=== PATIENT | male | born 1955 | race Caucasian/White ===

== ENCOUNTER → 2023-07-09 19:28 | Outpatient (REF) | payer MEDICARE, OTHER, SELFPAY ==
[2023-07-09 19:46] LABS: Urine Albumin 1+ (Neg - Trace); Urine Bilirubin Negative (Negative); Urine Character Slightly Cloudy (Clear); Urine Color Yellow; Urine Glucose Negative (Negative); Urine Ketone Negative (Negative); Urine Leukocyte 2+ (Negative); Urine Nitrite Positive (Negative); Urine Occult Blood 1+ (Negative); Urine Urobilinogen Negative (Neg - 1+)
[2023-07-09 19:47] LABS: % Basophils 0.3 % (0-2); % Immature Granulocytes 1.9 % (0-0.5); % Lymphocytes 1.5 % (20.5-51.1); % Monocytes 1.9 % (1.7-9.3); % Neutrophils 94.4 % (42.2-75.2); Absolute Basophils 0.1 10^3/uL (0-0.2); Absolute Immature Granulocytes 0.7 10^3/uL (0-0.05); Absolute Lymphocytes 0.6 10^3/uL (1.2-3.4); Absolute Monocytes 0.7 10^3/uL (0.1-0.6); Absolute Neutrophils 33.7 10^3/uL (1.4-6.5); Hematocrit 33.6 % (39.0-52.0); Hemoglobin 11.2 g/dL (13.0-18.0); Mean Corp Hgb Conc. 33.3 g/dL (33.0-37.0); Mean Corpuscular Hgb 25.6 pg (27.0-31.0); Mean Corpuscular Volume 76.7 fL (80.0-94.0); Mean Platelet Volume 9.1 fL (7.4-10.4); Nucleated Red Blood Cells % 0 % (-); Platelet Count 423 10^3/uL (130-400); Red Blood Cell Count 4.38 10^6/uL (4.70-6.10); Red Cell Dist. Width 15.9 % (11.5-14.5); White Blood Cell Count 35.7 10^3/uL (4.8-10.8)
[2023-07-09 19:50] LABS: Urine Bacteria Moderate (Negative); Urine Squamous Cell 0-2 /LPF (Few); Urine White Cell 60-70 /HPF (0-5)
[2023-07-09 19:51] LABS: Urine Red Blood Cell 0-2 /HPF (0-2)
[2023-07-09 20:06] LABS: Blood Urea Nitrogen 24 mg/dl (9-20); Calcium 8.8 mg/dl (8.4-10.2); Carbon Dioxide 27 mmol/L (22-30); Chloride 99 mmol/L (98-107); Glucose 125 mg/dl (70-99); Potassium 4.3 mmol/L (3.5-5.1); Sodium 133 mmol/L (135-145); eGFR > 60.00
== END ==
LOC: OLAB 19:28
PROVIDERS: ATTENDING PHYSICIAN Student in an Organized Health Care Education/Training Program
DX: R50.9 Fever, unspecified (principal)
CPT/HCPCS: 80048; 81003; 81015; 85025; 87086

== ENCOUNTER 2023-07-10 01:03 | Inpatient (IN) | payer MEDICARE, SELFPAY ==
[2023-07-09 22:02] VITALS: BP 120/53
[2023-07-09 22:04] VITALS: BP 148/137
[2023-07-09 22:08] VITALS: BMI 37.3
[2023-07-09 22:11] VITALS: BP 123/53
--- NOTE | 2023-07-09 22:45 | ED.GENMED ---
History of Present Illness
General
Chief Complaint: Abnormal Lab Value
Source: patient and other (Nursing staff)
Exam Limitations: none
Time Seen by Provider: 07/09/23 22:10
Travel History
Have you had any contact with someone who has COVID-19?: No
Do you have any symptoms of coronavirus? Fever > 100 degrees, chills, cough, shortness of breath, sore throat, loss of taste or smell, muscle aches, or headache?: No
History of Present Illness
History of Present Illness:
This is a 68 year old male that comes in with c/o elevated WBC and low grade fever. Unsure when this started. Patient denies any fever, chills, chest pain, SOB, abd pain, nausea, vomiting, diarrhea, headache, dizziness.
Past History
Past History
ED Past Medical History: CAD, Cancer (Skin CA), HTN, Hypercholesterolemia, NIDDM, Hypothyroidism, Other (Multiple sclerosis, PE, PVD, Pressure ulcers, DVT, Sleep apnea, Anemia, ) and Other (prior vasovagal episodes related to constipation issues,
chronic constipation)
ED Past Surgical History: Appendectomy, Orthopedic (Right femur), Tonsilectomy (Adenoids), Urological (Suprapubic catheter) and Other (Baclofen pump insertion. IVC filter)
Social History
Tobacco: Non-smoker
Alcohol: None
Drug: None
Personal:
Living: alf
Employment: Not employed
Family History
Family History: Other (Reviewed and noncontributory)
Review of Systems
Review of Systems
All Other Systems: ROS reviewed and negative except as documented in HPI and ROS
Constitutional: Reports no symptoms; Denies fever or chills
EENT: Reports no symptoms
Respiratory: Reports no symptoms; Denies cough or trouble breathing
Cardiac: Reports no symptoms; Denies chest pain
ABD/GI: Reports no symptoms; Denies abdominal pain, nausea, vomiting or diarrhea
: Reports no symptoms
Musculoskeletal: Reports no symptoms
Skin: Reports no symptoms
Neurological: Reports no symptoms; Denies dizzy or headache
Psychiatric: Reports no symptoms
Phy Exam
General Physical Exam
General Presentation: no apparent distress
General age: appears stated age
General Skin: warm and dry
General Habitus: debilitated
General Mental: other (Lethargic but able to answer questions)
General Hydration: dry mucous membranes
ENT Exam
ENT Exam: TM's normal, pharynx normal and neck supple
Eye Exam
Eye Exam: EOMI
Cardiovascular Exam
Cardiovascular Exam: normal peripheral pulses and tachycardia
Pulmonary Exam
Pulmonary Exam: lungs clear, no respiratory distress, no rales, chest non tender, no crackles, no rhonchi, no wheezing and no cough
Gastrointestinal Exam
Gastrointestinal Exam: normal bowel sounds, non tender, soft, no organomegaly, no pulsatile mass and non distended
External Findings: other (Suprapubic catheter)
Musculoskeletal Exam
Musculoskeletal Exam: edema (Feet and lower legs nonpitting. Patient is unable to move the lower extremities. )
Skin Exam
Skin Exam: normal color, warm/dry, no petechia and redness (Bilateral hips and thighs down to knee's , Warm to touch two Sacral decubs, negative for drainage or redness. )
Psychiatric Exam
Psychiatric Exam: other (Lethargic)
Course
Orders/Labs/Results
Orders:
Orders
07/09/23 22:14
Electrocardiogram (*1) Urgent
Reason for Study: Other
Other Reason for Exam: Possible Sepsis
07/09/23 22:15
EKG- Treatment ONCE
07/09/23 22:44
Basic Metabolic Panel Urgent
Blood Culture Q30M
MARA Source: Blood/Venous
Specimen Description:
Comment: FROM 2 SEPARATE SITES
07/09/23 22:45
Complete Blood Count/With Diff Urgent
Lactic Acid Q4H
Comment: ON ICE, CANCEL 2ND ORDER IF FIRST LACTIC ACID LEVEL <2
Urinalysis Reflex To Culture Urgent
Date Specimen was Collected: 07/09/23
Time Specimen was Collected: 22:15
Urine Microscopic Reflex Cult Urgent
Blood Culture Q30M
MARA Source: Blood/Venous
Specimen Description:
Comment: FROM 2 SEPARATE SITES
Urine Culture Urgent
MARA Source: U
Specimen Description:
Date Specimen was Collected: 07/09/23
Time Specimen was Collected: 22:15
07/09/23 22:46
Rectal Temp- Treatment ONCE
07/09/23 23:42
Piperacillin/Tazo 3.375 Gram [Zosyn] 3.375 gram in 50 ml IV NOW
Vancomycin 1 Gram/200 ml [Vancocin] 1 gram in 200 ml IV NOW
07/09/23 23:45
0.9% Sodium Chloride 1000 ml [Nss] 1,000 ml IV 2,000 mls/hr
07/09/23 23:51
COVID-19 Antigen Urgent
Source: Nasal Swab
Influenza A+B Rapid Molecular Urgent
MARA Source: Nasal Swab
Specimen Description:
07/10/23 00:06
CR Chest - 2 Views Urgent
Reason For Exam: Fever
07/10/23 02:15
Lactic Acid Q4H
Comment: ON ICE, CANCEL 2ND ORDER IF FIRST LACTIC ACID LEVEL <2
Abnormal Lab Results
07/09/23 07/09/23
22:44 22:45
WBC 42.7 H* 10^3/uL
(4.8-10.8)
RBC 4.57 L 10^6/uL
(4.70-6.10)
Hgb 11.6 L g/dL
(13.0-18.0)
Hct 34.3 L %
(39.0-52.0)
MCV 75.1 L fL
(80.0-94.0)
MCH 25.4 L pg
(27.0-31.0)
RDW 16.3 H %
(11.5-14.5)
Abs Immat Gran (auto) 0.7 H 10^3/uL
(0-0.05)
Absolute Neuts (auto) 41.1 H 10^3/uL
(1.4-6.5)
Absolute Lymphs (auto) 0.5 L 10^3/uL
(1.2-3.4)
Immature Gran % 1.5 H %
(0-0.5)
Neutrophils % 96.2 H %
(42.2-75.2)
Lymphocytes % 1.1 L %
(20.5-51.1)
Monocytes % 0.9 L %
(1.7-9.3)
Sodium 133 L mmol/L
(135-145)
Carbon Dioxide 20 L mmol/L
(22-30)
BUN 24 H mg/dl
(9-20)
Glucose 123 H mg/dl
(70-99)
Lactic Acid 3.6 H mmol/L
(0.7-2.0)
Urine Nitrite (Reflex) Positive A
(Negative)
Leukocyte Esterase Rfl 2+ A
(Negative)
Urine RBC 7-10 A /HPF
(0-2)
Urine WBC (Reflex) 21-25 A /HPF
(0-5)
Urine Bacteria (Reflex) Many A
(Negative)
07/09/23 22:45
07/09/23 22:44
Leukocytosis, H/H slighty low. Sodium slightly low. Carbon dioxide low. Dehydration. Glucose nonfasting. Lactic acid elevated to 3.6, Urine questionable for infection. COVID negative, Influenza negative.
Vital Signs
Initial and Last Documented VS:
Initial Vital Signs
Temp Pulse Resp BP Pulse Ox
98.4 F 100 28 120/53 96
07/09/23 22:02 07/09/23 22:02 07/09/23 22:02 07/09/23 22:02 07/09/23 22:02
Last Documented Vital Signs
Temp Pulse Resp BP Pulse Ox
101.5 F H 101 26 121/68 96
07/09/23 22:46 07/09/23 23:30 07/09/23 22:11 07/09/23 23:10 07/09/23 23:30
MDM/Problems Addressed
Differential Diagnosis Includes:
UTI, COVID, Influenza. Cellulitis.
MDM/Problems Addressed:
This is a 68 year old male that comes in with c/o elevated WBC and weakness. Patient states that he also has a low grade fever.
Will get labs, Urine, Chest, Test for COVID and Influenza.
Chronic conditions affecting care: DM and Other (Suprapubic catheter,, Sacral decub)
Acute Exacerbation and/or Progression of Chronic Illness: DM and Other (Suprapubic catheter. Sacral decub)
*Pulse Oximetry
Patient hypoxic: no
*Automatic Coin Machine Mechanic Interpretation
Rate: tachycardiac
Heart Rate: 100
Rhythm: sinus tachycardia
*Critical Care Note
Total Time (30-74mins, 75-104mins- exclusive of procedures): Not Applicable
ED Attending Note
-
Portions of this chart may have been created with voice recognition software.� Occasional wrong word or��sound alike� substitutions may have occurred due to the inherent limitations of voice recognition software.
Discharge Plan
Departure
Patient Disposition: Admit
Date of Disposition: 07/09/23
Time of Disposition: 23:51
Presentation/result/management discussed w/ accepting MD/DO: Hospitalist
Patient with high blood pressure during this ER visit?: No
Condition: Good
Discharge Problem:
Cellulitis bilateral hips and thighs, Possible UTI
Prescriptions:
No Action
metformin 500 mg Tablet
500 mg PO BID@0830,1830
atorvastatin 20 mg Tablet
20 mg PO HS
sennosides-docusate sodium [Senokot-S] 8.6-50 mg Tablet
2 tab-cap PO BID
magnesium hydroxide [Milk of Magnesia] 400 mg/5 mL Suspension
30 ml PO HS PRN (Reason: constipation)
ferrous sulfate 325 mg (65 mg iron) Tablet
325 mg PO MOWEFR
levothyroxine 150 mcg Tablet
150 mcg PO DAILY@0630
omeprazole 20 mg Capsule,Delayed Release(Dr/Ec)
20 mg PO HS
Xarelto 20 mg Tablet
20 mg PO QPM
magnesium oxide 400 mg magnesium Tablet
400 mg PO BID
acetaminophen 325 MG tablet
650 mg PO Q4HPRN PRN (Reason: fever>100.4, mild pain)
bisacodyl 10 MG suppository
10 mg ND [id number] PRN (Reason: if no bm on 3rd day)
ezetimibe 10 MG tablet
10 mg PO DAILY
Visbiome 112.5 billion cell Capsule
1 cap PO BID
calcium carbonate [Calcium 600] 600 mg calcium (1,500 mg) Tablet
600 mg PO BID
ergocalciferol (vitamin D2) 1,250 mcg (50,000 unit) Capsule
1,250 mcg PO WE
polyethylene glycol 3350 [HealthyLax] 17 gram Powder In Packet
17 g PO BID Qty: 0 0RF
pantoprazole 40 mg Tablet,Delayed Release (Dr/Ec)
40 mg PO DAILY Qty: 0 0RF
metoprolol succinate [Toprol XL] 50 mg tablet extended release 24 hr
50 mg PO DAILY Qty: 30 0RF
simethicone 80 mg Tablet,Chewable
80 mg PO AC
melatonin 5 mg Tablet
5 mg PO HS
Movantik 25 mg tablet
12.5 mg PO DAILY
Patient Own Medication Pump
intrathecal .CONTINUOUS
Rx Instructions:
baclofen and morphine
potassium chloride [Klor-Con M20] 20 mEq tablet,ER particles/crystals
20 meq PO BID
sulfamethoxazole-trimethoprim 800-160 mg Tablet
1 tab PO BID Qty: 1 0RF
Rx Instructions:
One dose today evening and stop.
cephalexin 500 mg Capsule
500 mg PO QID Qty: 7 0RF
Rx Instructions:
Last dose 11/17 Evening
Referrals:
UNKNOWN - PT NOT,INTERVIEWE [Family Provider] -
Interventions
Interventions:
*Risk Screen - Suicide Last Done: 07/10/23 00:04
*General Assessment Last Done: 07/10/23 00:04
*Neglect/Abuse Screening Last Done: 07/10/23 00:04
ED- Fall Risk Assessment Last Done: 07/09/23 22:49
*ED COVID-19 Vaccine History Last Done: 07/10/23 00:04
[2023-07-09 22:59] LABS: % Basophils 0.3 % (0-2); % Immature Granulocytes 1.5 % (0-0.5); % Lymphocytes 1.1 % (20.5-51.1); % Monocytes 0.9 % (1.7-9.3); % Neutrophils 96.2 % (42.2-75.2); Absolute Basophils 0.1 10^3/uL (0-0.2); Absolute Immature Granulocytes 0.7 10^3/uL (0-0.05); Absolute Lymphocytes 0.5 10^3/uL (1.2-3.4); Absolute Monocytes 0.4 10^3/uL (0.1-0.6); Absolute Neutrophils 41.1 10^3/uL (1.4-6.5); Hematocrit 34.3 % (39.0-52.0); Hemoglobin 11.6 g/dL (13.0-18.0); Mean Corp Hgb Conc. 33.8 g/dL (33.0-37.0); Mean Corpuscular Hgb 25.4 pg (27.0-31.0); Mean Corpuscular Volume 75.1 fL (80.0-94.0); Mean Platelet Volume 9.3 fL (7.4-10.4); Nucleated Red Blood Cells % 0 % (-); Platelet Count 318 10^3/uL (130-400); Red Blood Cell Count 4.57 10^6/uL (4.70-6.10); Red Cell Dist. Width 16.3 % (11.5-14.5)
[2023-07-09 23:05] LABS: White Blood Cell Count 42.7 10^3/uL (4.8-10.8)
[2023-07-09 23:10] VITALS: BP 121/68
[2023-07-09 23:19] LABS: Blood Urea Nitrogen 24 mg/dl (9-20); Calcium 8.8 mg/dl (8.4-10.2); Carbon Dioxide 20 mmol/L (22-30); Chloride 101 mmol/L (98-107); Estimated Creatinine Clearance > 125 ml/min; Glucose 123 mg/dl (70-99); Sodium 133 mmol/L (135-145); eGFR > 60.00
[2023-07-09 23:23] LABS: Lactic Acid 3.6 mmol/L (0.7-2.0)
[2023-07-09 23:26] LABS: Urine Albumin Trace (Neg - Trace); Urine Bilirubin Negative (Negative); Urine Character Clear (Clear); Urine Color Yellow; Urine Glucose Negative (Negative); Urine Ketone Negative (Negative); Urine Leukocyte 2+ (Negative); Urine Nitrite Positive (Negative); Urine Occult Blood Negative (Negative); Urine Urobilinogen Negative (Neg - 1+)
[2023-07-09] MEDS: ZOSYN 50 IV (23:53)
[2023-07-09] MEDS: NSS 1000 IV (23:54)
[2023-07-10] VITALS (70 sets, daily range): BP systolic 73–157; BP diastolic 43–82; BMI 40.3; BMI 40.0
[2023-07-10 00:15] LABS: COVID-19 Antigen Negative (Negative)
[2023-07-10 00:18] LABS: Urine Amorphous Seen; Urine Bacteria Many (Negative); Urine White Cell 21-25 /HPF (0-5)
[2023-07-10] MEDS: VANCOCIN 200 IV ×2 (00:23→02:54)
--- NOTE | 2023-07-10 00:33 | HPS.HSE ---
Addendum entered and electronically signed by Thomas Lafleur MD 07/10/23 01:53:
SPC cath fell out - Urology consulted by ICU REFRACTORY SPECIALIST
Original Note:
Family Physician
-
Family Physician: INTERVIEWE UNKNOWN - PT NOT
Chief Complaint
-
leucocytosis and low grade fever.
History of Present Illness
68 paraplegic M NH Res, HX MS, Morbidly obese, multiple comorbiddies seen at ER for evalaution of severe progressive leucocytosis and low grade fever. Unsure when this started.
Noted T 101.5 at ER, ST and stable BP at ER
Medical History
Past Medical History
Past Medical History: Reports Other
Additional Past Medical History:
Supraventricular tachycardia.
Abdominal pain and constipation induced by narcotics.
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
Multiple sclerosis.
Paraplegia.
Anemia.
Chronic pain syndrome.
Neurogenic bladder.
Diabetes.
Obesity.
Hyperlipidemia.
History of deep venous thrombosis.
Hypothyroidism.
Functional paraplegia
History of pulmonary embolism
Katiuska's Syndrome
Past Surgical History: Reports Other
Additional Past Surgical History:
IVC Filter
Baclofen/Morphine Pump
Appendectomy
Suprapubic Catheter
Social History
Tobacco: Non-smoker
Alcohol: None
Living: [facility]
Family History
Family History: Not pertinent
Allergies / Home Medications
Allergies reflects when Allergies were last updated in [employer].
Home Medications with original date entered in [employer]
Allergy/Medication List:
Allergies
Allergy/AdvReac Type Severity Reaction Status Date / Time
albumin human [From Avonex] Allergy FLU-LIKE Verified 11/09/22 13:28
S/S
interferon beta-1a Allergy FLU-LIKE Verified 11/09/22 13:28
[From Avonex] S/S
shellfish derived Allergy Unknown Verified 11/09/22 13:28
Home Medications
acetaminophen 325 mg tablet 650 mg PO Q4HPRN PRN fever>100.4, mild pain 07/13/22
atorvastatin 20 mg tablet 20 mg PO HS High cholesterol 07/13/22
bisacodyl 10 mg rectal suppository 10 mg GA [id number] PRN if no bm on 3rd day 07/13/22
ezetimibe 10 mg tablet 10 mg PO DAILY High cholesterol 07/13/22
ferrous sulfate 325 mg (65 mg iron) tablet 325 mg PO MOWEFR Supplement 07/13/22
levothyroxine 150 mcg tablet 150 mcg PO DAILY@0630 Thyroid 07/13/22
magnesium hydroxide 400 mg/5 mL oral suspension (Milk of Magnesia) 30 ml PO HS PRN constipation 07/13/22
magnesium oxide 400 mg PO BID Electrolyte Repletion 07/13/22
metformin 500 mg tablet 500 mg PO BID@0830,1830 Diabetes 07/13/22
omeprazole 20 mg capsule,delayed release 20 mg PO HS Gastrointestinal issue 07/13/22
rivaroxaban 20 mg tablet (Xarelto) 20 mg PO QPM Blood clot prevention/tx 07/13/22
sennosides 8.6 mg-docusate sodium 50 mg tablet (Senokot-S) 2 tab-cap PO BID Constipation 07/13/22
Lactobac no.2-Bifidobac no.1-S. thermo 112.5 billion cell capsule (Visbiome) 1 cap PO BID Supplement 07/20/22
calcium carbonate 600 mg calcium (1,500 mg) tablet (Calcium) 600 mg PO BID Supplement 09/11/22
ergocalciferol (vitamin D2) 1,250 mcg (50,000 unit) capsule 1,250 mcg PO WE Supplement 09/11/22
metoprolol succinate 50 mg tablet,extended release 24 hr (Toprol XL) 50 mg PO DAILY #30 tabs 09/16/22
pantoprazole 40 mg tablet,delayed release 40 mg PO DAILY #0 tabs 09/16/22
polyethylene glycol 3350 17 gram oral powder packet (HealthyLax) 17 g PO BID #0 ea 09/16/22
Patient Own Medication Pump intrathecal .CONTINUOUS Pain 11/09/22
melatonin 5 mg tablet 5 mg PO HS Sleep 11/09/22
naloxegol 25 mg tablet (Movantik) 12.5 mg PO DAILY Gastrointestinal Issue 11/09/22
simethicone 80 mg chewable tablet 80 mg PO AC Gastrointestinal Issue 11/09/22
potassium chloride 20 mEq tablet,extended release(part/cryst) (Klor-Con M) 20 meq PO BID Electrolyte Repletion 11/10/22
<del>cephalexin</del> <del>500</del> <del>mg</del> <del>capsule</del> <del>500</del> <del>mg</del> <del>PO</del> <del>QID</del> <del>Cellulitis</del> <del>#7</del> <del>caps</del> <del>11/14/22</del>
<del>sulfamethoxazole</del> <del>800</del> <del>mg-trimethoprim</del> <del>160</del> <del>mg</del> <del>tablet</del> <del>1</del> <del>tab</del> <del>PO</del> <del>BID</del> <del>E</del> <del>coli</del> <del>UTI</del> <del>#1</del> <del>tab</del>
<del>11/14/22</del>
Review of Systems
-
EENT: Reports No Symptoms
Respiratory: Reports No Symptoms
Cardiac: Reports No Symptoms
Abdomen/GI: Reports No Symptoms
: Reports No Symptoms
Musculoskeletal: Reports No Symptoms
Skin: Reports See HPI
Neurological: Reports No Symptoms
Endocrine: Reports No Symptoms
Hematologic/Lymphatic: Reports No Symptoms
Psych: Reports No Symptoms
Physical Exam
Vital Signs
Vital Signs
Temp Pulse Resp BP Pulse Ox
101.5 F H 108 26 136/80 97
07/09/23 22:46 07/10/23 00:00 07/09/23 22:11 07/10/23 00:00 07/10/23 00:00
Physical Exam
HEENT: Other (see below )
Laboratory Results
-
07/09/23 22:45
07/09/23 22:44
Laboratory Results
Lactic Acid 3.6 mmol/L (0.7-2.0) H 07/09/23 22:45
Total Bilirubin Cancelled 07/09/23 22:44
AST Cancelled 07/09/23 22:44
ALT Cancelled 07/09/23 22:44
Alkaline Phosphatase Cancelled 07/09/23 22:44
Data Reviewed
-
Lab Data: Labs Reviewed by me
Old Records: Reviewed
Impression/Plan
-
Reviewed VS: T 101.5 ST 100 BP 120/70 RR 26
PE: Morbidly Obese
Gen: Lethargic but able to answer questions
HEENT: dry OM
Neck: supple
Lungs: clear, no respiratory distress, no rales,
Cor: RRR S1 S2
Abdomen: soft NT NG
: Suprapubic catheter
SUPPRESSION CREW LEADER:
MS: Erythema noted. No crepitus or hemorrhagic bullae.
Skin: Warm to touch bilateral hips and thighs down to knee's
two Sacral decub, no drainage or redness.
Psych: Lethargic
Data
WCC 35--> 42
Hgb 11.6
Na 133
CO2 20
BUN 24
nl Cr
BG 123
Pending LA
Abnormal UA suspect for UTI
UCx sent
BCx sent
Pending Covid
EKG
SINUS TACHYCARDIA
NONSPECIFIC ST AND T WAVE ABNORMALITY
ABNORMAL ECG
WHEN COMPARED WITH ECG OF 09-NOV-2022 17:52,
NO SIGNIFICANT CHANGE WAS FOUND
Last hospitalist admission 11/09/22- 11/04/22
Principal DC DXs :
Severe sepsis secondary to right leg cellulitis
Urinary tract infection
Nausea and vomiting
Chronic Discharge diagnosis :
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
Multiple sclerosis and paraplegia
Neurogenic bladder with chronic suprapubic catheter
Chronic pain and narcotic dependence
Morphine and baclofen pain pump in place
Iron deficiency anemia
Zqq-[id number]-vthcemxoj diabetes mellitus
Obesity due to excessive calorie intake
Hyperlipidemia
History of deep venous thrombosis and inferior vena cava filter placement
Hypothyroidism
ASSESSMENT & PLAN
Severe sepsis likely due right thigh cellulitis vs CAUTI vs sacral wound
POS Severe leukocytosis
Pending LA
HX Neurogenic bladder wear chronic SPC
- Septic bolus IV NS
- Empiric IV vanco and Zosyn
- f/u UA, UCx, BCx
- Supportive care
- ID consult
HX SVT�AVNRT
- cont HEAD OF [employer]NER DEVELOPMENT Cardizem
Sacral decube and left ischium unstageable pressure injury
- wound care consult
HX Multiple sclerosis/paraplegia
- supportive care
Chronic pain syndrome/chronic opiate dependence
- on morphine and baclofen pain pump.
DMT2
-hold metformin,
- add Low SSI
Class II Obesity due to excess calories
Hyperlipidemia
- cont. Statin, Zetia
HX DVT/IVC filter
-on [employer]OP[employer] Xarelto.
Hypothyroidism
- cont. [employer]ELOP[employer] Synthroid.
DVT Px: on chr Xarelto
Code: Full
IMU
[2023-07-10] MEDS: NSS 1000 IV ×4 (02:41→16:04)
[2023-07-10] MEDS: TYLENOL/FEVERALL 1000 MG RECTAL (02:49)
--- NOTE | 2023-07-10 04:14 | PTCARENOTE ---
Addendum entered by Patricia Boykin RN 07/10/23 04:23:
O2 sat 95% room air.Close observation ongoing throughout the night.
Original Note:
Received pt from ER,lethargic answering yes or no,flat affect,tolerated transfer well.Pts physical assessment preformed,buttocks red and presents with 2 drsgs,(see wound assessment in work list),VS recorded ST conveyor monitor,rectal temp
102.7,rectal tylenol given after assessment,with turning and assessment suprapubic catheter slid out,balloon was NOT inflated on cath tip.Urology called (Ramon) by our DECAL MAKER,he stated to reinsert,Marianne RN inserted #22 thomas catheter with
ease,immediate yellow urine return,no trauma at meatal site.IVF NSS infusing,bp stable,no resp issues,O2 sat9
[2023-07-10 04:17] LABS: Hematocrit 37.2 % (39.0-52.0); Hemoglobin 12.2 g/dL (13.0-18.0); Mean Corp Hgb Conc. 32.8 g/dL (33.0-37.0); Mean Corpuscular Hgb 25.5 pg (27.0-31.0); Mean Corpuscular Volume 77.7 fL (80.0-94.0); Mean Platelet Volume 8.6 fL (7.4-10.4); Platelet Count 372 10^3/uL (130-400); Red Blood Cell Count 4.79 10^6/uL (4.70-6.10); Red Cell Dist. Width 16.3 % (11.5-14.5); White Blood Cell Count 38.5 10^3/uL (4.8-10.8)
[2023-07-10 04:33] LABS: Lactic Acid 4.8 mmol/L (0.7-2.0)
[2023-07-10 04:40] LABS: ALT (SGPT) 18 U/L (0-50); AST (SGOT) 26 U/L (17-59); Albumin 3.4 g/dl (3.5-5.0); Alkaline Phosphatase 133 U/L (38-126); Blood Urea Nitrogen 20 mg/dl (9-20); Calcium 8.7 mg/dl (8.4-10.2); Carbon Dioxide 22 mmol/L (22-30); Chloride 101 mmol/L (98-107); Estimated Creatinine Clearance > 125 ml/min; Glucose 153 mg/dl (70-99); Potassium 4.5 mmol/L (3.5-5.1); Sodium 134 mmol/L (135-145); Total Bilirubin 0.8 mg/dl (0.2-1.3); Total Protein 7.2 g/dl (6.3-8.2); eGFR > 60.00
[2023-07-10] MEDS: ZOSYN 50 IV ×2 (06:11→11:51)
[2023-07-10] MEDS: NSS 250 IV (06:14)
--- NOTE | 2023-07-10 06:21 | CONS.URO ---
Consultation
-
Date/Time Consultation Performed: 07/10/23 06
Performing Provider: Ramon
Reason for Consultation: SPT
Medical History
History of Present Illness
68 paraplegic M NH Res, HX MS, Morbidly obese, multiple comorbiddies seen at ER for evalaution of severe progressive leucocytosis� and low grade fever.
existing SPT 'fell out' -- fortunately RN was able to replace w/o issue
Past Medical History
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
Chronic pain and narcotic dependence Morphine and baclofen pain pump in place Ir)
Allergies/Home Medications
Allergies
Allergy/AdvReac Type Severity Reaction Status Date / Time
albumin human [From Avonex] Allergy FLU-LIKE Verified 11/09/22 13:28
S/S
interferon beta-1a Allergy FLU-LIKE Verified 11/09/22 13:28
[From Avonex] S/S
shellfish derived Allergy Unknown Verified 11/09/22 13:28
Home Medications
Medication Instructions Recorded Confirmed Type
acetaminophen 325 mg tablet 650 mg PO Q4HPRN PRN fever>100.4, 07/13/22 11/09/22 History
mild pain
atorvastatin 20 mg tablet 20 mg PO HS High cholesterol 07/13/22 11/09/22 History
bisacodyl 10 mg rectal suppository 10 mg NC [id number] PRN if no bm on 07/13/22 11/09/22 History
3rd day
ezetimibe 10 mg tablet 10 mg PO DAILY High cholesterol 07/13/22 11/09/22 History
ferrous sulfate 325 mg (65 mg 325 mg PO MOWEFR Supplement 07/13/22 11/09/22 History
iron) tablet
levothyroxine 150 mcg tablet 150 mcg PO DAILY@0630 Thyroid 07/13/22 11/09/22 History
magnesium hydroxide 400 mg/5 mL 30 ml PO HS PRN constipation 07/13/22 11/09/22 History
oral suspension (Milk of Magnesia)
magnesium oxide 400 mg PO BID Electrolyte Repletion 07/13/22 11/09/22 History
metformin 500 mg tablet 500 mg PO BID@0830,1830 Diabetes 07/13/22 11/09/22 History
omeprazole 20 mg capsule,delayed 20 mg PO HS Gastrointestinal issue 07/13/22 11/09/22 History
release
rivaroxaban 20 mg tablet (Xarelto) 20 mg PO QPM Blood clot 07/13/22 11/09/22 History
prevention/tx
sennosides 8.6 mg-docusate sodium 2 tab-cap PO BID Constipation 07/13/22 11/09/22 History
50 mg tablet (Senokot-S)
Lactobac no.2-Bifidobac no.1-S. 1 cap PO BID Supplement 07/20/22 11/09/22 History
thermo 112.5 billion cell capsule
(Visbiome)
calcium carbonate 600 mg calcium 600 mg PO BID Supplement 09/11/22 11/09/22 History
(1,500 mg) tablet (Calcium)
ergocalciferol (vitamin D2) 1,250 1,250 mcg PO WE Supplement 09/11/22 11/09/22 History
mcg (50,000 unit) capsule
metoprolol succinate 50 mg 50 mg PO DAILY #30 tabs 09/16/22 11/09/22 Rx
tablet,extended release 24 hr
(Toprol XL)
pantoprazole 40 mg tablet,delayed 40 mg PO DAILY #0 tabs 09/16/22 11/09/22 Rx
release
polyethylene glycol 3350 17 gram 17 g PO BID #0 ea 09/16/22 11/09/22 Rx
oral powder packet (HealthyLax)
Patient Own Medication Pump intrathecal .CONTINUOUS Pain 11/09/22 History
melatonin 5 mg tablet 5 mg PO HS Sleep 11/09/22 11/09/22 History
naloxegol 25 mg tablet (Movantik) 12.5 mg PO DAILY Gastrointestinal 11/09/22 11/09/22 History
Issue
simethicone 80 mg chewable tablet 80 mg PO AC Gastrointestinal Issue 11/09/22 11/09/22 History
potassium chloride 20 mEq 20 meq PO BID Electrolyte Repletion 11/10/22 11/09/22 History
tablet,extended
release(part/cryst) (Klor-Con M)
cephalexin 500 mg capsule 500 mg PO QID Cellulitis #7 caps 11/14/22 Rx
sulfamethoxazole 800 1 tab PO BID E coli UTI #1 tab 11/14/22 Rx
mg-trimethoprim 160 mg tablet
Physical Exam
Vital Signs
Vital Signs
Temp Pulse Resp BP Pulse Ox
100.2 F 107 19 141/82 94
07/10/23 06:20 07/10/23 02:45 07/10/23 02:45 07/10/23 02:12 07/10/23 03:47
Lab / Testing Results
Laboratory Results
07/10/23 04:09
07/10/23 04:09
Physical Exam
adult, obese male supine in ICU bed
Genito-urinary: Suprapubic Tube (via mature aperture draining zeinab urine)
Assessment / Plan
-
transient, inadvertent SPT dislodgement --> successfully replace and functioning normally
Data Reviewed
-
Old Records: Reviewed
--- NOTE | 2023-07-10 07:54 | PHA.VAN.IN ---
Assessment
- Assessment
Renal Function: Appears similar to baseline
Renal Function may be Overestimated due to: Obesity. BMI = 40
Maximum Temperature: 102.7
Minimum Temperature: 98.4
Concomitant Antimicrobials: Piperacillin-tazobactam
Historical Micro: History of MRSA infection
- Previous Dosing Experience
Previous Regimen: Vanc 1250mg IV q12H
Date of Regimen: 07/2022
Provided Trough of: 15.4
Provided AUC of: 487
Patient's SCR is: Similar to previous dosing experience (Previous calculated T1/2 from 07/2022 was 14hrs. q12h dosing switched to PRN by level.)
Patient's weight is: Similar to previous dosing experience
AUC Dosing Plan
- Dosing Variables
Dosing Weight (kg): 109
Dosing CrCl (ml/min): 125
Vd coefficient (L/kg): 0.5
- Empiric Dosing
Initial / Loading Dose: Vanc 2000mg (split load 1000mg 07/10 at 0023, 1000mg at 0254)
Maintenance Regimen: Vanc 1250mg IV q12H. Begin 1800 07/10
Estimated AUC (mcg*h/mL): 459
Estimated Peak (mcg*h/mL): 31.6
Estimated Trough (mcg/ml): 10.1
Estimated Half Life (H): 6.4
- Monitoring
Peak level is ordered to be drawn (date/time): 07/11 at 2100
Trough level is ordered to be drawn (date/time): 07/12 at 0530
Levels to be Drawn after Dose #: 3
Pharmacokinetics Vancomycin I
- -
Patient Age: 68
Patient Sex: Male
Vancomycin Day #: 1
Indication: Skin And Soft Tissue
Requesting Provider: Ciarra
Height / Weight:
Height 5 ft 5 in
Actual Weight 109 kg
IBW in k.5
Adjusted BW in k.5
Pertinent Past Medical History: Paraplegic; Obese; Does not follow population PK
- Vital Signs / Lab Results
Temp Pulse Resp BP Pulse Ox
101 F H 106 25 138/75 95
07/10/23 07:43 07/10/23 06:15 07/10/23 06:15 07/10/23 06:00 07/10/23 06:15
Lab Results - Hematology
07/09/23 07/10/23
22:45 04:09
WBC 42.7 H* 38.5 H
Lab Results - Chemistry
07/09/23 07/10/23
22:44 04:09
BUN 24 H 20
Creatinine 0.7 0.6 L
Estimated Creat Clear > 125 > 125
Albumin Cancelled 3.4 L
07/09/23 07/10/23 07/10/23
22:45 04:09 04:10
Lactic Acid 3.6 H 4.8 H* Cancelled
Lab Results - Urine
07/09/23
22:45
Urine Nitrite (Reflex) Positive A
Leukocyte Esterase Rfl 2+ A
Urine WBC (Reflex) 21-25 A
Ur Squamous Epith Cells 11-15
Urine Bacteria (Reflex) Many A
Microbiology Results
07/09/23 23:51 Influenza Types A & B (NICKY) - Final
Nasal Swab Negative for Influenza A & B, NAAT
Negative results must be combined with clinical observations
and patient history.
Nucleic Acid Amplification test (NAAT)performed on the
[employer] NOW platform.
[2023-07-10] MEDS: NOVOLOG FLEXPEN-LOW RESISTANCE SC ×2 (07:57→11:39)
--- NOTE | 2023-07-10 08:00 | PTCARENOTE ---
Received pt from previous shift. Assessment performed, see flowsheets. Pt asleep in bed. Able to state name but not where we are. Opens eyes briefly to voice but then closes them and goes to sleep right away. Follows some commands. ST on heart
monitor, 94-96% on RA. +3 generalized anasarca. Thighs are red and warm. L calf is pink, and both calves are cool to touch. Rectal temp 102.7; tylenol suppository given. Q4h lactic drawn at 08:00. R thumb #[address] LAC #20 with NS at
80mL/hr. Pt had a bowel movement, perineal care performed. Will continue to monitor.
[2023-07-10 08:04] LABS: Glucose - Point of Care 130 mg/dl (70-99)
[2023-07-10] MEDS: TYLENOL/FEVERALL 650 MG RECTAL ×2 (08:18→16:26)
[2023-07-10 08:33] LABS: Glycohemoglobin (HgbA1c) 6.7 % (4.0-5.6)
[2023-07-10 08:34] LABS: Lactic Acid 3.4 mmol/L (0.7-2.0)
--- NOTE | 2023-07-10 09:15 | PTCARENOTE ---
Pt went into SVT, HR in the 180s. Became hypotensive, 79/43. Hospitalist and Suit Attendant notified. Pt converted back to ST at 09:13, BP now 108/60. Pt had felt SOB while in SVT, but feels better now. 2L NC had been applied right before pt went into
SVT. SaO2 96%. Will continue to monitor. Orders in for fluid bolus and cardiology consult.
--- NOTE | 2023-07-10 09:21 | W.PN.HOSP.TC ---
Today's Communication/Plan
-
Septic Shock
Continue Vancomycin and meropenem, as well as Clindamycin
Continue levophed, wean as tolerated
Adenosine for SVT assuming BP stable
Cardiology consulted
Assessment / Plan
Assessment / Plan
Physical Exam
General: Sleeping, arousable
HEENT: Normocephalic
Lungs: CTAB anteriorly
Cor: RRR S1 S2
Abdomen: soft NT NG
: Suprapubic catheter
Neuro: Sleeping, arousable
Assessment/Plan
Severe sepsis likely�due�right thigh cellulitis - spreading erythema
Septic Shock
Recent severe sepsis secondary to right leg cellulitis
History of of ESBL-E. coli in urine and MRSA colonization
Recent Urinary Tract Infection
Leukocytosis
- Septic bolus IV NS
- Continued Levophed
- Status post IV vanco and Zosyn
- Continue Vancomycin and Meropenem
- IV Clindamycin as per ID in case toxins involved in infection
- Follow-up cultures
- Supportive care
- ID consulted, recommendations appreciated
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
SVT into the 180s with hypotension (SBP in the 70s) - very short-lived on July 10, 2023 AM
-July 10, 2023 episode of hypotension and SVT resolved spontaneously, additonal fluid bolus ordered
-Hold home Toprol due to hypotension
-If recurs, can use Adenosine protocol
-Consulted Cardiology, recommendations appreciated
Iron deficiency anemia
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
-� wound care consult
Multiple sclerosis and paraplegia
Neurogenic bladder with chronic suprapubic catheter
Chronic pain syndrome/chronic opiate dependence
- on morphine and baclofen pain pump.
DMT2
�-hold metformin
- add Low SSI
Class II Obesity due to excess calories
Hyperlipidemia
- cont.� Statin, Zetia
HX DVT/IVC filter
-on APPLICATIONS PROCESSOR Xarelto.
Hypothyroidism
- cont. APPLICATIONS PROCESSOR Synthroid.
DVT Px: on chronic Xarelto
Code: Full
Septic shock and SVT needing monitor in the ICU is a high-risk encounter.
Anticipated Discharge: > 48 hours
Subjective/Interval History
-
Date of Service: July 10, 2023
Patient was seen and examined. Patient had a short burst of SVT this morning into the 180s associated with hypotension with SBP in the 70s, but this spontaneously resolved. Patient was sleeping comfortably when he was seen.
Objective Data
-
Labs:
Laboratory Results
07/09/23 07/09/23 07/10/23
22:44 22:45 04:09
WBC 42.7 H* 38.5 H
Hgb 11.6 L 12.2 L
Hct 34.3 L 37.2 L
Plt Count 318 D 372
Sodium 133 L 134 L
Potassium 4.5
Chloride 101 101
Carbon Dioxide 20 L 22
BUN 24 H 20
Creatinine 0.7 0.6 L
Glucose 123 H 153 H
Calcium 8.8 8.7
Total Bilirubin Cancelled 0.8
AST Cancelled 26
ALT Cancelled 18
Alkaline Phosphatase Cancelled 133 H
Vital Signs:
Vital Signs
Temp Pulse Resp BP Pulse Ox
102.7 F H 103 26 118/58 92
07/10/23 08:36 07/10/23 09:00 07/10/23 09:00 07/10/23 08:00 07/10/23 09:00
I&O
07/09/23 07/10/23 07/11/23
06:59 06:59 06:59
Intake Total 2690 / 2690
Output Total 500 / 500 100 / 100
Balance 2190 / 2190 -100 / -100
[2023-07-10 11:41] LABS: Glucose - Point of Care 106 mg/dl (70-99)
[2023-07-10] MEDS: LEVOPHED 250 IV (11:51)
--- NOTE | 2023-07-10 12:00 | PTCARENOTE ---
Tigertexted Clarisse at 11:00 about pt's low blood pressure of 75/48 despite the 1L NS bolus. Levophed orders received at around noon. Pharmacy Clinical Coordinator consulted and pt upgraded to ICU level of care. Pt now on 2L NC. HR remains stable. B/l lower
extremity edema now a +3 to +4. Redness and wamrth on thighs spreading to abdomen and back. The remainder of his assessment remains the same. Will continue to monitor.
--- NOTE | 2023-07-10 12:03 | CON.CAR ---
Consultation
Consultation Request
Date/Time Consultation Requested: 07/10/2023
Date/Time Consultation Performed: 07/10/2023
Requesting Provider: Dr. Robb
Performing Provider: Dr. Crandall
Reason for Consultation: SVT
Medical History
-
Chief Complaint: Fever
History of Present Illness:
68-year-old male with PSVT/AVNRT, coronary artery disease (specifics unknown), hypertension, hyperlipidemia, anemia, hypothyroidism, multiple sclerosis (immobile/bedbound), ambulatory dysfunction, chronic back pain with baclofen/morphine pump,
opioid-induced constipation, neurogenic bladder status post suprapubic catheter, and obesity presents from [facility] with fever and elevated white count--likely sepsis.� Patient is also noted to be on Xarelto, uncertain if this is due to
previous DVT/PE as there is no documentation of A-fib history. Cardiology was consulted as he went into SVT which appeared to be AVNRT. The patient is currently somnolent and unable to answer any questions.
Past Medical History
Past Medical History: Arrhythmias (PSVT/AVNRT), HTN and Hypercholesterolemia
Past Surgical History: Urological (Suprapubic catheter)
Social History
Tobacco: Non-Smoker
Alcohol: None
Living: Assisted
Family History
Family History: Unable to Obtain (Somnolent)
Allergies / Home Medications
Allergy/AdvReac Type Severity Reaction Status Date / Time
albumin human [From Avonex] Allergy FLU-LIKE Verified 11/09/22 13:28
S/S
interferon beta-1a Allergy FLU-LIKE Verified 11/09/22 13:28
[From Avonex] S/S
shellfish derived Allergy Unknown Verified 11/09/22 13:28
Medication Instructions Recorded Confirmed Type
acetaminophen 325 mg tablet 650 mg PO Q4HPRN PRN fever>100.4, 07/13/22 07/10/23 History
mild pain
atorvastatin 20 mg tablet 20 mg PO HS High cholesterol 07/13/22 07/10/23 History
bisacodyl 10 mg rectal suppository 10 mg MO [id number] PRN if no bm on 07/13/22 07/10/23 History
3rd day
ezetimibe 10 mg tablet 10 mg PO DAILY High cholesterol 07/13/22 07/10/23 History
ferrous sulfate 325 mg (65 mg 325 mg PO MOWEFR Supplement 07/13/22 07/10/23 History
iron) tablet
levothyroxine 150 mcg tablet 150 mcg PO DAILY@0630 Thyroid 07/13/22 07/10/23 History
magnesium hydroxide 400 mg/5 mL 30 ml PO HS PRN constipation 07/13/22 07/10/23 History
oral suspension (Milk of Magnesia)
magnesium oxide 400 mg PO BID Electrolyte Repletion 07/13/22 07/10/23 History
metformin 500 mg tablet 500 mg PO BID@0830,1830 Diabetes 07/13/22 07/10/23 History
omeprazole 20 mg capsule,delayed 20 mg PO HS Gastrointestinal issue 07/13/22 11/09/22 History
release
rivaroxaban 20 mg tablet (Xarelto) 20 mg PO QPM Blood clot 07/13/22 07/10/23 History
prevention/tx
sennosides 8.6 mg-docusate sodium 2 tab-cap PO BID Constipation 07/13/22 07/10/23 History
50 mg tablet (Senokot-S)
Lactobac no.2-Bifidobac no.1-S. 1 cap PO BID Supplement 07/20/22 11/09/22 History
thermo 112.5 billion cell capsule
(Visbiome)
calcium carbonate 600 mg calcium 600 mg PO BID Supplement 09/11/22 07/10/23 History
(1,500 mg) tablet (Calcium)
ergocalciferol (vitamin D2) 1,250 1,250 mcg PO WE Supplement 09/11/22 07/10/23 History
mcg (50,000 unit) capsule
pantoprazole 40 mg tablet,delayed 40 mg PO DAILY #0 tabs 09/16/22 11/09/22 Rx
release
Patient Own Medication Pump intrathecal .CONTINUOUS Pain 11/09/22 History
melatonin 5 mg tablet 6 mg PO HS Sleep 11/09/22 07/10/23 History
naloxegol 25 mg tablet (Movantik) 12.5 mg PO DAILY opoid induced 11/09/22 07/10/23 History
constipatio
simethicone 80 mg chewable tablet 80 mg PO AC Gastrointestinal Issue 11/09/22 07/10/23 History
potassium chloride 20 mEq 20 meq PO BID Electrolyte Repletion 11/10/22 07/10/23 History
tablet,extended
release(part/cryst) (Klor-Con M)
cephalexin 500 mg capsule 500 mg PO QID Cellulitis #7 caps 11/14/22 Rx
sulfamethoxazole 800 1 tab PO BID E coli UTI #1 tab 11/14/22 Rx
mg-trimethoprim 160 mg tablet
metoprolol succinate 50 mg 50 mg PO DAILY hypertension 07/10/23 07/10/23 History
tablet,extended release 24 hr
(Toprol XL)
polyethylene glycol 3350 17 gram 17 g PO BID AT 0800,1600 07/10/23 07/10/23 History
oral powder packet (HealthyLax) Gastrointestinal Issue
Review of Systems
-
Unable to obtain full review of systems at this time due to: Other (Somnolent)
History Source: Other (Medical record)
Physical Exam
Vital Signs
Temp Pulse Resp BP Pulse Ox
101.1 F H 101 16 83/50 96
07/10/23 11:15 07/10/23 11:15 07/10/23 11:15 07/10/23 11:15 07/10/23 11:15
Lab Results
07/10/23 04:09
07/10/23 04:09
Physical Exam
General: Comfortable and Other (Somnolent)
HEENT: Normocephalic
Respiratory: Clear (Anteriorly)
Cardiac: S1/S2 and Regular Rhythm
Breast: N/A
GI: Soft
Rectal: Deferred by Provider
Musculoskeletal: No Clubbing, No Cyanosis and Edema (Trace)
Skin: Warm and Dry
Neuro: Other ( somnolent)
Psych: Other (Somnolent)
Impression / Plan
-
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
bladder status post suprapubic catheter, and obesity presents from [facility] with fever and elevated white count--likely sepsis.�Cardiology was consulted as he went into SVT which appeared to be AVNRT.
PSVT/AVNRT:
-Patient's standing home dose of Toprol-XL 50 mg daily is being held due to sepsis/hypotension.
-Can use adenosine 6 mg, then 12 mg, then 12 mg if needed for recurrence.
Sepsis:
-Patient has a chronic sacral wound as well as a suprapubic catheter; Urology consulted.
-Patient is now being started on Levophed.
-Continue antibiotics and supportive care; management as per primary team/medication reconciliation technician.
Data Reviewed
-
EKG: Tracing Personally Visualized and interpreted (Telemetry: Sinus rhythm/sinus tachycardia, transient AVNRT.)
Medical Tests (Nuc Med, Echo etc): Discussed with Physician (Primary Hospitalist, Digital Forensic Analyst) and Discussed with Nurse
Labs: Labs Reviewed by me, Discussed with Physician (Primary Hospitalist, Digital Forensic Analyst) and Discussed with Nurse
Critical Care Time (in minutes): 45
--- NOTE | 2023-07-10 12:06 | CON.ID ---
Consultation
-
Date/Time Consultation Requested: July 10, 2023 0211
Date/Time Consultation Performed: July 10, 2023 1200
Requesting Provider: Dr. Thomas Lafleur
Performing Provider: Dr. Sue Johnson
Reason for Consultation: Severe sepsis due to thigh cellulitis versus CAUTI versus sacral wound
Chief Complaint / Past History
Chief Complaint
Weakness
History of Present Illness
68-year-old male with diabetes mellitus, paraplegia, bedbound, chronic stage IV sacral decubitus, neurogenic bladder with chronic suprapubic catheter, noted to have rising white count and low-grade fever at senior living. He was therefore sent to
the ER last night. Febrile 101/5. White count was 42.7. Lactic acid 3.6. Patient noted to have redness bilateral thighs. He was placed on vancomycin and Zosyn. The suprapubic catheter was dislodged and replaced. Patient is a poor historian.
He denies fevers or chills. He reported he had abdominal pain. No nausea vomiting. No diarrhea. He is chronically constipated. He noted the rash on his thighs yesterday. Rash mildly itchy. In the ED the sacral decubiti do not look infected.
Past History
Additional Past Medical History:
Diabetes mellitus type 2
Hypothyroidism
Multiple sclerosis
Paraplegia
Chronic stage IV sacral decubitus
Supraventricular tachycardia
Chronic pain syndrome, narcotic dependent, has intrathecal baclofen pump
Neurogenic bladder with chronic suprapubic catheter
History of PE/DVT
Peripheral vascular disease
Chronic constipation
Right femur ORIF
SNF resident
Allergy History:
albumin human [From Avonex] Allergy (Verified 11/09/22 13:28)
FLU-LIKE S/S
interferon beta-1a [From Avonex] Allergy (Verified 11/09/22 13:28)
FLU-LIKE S/S
shellfish derived Allergy (Verified 11/09/22 13:28)
Unknown
Medications Reviewed: Yes
Current Antibiotics:
Vancomycin
Zosyn
Social History
Tobacco: Non-Smoker
Alcohol: None
Drug: None
[facility]
Family History
Family History: Not Pertinent
Review of Systems
Review of Systems
General: Change in Appetite
HEENT: Negative Stiff Neck, Sinus Problems, Headache or Pharyngitis
Cardiovascular: Negative Chest Pain
Respiratory: Negative Dyspnea or Cough
Gasteroenterology: Negative Nausea or Vomiting
Genital / Urological: Negative Flank Pain
Endocrine: Weakness
Neurological: Negative Headache or Dizziness
All systems: All other systems were reviewed and were negative
Vital Signs
Temp Pulse Resp BP Pulse Ox
101.1 F H 101 16 83/50 96
07/10/23 11:15 07/10/23 11:15 07/10/23 11:15 07/10/23 11:15 07/10/23 11:15
Selected Entries
07/10/23
08:36
Temp 102.7 F H
Physical Exam
Physical Exam
Constitutional: Acutely Ill
Eyes: No Conjunctival Hemorrhage and Sclera Anicteric
Cardiovascular: Regular Rate and S1/S2
Pulmonary: Clear
Gastrointestinal: Soft, Non Tender, Non Distended and Normal Bowel Sounds
Genito-Urinary: Other (SPC intact); Negative CVA Tenderness or Clear Urine
Extremities: Edema
Skin: Other (blanchable erythema from bilateral groin thighs extending down to knees and up the flank)
Neurological: Other (Drowsy)
Lab / Diagnostic Study Results
07/10/23 04:09
07/10/23 04:09
Abs Immat Gran (auto) 0.7 10^3/uL (0-0.05) H 07/09/23 22:45
Absolute Neuts (auto) 41.1 10^3/uL (1.4-6.5) H 07/09/23 22:45
Absolute Lymphs (auto) 0.5 10^3/uL (1.2-3.4) L 07/09/23 22:45
Absolute Monos (auto) 0.4 10^3/uL (0.1-0.6) 07/09/23 22:45
Absolute Basos (auto) 0.1 10^3/uL (0-0.2) 07/09/23 22:45
Immature Gran % 1.5 % (0-0.5) H 07/09/23 22:45
Neutrophils % 96.2 % (42.2-75.2) H 07/09/23 22:45
Lymphocytes % 1.1 % (20.5-51.1) L 07/09/23 22:45
Monocytes % 0.9 % (1.7-9.3) L 07/09/23 22:45
Eosinophils % 0.0 % (0-6) 07/09/23 22:45
Basophils % 0.3 % (0-2) 07/09/23 22:45
PT Cancelled 07/10/23 10:47
INR Cancelled 07/10/23 10:47
Lactic Acid 3.4 mmol/L (0.7-2.0) H 07/10/23 08:06
Ur Squamous Epith Cells 11-15 /LPF (Few) 07/09/23 22:45
Microbiology Results
Micro:
07/09/23 22:44 Blood Culture - Pending
Blood/Venous
07/09/23 22:44 Blood Culture - Pending
Blood/Venous
07/10/23 03:08 MRSA Screen - Pending
Nose
07/09/23 23:51 Influenza Types A & B (NICKY) - Final
Nasal Swab Negative for Influenza A & B, NAAT
Negative results must be combined with clinical observations
and patient history.
Nucleic Acid Amplification test (NAAT)performed on the
[employer] platform.
07/09/23 22:45 Urine Culture - Pending
Urine
CXR: Extremely low lung volumes. No findings to suggest pneumonia.
Assessment / Plan
#Severe sepsis/shock, hypotensive, febrile, WBC >38
# Spreading erythema
- ? toxic shock/? strep pyogenes
-blood cx's/Ucx pending
-CXR negtive
- hx of ESBL-E. coli in urine. MRSA colonization.
-Replace Zosyn with meropenem.
-Continue Vancomycin for now.
- Add IV clindamycin as toxin inhibitor.
-Follow closely.
#Diabetes mellitus type 2
Hypothyroidism
Multiple sclerosis
Paraplegia
Chronic stage IV sacral decubitus
Supraventricular tachycardia
Chronic pain syndrome, narcotic dependent, has intrathecal baclofen pump
Neurogenic bladder with chronic suprapubic catheter
History of PE/DVT
Peripheral vascular disease
Chronic constipation
Right femur ORIF
SNF resident
--- NOTE | 2023-07-10 12:20 | CON.INTV ---
Consultation
Consultation Request
Date/Time Consultation Requested: 07-10-23
Date/Time Consultation Performed: 07-10-23
Requesting Provider: Hospitalist
Performing Provider: Dr Ríos
Reason for Consultation: hypotension
Medical History
-
Chief Complaint: hypotension
History of Present Illness:
Mr Ebenezer Adams is a 68/M adm 07-09 from [place] with lower grade temp and leukocytosis.
PMH: bedbound, paraplegia due to MS, sacral decubitus ulcers, hypothyroidism, PE/DVT among other conditions.
At ER, temp 101.5F, tachycardia but normal BP. Suspected R thigh cellulitis, CAUTI (SPC), sacral wound infection, started on vanco/zosyn.
Developed hypotension unresponsive to fluid challenge, started NE 07-10 at low dose
Seen at ICU, in NAD but appears chronically ill. On IVFs and NE, BP slowly improving. Sleepy, arousable, denies dyspnea or cough
Past Medical History
Past Medical History: Other (see A&P for PMH/PSH)
Social History
Tobacco: Non-smoker
Alcohol: None
Living: Care Home
Employment: Disabled
Family History
Family History: Reviewed & Not Pertinent
Allergies / Home Medications
Allergies
Allergy/AdvReac Type Severity Reaction Status Date / Time
albumin human [From Avonex] Allergy FLU-LIKE Verified 11/09/22 13:28
S/S
interferon beta-1a Allergy FLU-LIKE Verified 11/09/22 13:28
[From Avonex] S/S
shellfish derived Allergy Unknown Verified 11/09/22 13:28
Home Medications
Medication Instructions Recorded Confirmed Last Taken Type
acetaminophen 325 mg tablet 650 mg PO Q4HPRN PRN fever>100.4, 07/13/22 07/10/23 07/09/23 20:01 History
mild pain
atorvastatin 20 mg tablet 20 mg PO HS High cholesterol 07/13/22 07/10/23 07/09/23 18:30 History
bisacodyl 10 mg rectal suppository 10 mg UT [id number] PRN if no bm on 07/13/22 07/10/23 Unknown History
3rd day
ezetimibe 10 mg tablet 10 mg PO DAILY High cholesterol 07/13/22 07/10/23 07/09/23 08:30 History
ferrous sulfate 325 mg (65 mg 325 mg PO MOWEFR Supplement 07/13/22 07/10/23 07/08/23 08:30 History
iron) tablet
levothyroxine 150 mcg tablet 150 mcg PO DAILY@0630 Thyroid 07/13/22 07/10/23 07/09/23 06:30 History
magnesium hydroxide 400 mg/5 mL 30 ml PO HS PRN constipation 07/13/22 07/10/23 Unknown History
oral suspension (Milk of Magnesia)
magnesium oxide 400 mg PO BID Electrolyte Repletion 07/13/22 07/10/23 07/09/23 18:30 History
metformin 500 mg tablet 500 mg PO BID@0830,1830 Diabetes 07/13/22 07/10/23 07/09/23 18:30 History
omeprazole 20 mg capsule,delayed 20 mg PO HS Gastrointestinal issue 07/13/22 11/09/22 07/19/22 History
release
rivaroxaban 20 mg tablet (Xarelto) 20 mg PO QPM Blood clot 07/13/22 07/10/23 07/09/23 18:30 History
prevention/tx
sennosides 8.6 mg-docusate sodium 2 tab-cap PO BID Constipation 07/13/22 07/10/23 07/09/23 18:30 History
50 mg tablet (Senokot-S)
Lactobac no.2-Bifidobac no.1-S. 1 cap PO BID Supplement 07/20/22 11/09/22 07/19/22 History
thermo 112.5 billion cell capsule
(Visbiome)
calcium carbonate 600 mg calcium 600 mg PO BID Supplement 09/11/22 07/10/23 07/09/23 18:30 History
(1,500 mg) tablet (Calcium)
ergocalciferol (vitamin D2) 1,250 1,250 mcg PO WE Supplement 09/11/22 07/10/23 Unknown History
mcg (50,000 unit) capsule
pantoprazole 40 mg tablet,delayed 40 mg PO DAILY #0 tabs 09/16/22 11/09/22 Unknown Rx
release
Patient Own Medication Pump intrathecal .CONTINUOUS Pain 11/09/22 Unknown History
melatonin 5 mg tablet 6 mg PO HS Sleep 11/09/22 07/10/23 07/09/23 20:30 History
naloxegol 25 mg tablet (Movantik) 12.5 mg PO DAILY opoid induced 11/09/22 07/10/23 07/09/23 08:30 History
constipatio
simethicone 80 mg chewable tablet 80 mg PO AC Gastrointestinal Issue 11/09/22 07/10/23 07/09/23 16:00 History
potassium chloride 20 mEq 20 meq PO BID Electrolyte Repletion 11/10/22 07/10/23 07/09/23 20:30 History
tablet,extended
release(part/cryst) (Klor-Con M)
cephalexin 500 mg capsule 500 mg PO QID Cellulitis #7 caps 11/14/22 Unknown Rx
sulfamethoxazole 800 1 tab PO BID E coli UTI #1 tab 11/14/22 Unknown Rx
mg-trimethoprim 160 mg tablet
metoprolol succinate 50 mg 50 mg PO DAILY hypertension 07/10/23 07/10/23 07/09/23 08:30 History
tablet,extended release 24 hr
(Toprol XL)
polyethylene glycol 3350 17 gram 17 g PO BID AT 0800,1600 07/10/23 07/10/23 07/09/23 18:30 History
oral powder packet (HealthyLax) Gastrointestinal Issue
Review of Systems
-
Unable to Obtain full review of systems at this time due to: Acuity
Vitals / Labs / Diagnostic Testing
Vital Signs
Temp Pulse Resp BP Pulse Ox
101.1 F H 97 16 90/47 99
07/10/23 11:15 07/10/23 12:00 07/10/23 12:00 07/10/23 12:00 07/10/23 12:00
Lab Data
07/10/23 04:09
07/10/23 04:09
Laboratory Results
07/10/23
10:47
PT Cancelled
INR Cancelled
APTT Cancelled
Microbiology
07/09/23 23:51 Nasal Swab Influenza Types A & B (NICKY) - Final
Negative for Influenza A & B, NAAT
Negative results must be combined with clinical observations
and patient history.
Nucleic Acid Amplification test (NAAT)performed on the
[employer] platform.
Diagnostic Testing:
Physical Exam
-
HEENT: Normocephalic and Moist Mucous Membranes
Cardiovascular: Regular Rhythm, Murmur (n) and Peripheral Edema (JAVED)
Respiratory: Clear and Non-Labored Respirations
GI: Non Distended and Non Tender
Neurology: Other (sleepy, arousable, paraplegia)
Skin: Other (JAVED thigh cellulitis, spreading to R back)
General: Respiratory Distress (n)
Assessment
-
Assessment
Mr Ebenezer Adams is a 68/M adm 07-09 from [place] with lower grade temp and leukocytosis. PMH: bedbound, paraplegia due to MS, sacral decubitus ulcers, hypothyroidism, PE/DVT among other conditions. At ER, temp 101.5F, tachycardia but normal BP.
Suspected R thigh cellulitis, CAUTI (SPC), sacral wound infection, started on vanco/zosyn. Developed hypotension unresponsive to fluid challenge, started NE 07-10
Impression:
Refractory hypotension
Sepsis
Bilateral JAVED/back cellulitis (apparently spreading as ER report indicated R thigh cellulitis only)
Severe leukocytosis
Mild hyponatremia
Lactic acidosis
COVID/flu negative
SVT event 07-10, self resolved
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
JAVED cellulitis/sepsis, adm DH November 2022
MS
Chronic anemia
Chronic back pain with intrathecal baclofen (skeletal muscle relaxant) pump
Neurogenic bladder with SPC
Recent adm for suspected urosepsis: 07-13 to , reported chronic constipation but recent abd distension and loose stools for 3 d prior to that adm, d/c on oral ciprofloxacin
HLD
T2DM
Hypothyroidism
PE/DVT, on rivaroxaban, has IVCF in place
PVD
Chronic sacral decubitus, stage IV
Chronic constipation
SVT
Appendectomy
Non-Smoker
Obesity
NHR
Plan
Refractory hypotension to fluid challenge
Sepsis secondary to bilateral JAVED and spreading cellulitis
Continue IVFs
Hold diuretic trial for now
Continue NE, currently at 4 mcg/min, BP 96/51 (64), titrate to keep MAP>=65
Follow LA
Empiric atbs adjusted to vancomycin/meropenem
Follow blood and Ucx, pending
MRSA screening pending
Resp oconnor comfortable on O2 2L, POx 97%
Asp precs
Chronic anemia, hemoglobin is stable, no evidence for bleeding
Continue chronic AC, rivaroxaban (h/o PE/DVT)
H/o SVT/AVRNT
SVT event earlier this morning, transient, self limited
Holding BB
If recurs will use adenosine protocol
Full code
Critical care time: 35 min
Diagnostic tests:
CXR 07-10-23 c/w November 2022, no pulm infiltrates
[2023-07-10 13:26] LABS: Lactic Acid 2.2 mmol/L (0.7-2.0)
[2023-07-10 13:27] LABS: INR 2.45; PT 26.5 Sec (11.4-14.6)
[2023-07-10 13:28] LABS: APTT 49.9 Sec (23.4-35.0)
[2023-07-10] MEDS: MERREM 500 MG IV ×2 (14:12→19:31)
[2023-07-10] MEDS: CLEOCIN 50 IV ×2 (14:12→21:14)
[2023-07-10] MEDS: STERILE WATER FOR INJECTION 10 ML IV ×2 (14:12→19:31)
--- NOTE | 2023-07-10 16:00 | PTCARENOTE ---
No changes in pt assessment at this time. Pt's and daughter updated at bedside. Will continue to monitor.
[2023-07-10] MEDS: XARELTO PO (17:04)
[2023-07-10 17:15] LABS: Lactic Acid 2.4 mmol/L (0.7-2.0)
[2023-07-10] MEDS: VANCOCIN 275 MG IV (17:36)
[2023-07-10 17:39] LABS: Glucose - Point of Care 170 mg/dl (70-99)
[2023-07-10] MEDS: NOVOLOG FLEXPEN-LOW RESISTANCE 1 UNITS SC (18:02)
[2023-07-10] MEDS: MAGNESIUM OXIDE PO (19:30)
[2023-07-10] MEDS: OSCAL CAL 500 PO (19:31)
[2023-07-10] MEDS: OSCAL CAL 500 500 MG PO (19:50)
[2023-07-10] MEDS: MAGNESIUM OXIDE 500 MG PO (19:50)
[2023-07-10] MEDS: TYLENOL ORAL SOLUTION 650 MG PO (19:53)
--- NOTE | 2023-07-10 20:00 | PTCARENOTE ---
Rec'd pt sleeping, easily arousable, answers questions appropriately, able to move arms to command, LE paralyzed, tmp 100.8, tyrlenol 650mg po given, To keep MAP > 65 w/ levophed- presently at 6 casi- see flow sheet for titrations, weak distal
pulses, + LE edema, bilat thighs red, O2 2 liters nc, lungs decr, sat 98, hypo bowel sounds, no bm, abd obese, soft, nontender, no n/v, shavon fluids, supra pubic tube to str drainage draining yellow urine
[2023-07-10] MEDS: LIPITOR 20 MG PO (21:12)
[2023-07-10] MEDS: MELATONIN PO (21:24)
[2023-07-10 21:31] LABS: Glucose - Point of Care 156 mg/dl (70-99)
[2023-07-10 21:37] LABS: Lactic Acid 1.6 mmol/L (0.7-2.0)
[2023-07-11] VITALS (67 sets, daily range): BP systolic 86–163; BP diastolic 52–98; BMI 41.5
--- NOTE | 2023-07-11 | PTCARENOTE ---
sys reviewed, SPT leaking around site, drain sponges applied, CHG bath done, linens changed
[2023-07-11] MEDS: STERILE WATER FOR INJECTION 10 ML IV ×4 (01:53→20:09)
[2023-07-11] MEDS: MERREM 500 MG IV ×4 (01:53→20:09)
--- NOTE | 2023-07-11 04:00 | PTCARENOTE ---
sys reviewed, tlenol 650mg po given for temp, weaning levo as shavon
[2023-07-11] MEDS: TYLENOL ORAL SOLUTION 650 MG PO (04:09)
[2023-07-11 04:49] LABS: Hematocrit 29.4 % (39.0-52.0); Hemoglobin 9.8 g/dL (13.0-18.0); Mean Corp Hgb Conc. 33.3 g/dL (33.0-37.0); Mean Corpuscular Hgb 25.4 pg (27.0-31.0); Mean Corpuscular Volume 76.2 fL (80.0-94.0); Mean Platelet Volume 8.8 fL (7.4-10.4); Platelet Count 340 10^3/uL (130-400); Red Blood Cell Count 3.86 10^6/uL (4.70-6.10); Red Cell Dist. Width 16.5 % (11.5-14.5); White Blood Cell Count 32.3 10^3/uL (4.8-10.8)
[2023-07-11 04:59] LABS: Blood Urea Nitrogen 14 mg/dl (9-20); Calcium 6.8 mg/dl (8.4-10.2); Carbon Dioxide 19 mmol/L (22-30); Chloride 109 mmol/L (98-107); Estimated Creatinine Clearance > 125 ml/min; Glucose 119 mg/dl (70-99); Potassium 3.4 mmol/L (3.5-5.1); Sodium 135 mmol/L (135-145); eGFR > 60.00
[2023-07-11] MEDS: CLEOCIN 50 IV ×3 (05:13→21:43)
[2023-07-11] MEDS: NSS 1000 IV (05:22)
[2023-07-11] MEDS: KCL ELIXIR 40 MEQ PO (05:23)
--- NOTE | 2023-07-11 05:23 | PTCARENOTE ---
40 kcl po given for K-3.4
[2023-07-11] MEDS: CALCIUM GLUCONATE 290 MG IV (05:27)
--- NOTE | 2023-07-11 05:30 | PTCARENOTE ---
4 gm feli gluc hung over 1 hr per order for ca-6.8
[2023-07-11] MEDS: VANCOCIN 275 MG IV ×2 (05:49→17:52)
[2023-07-11] MEDS: SYNTHROID 150 MCG PO (06:05)
[2023-07-11] MEDS: NOVOLOG FLEXPEN-LOW RESISTANCE SC ×3 (07:29→18:08)
[2023-07-11 07:44] LABS: Glucose - Point of Care 129 mg/dl (70-99)
--- NOTE | 2023-07-11 07:47 | W.PN.INTV ---
Today's Communication / Plan
Recommendations
Cultures reviewed
Empiric antibiotics
Infectious disease following
Wean pressors-if able to be weaned off pressors then transfer out of ICU-call pulmonary if respiratory issues arise
Assessment
-
Mr Ebenezer Adams is a 68/M adm 07-09 from [place] with lower grade temp and leukocytosis. PMH: bedbound, paraplegia due to MS, sacral decubitus ulcers, hypothyroidism, PE/DVT among other conditions. At ER, temp 101.5F, tachycardia but normal BP.
Suspected R thigh cellulitis, CAUTI (SPC), sacral wound infection, started on vanco/zosyn. Developed hypotension unresponsive to fluid challenge, started NE 07-10
Refractory hypotension
Sepsis
Bilateral JAVED/back cellulitis (apparently spreading as ER report indicated R thigh cellulitis only)
Severe leukocytosis
Mild hyponatremia
Anemia
Hyperglycemia
Hypokalemia
Hypocalcemia
Lactic acidosis
COVID/flu negative
SVT event 07-10, self resolved
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
JAVED cellulitis/sepsis, adm DH November 2022
MS
Chronic anemia
Chronic back pain with intrathecal baclofen (skeletal muscle relaxant) pump
Neurogenic bladder with SPC
Recent adm for suspected urosepsis: 07-13 to , reported chronic constipation but recent abd distension and loose stools for 3 d prior to that adm, d/c on oral ciprofloxacin
HLD
T2DM
Hypothyroidism
PE/DVT, on rivaroxaban, has IVCF in place
PVD
Chronic sacral decubitus, stage IV
Chronic constipation
SVT
Appendectomy
Non-Smoker
Obesity
NHR
Plan
Critically ill on pressors
Supplemental oxygen as needed
BiPAP if needed
Intubated mechanically ventilated if needed
Aspiration precautions
Nebulizers if needed-currently not bronchospastic
Chest x-ray 07/11/2023-distal tip of right PICC enters proximal left brachiocephalic vein and should be repositioned-reviewed with nursing-they will contact IV team, no convincing focal infiltrate
Obstructive sleep apnea suspected
Intravenous fluids
Follow lactate
Norepinephrine as needed-attempt to wean off
Cultures reviewed
MRSA screen positive
Blood cultures no growth
Urine culture pending
Bilateral lower extremity cellulitis
Empiric antibiotics-clindamycin/vancomycin/meropenem
Infectious disease consultation noted-correspondence reviewed
Follow hemoglobin
Transfuse as needed
Continue chronic anticoagulation for history of DVT/PE
Monitor for recurrent SVT
Adenosine as needed
DVT prophylaxis-on Xarelto
GI prophylaxis-on pantoprazole
Early nutrition
Early mobilization
If able to be weaned off pressors then transfer out of ICU-call pulmonary if respiratory issues arise
Outpatient pulmonary/sleep disorders workup-strongly suspect obstructive sleep apnea
Critical care statement: A total of 40 minutes of critical care time was provided for this patient today. This includes management of unstable vital signs, evaluation of the patient at bedside, reviewing the patient's pertinent medical records
including, radiographs, microbiology, laboratory evaluations, pressor management, and discussion with primary team, consultants, pharmacy, nutrition, physical therapy, case management, charge nurse, critical care nursing, and respiratory therapy.
Diagnostic tests:
CXR 07-10-23 c/w November 2022, no pulm infiltrates
Subjective Dataa
Subjective Data
Date of Service:
Date of Service: July 11, 2023
Chief Complaint: Maxillofacial Pathology Follow Up and Pulmonary Follow Up
Subjective:
Feels better, no complaints of shortness of breath, chest pain, abdominal pain
Review of Systems
General: Other ( Per HPI)
Objective Data
Data Reviewed
Vital Signs / I&O / Oxygen:
Vital Signs
Temp Pulse Resp BP Pulse Ox
100.4 F H 91 14 86/55 95
07/11/23 04:00 07/11/23 06:30 07/11/23 06:30 07/11/23 06:15 07/11/23 06:30
Intake and Output
07/10/23 07/11/23 07/12/23
06:59 06:59 06:59
Intake Total 2690 / 2690 4296.6 / 4296.6
Output Total 500 / 500 1040 / 1040
Balance 2190 / 2190 3256.6 / 3256.6
SaO2 95
Nasal Cannula flow liters per 2
minute
Physical Exam
General: Respiratory Distress (n) and Comfortable
HEENT: Normocephalic, Anicteric, Moist Mucous Membranes and Other (Thick neck)
Cardiovascular: Regular Rhythm
Respiratory: Wheeze (n), Crackles (n), Rhonchi (n), Non-Labored Respirations, Accessory Resp Muscle Use (n) and Stridor (n)
GI: Soft, Non Distended and Non Tender
Neurology: Awake and Alert
Skin: Good Color, Cyanosis (n), Jaundice (n) and Rash (n)
Labs/Micro/Reports
Lab Data
07/11/23 04:19
07/11/23 04:19
Laboratory Results
07/10/23 07/10/23
10:47 13:02
PT Cancelled 26.5 H
INR Cancelled 2.45
APTT Cancelled 49.9 H
Microbiology
07/09/23 22:44 Blood/Venous Blood Culture - Preliminary
No Growth in 24 hours- Final report to follow
07/09/23 22:44 Blood/Venous Blood Culture - Preliminary
No Growth in 24 hours- Final report to follow
07/09/23 23:51 Nasal Swab Influenza Types A & B (NICKY) - Final
Negative for Influenza A & B, NAAT
Negative results must be combined with clinical observations
and patient history.
Nucleic Acid Amplification test (NAAT)performed on the
[employer] platform.
--- NOTE | 2023-07-11 08:30 | PTCARENOTE ---
Received pt @ change of shift. Drowsy, oriented x3, forgetful @ x's. Hx paraplegia; LE paralysis, able to move UE; weakness in UE/hand grasp. SR-ST on monitor w HR in 90-100's. +3 LE edema. Skin warm/red on b/l thighs R>L. SpO2 98% on 2LNC.
Auscultated dim breath sounds posteriorly. Hypoactive BS, abd soft/round/obese. Poor appetite. SPC in place w clear/yellow urine; some leakage around catheter. #20 JENSEN w IVF and levo gtt infusing to keep MAP>65- see flow sheet. Pt. repositioned and
instructed on how to report care concerns. Call niharika w in reach.
[2023-07-11] MEDS: MAGNESIUM OXIDE 500 MG PO ×2 (09:10→20:08)
[2023-07-11] MEDS: ZETIA 10 MG PO (09:11)
[2023-07-11] MEDS: OSCAL CAL 500 500 MG PO ×2 (09:11→20:08)
[2023-07-11] MEDS: FEOSOL 325 MG PO (09:15)
--- NOTE | 2023-07-11 09:31 | W.PN.CD ---
Today's Communication / Plan
-
monitor tele
recommend resumption of bb as bp and recovery allows
I will sign off and will return at your request
Impression / Plan
-
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
bladder status post suprapubic catheter, and obesity presents from [facility] with fever and elevated white count--likely sepsis.�Cardiology was consulted as he went into SVT which appeared to be AVNRT.
PSVT/AVNRT:
-Patient's standing home dose of Toprol-XL 50 mg daily is being held due to sepsis/hypotension.
-remains on levophed for bp support
-Currently in Sinus tachycardia
-Can use adenosine 6 mg, then 12 mg, then 12 mg if needed for recurrence.
Sepsis:
-Patient has a chronic sacral wound as well as a suprapubic catheter; Urology consulted.
-remains on Levophed.
-Continue antibiotics and supportive care; management as per primary team/ticket broker.
Physical Exam
Vital Signs/Labs
Vital Signs
Temp Pulse Resp BP Pulse Ox
100.1 F 91 14 86/55 95
07/11/23 07:20 07/11/23 06:30 07/11/23 06:30 07/11/23 06:15 07/11/23 06:30
07/10/23 07/11/23 07/12/23
06:59 06:59 06:59
Actual Weight 109 kg 113.1 kg
07/11/23 04:19
07/11/23 04:19
PT 26.5 Sec (11.4-14.6) H 07/10/23 13:02
INR 2.45 07/10/23 13:02
APTT 49.9 Sec (23.4-35.0) H 07/10/23 13:02
Physical Exam
Constitutional: No acute distress and Comfortable
Cardiovascular: Rhythm & rate is regular, Systolic murmur absent, Diastolic murmur absent and Pedal edema present (1+ pitting edema)
Respiratory: Respiratory effort normal, Lungs clear to auscul., Wheeze Absent, Crackles Absent, Rhonchi Absent, Labored respirations and Wheeze Present
Neuro/Psych: AO x 3
Data Reviewed
-
Date of Service: July 11, 2023
EKG: Other (tele sinus tachycardia)
--- NOTE | 2023-07-11 11:07 | W.PN.HOSP.TC ---
Today's Communication/Plan
-
continue current abx
transfer OOICU
resume Toprol XL (as per cardio, in pt with PSVT), but start with decreased dose
Assessment / Plan
Assessment / Plan
Assessment/Plan
Severe sepsis likely�due�right thigh cellulitis vs CAUTI - (spreading erythema in bilateral upper thighs, UA consistent with UTI in pt with chronic suprapubic catheter)
Septic Shock
resolved, off pressors
BP currently 147/75
Recent severe sepsis secondary to right leg cellulitis
History of of ESBL-E. coli in urine and MRSA colonization
Recent Urinary Tract Infection
Leukocytosis
- Septic bolus IV NS
- Levophed has been stopped
- Continue Vancomycin and Meropenem
- IV Clindamycin as per ID in case toxins involved in infection
- Follow-up cultures
- Supportive care
- ID consulted, recommendations appreciated
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
SVT into the 180s with hypotension (SBP in the 70s) - very short-lived on July 10, 2023 AM
resolved, no further episodes, cardio recommends resumption of beta tianna as pressure allows
-July 10, 2023 episode of hypotension and SVT resolved spontaneously, additonal fluid bolus ordered
-Hold home Toprol due to hypotension
-If recurs, can use Adenosine protocol
-Consulted Cardiology, recommendations appreciated
Iron deficiency anemia
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
-� wound care consult
Multiple sclerosis and paraplegia
Neurogenic bladder with chronic suprapubic catheter
Chronic pain syndrome/chronic opiate dependence
- on morphine and baclofen pain pump.
DMT2
�-hold metformin
- add Low SSI
Class II Obesity due to excess calories
Hyperlipidemia
- cont.� Statin, Zetia
HX DVT/IVC filter
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
Hypothyroidism
- cont. CRIME PREVENTION POLICE OFFICER Synthroid.
DVT Px: on chronic Xarelto
Code: Full
Will transfer to tele
Anticipated Discharge: > 48 hours
Subjective/Interval History
-
Date of Service: July 11, 2023
Sitting in chair, states stomach is upset
Objective Data
-
Labs:
Laboratory Results
07/11/23
04:19
WBC 32.3 H
Hgb 9.8 L
Hct 29.4 L
Plt Count 340
Sodium 135
Potassium 3.4 L
Chloride 109 H
Carbon Dioxide 19 L
BUN 14
Creatinine 0.4 L
Glucose 119 H
Calcium 6.8 L* D
Vital Signs:
Vital Signs
Temp Pulse Resp BP Pulse Ox
100.1 F 118 21 147/75 96
07/11/23 07:20 07/11/23 10:03 07/11/23 10:03 07/11/23 10:03 07/11/23 10:08
I&O
07/10/23 07/11/23 07/12/23
06:59 06:59 06:59
Intake Total 2690 / 2690 4296.6 / 4384.1 342.5 / 342.5
Output Total 500 / 500 1040 / 1040 60 / 60
Balance 2190 / 2190 3256.6 / 3344.1 282.5 / 282.5
Review of Systems
-
History Source: Patient and Coordinated Provider
Constitutional: Reports Fever (peak past 24 hrs 101.8)
Respiratory: Reports No Symptoms; Denies Cough
Cardiac: Reports No Symptoms; Denies Chest Pain
Abdomen/GI: Reports Nausea ('upset'); Denies Vomiting or Diarrhea
Physical Exam
-
General: No Apparent Distress
HEENT: Oxygen
Respiratory: Clear to Auscultation
Cardiac: Regular Rhythm and S1/S2
GI: Soft, Nontender, Nondistended and Other (Pain pump in the abdominal wall palpable)
Genito-urinary: Supra Pubic Tube (No erythema or drainage around the suprapubic catheter stoma site)
Musculoskeletal: Edema, Right Lower Extrem (2+edema) and Edema, Left Lower Extrem (2+edema)
Skin: Rash (Right thigh and R leg erythema improved, Rt>Lt)
Neuro: AO x 3
Psych: Calm
--- NOTE | 2023-07-11 11:21 | PHA.VAN.FU ---
Vancomycin Assessment / Plan
- Assessment
Renal Function: Stable (at baseline)
WBC's are: Trending Down
In the past 24 hrs, patient has been: Febrile (102.7)
Concomitant Antimicrobials: meropenem
- Dosing Plan
Continue: vanc 1250mg q12h
Based on regimen in Jul 2022; vanc 1250 mg q12 provided half life 14 h; levels ordered for tonight and tomorrow morning. Will expect dosing may change based on levels
- Monitoring Plan
Peak Level: 07/11 2099
Trough Level: 07/12 529
- Follow Up
Pharmacy will continue to follow.
Vancomycin Follow UP
- -
Patient Age: 68
Patient Sex: Male
Vancomycin Day #: 2
Indication: Skin And Soft Tissue
Requesting Provider: Dr Lafleur/ Dr Johnson
Height / Weight:
Height 5 ft 5 in
Actual Weight 113.1 kg
IBW in k.5
Adjusted BW in k.5
Pertinent Past Medical History: Paraplegic; Obese; Does not follow population PK
- Vital Signs / Lab Results
Temp Pulse Resp BP Pulse Ox
100.1 F 118 21 147/75 96
07/11/23 07:20 07/11/23 10:03 07/11/23 10:03 07/11/23 10:03 07/11/23 10:08
Lab Results - Hematology
07/09/23 07/10/23 07/11/23
22:45 04:09 04:19
WBC 42.7 H* 38.5 H 32.3 H
Lab Results - Chemistry
07/09/23 07/10/23 07/11/23
22:44 04:09 04:19
BUN 24 H 20 14
Creatinine 0.7 0.6 L 0.4 L
Estimated Creat Clear > 125 > 125 > 125
Albumin Cancelled 3.4 L
07/09/23 07/10/23 07/10/23
22:45 04:09 04:10
Lactic Acid 3.6 H 4.8 H* Cancelled
07/10/23 07/10/23 07/10/23
08:06 13:02 16:49
Lactic Acid 3.4 H 2.2 H 2.4 H
07/10/23
21:10
Lactic Acid 1.6
Microbiology Results
07/10/23 03:08 MRSA Screen - Final
Nose Staph aureus MRSA
07/09/23 22:44 Blood Culture - Preliminary
Blood/Venous No Growth in 24 hours- Final report to follow
07/09/23 22:44 Blood Culture - Preliminary
Blood/Venous No Growth in 24 hours- Final report to follow
07/09/23 23:51 Influenza Types A & B (NICKY) - Final
Nasal Swab Negative for Influenza A & B, NAAT
Negative results must be combined with clinical observations
and patient history.
Nucleic Acid Amplification test (NAAT)performed on the
[employer] platform.
--- NOTE | 2023-07-11 11:44 | W.PN.ID1 ---
Date of Service
Date of Service: July 11, 2023
Today's Communication
Ordered AXR
Assessment / Plan
#Severe sepsis, febrile, off pressor
# Cellulitis - spreading erythema bilateral thighs
# chronic suprapubic catheter
-blood cx's negative to date
-CXR negtive
- hx of ESBL-E. coli in urine. MRSA colonization.
-Continue Vancomycin, meropenem, short course clindamycin for now.
-Ordered AXR for abdominal pain. ?constipation
-Follow closely.
# SVT
#Additional Medical History
Diabetes mellitus type 2
Hypothyroidism
Multiple sclerosis
Paraplegia
Chronic stage IV sacral decubitus
Supraventricular tachycardia
Chronic pain syndrome, narcotic dependent, has intrathecal baclofen pump
Neurogenic bladder with chronic suprapubic catheter
History of PE/DVT
Peripheral vascular disease
Chronic constipation
Right femur ORIF
SNF resident
Chief Complaint
-: Fever, Clinical Sepsis and Cellulitis
Subjective / Review of Systems
Still doesn't feel well. c/o mid abd pain. Rash persists.
Vital Signs / Physical Exam
Vital Signs
Vital Signs
Temp Pulse Resp BP Pulse Ox
100.1 F 118 21 147/75 96
07/11/23 07:20 07/11/23 10:03 07/11/23 10:03 07/11/23 10:03 07/11/23 10:08
Selected Entries
07/10/23
15:05
Temp 101.8 F H
Physical Exam
Constitutional: No Acute Distress
Cardiovascular: Other (tachycardic)
Pulmonary: Clear
Gastrointestinal: Soft, Non Tender, Non Distended and Normal Bowel Sounds
Genito-Urinary: Negative CVA Tenderness
Extremities: Edema
Skin: Other (Blanchable red erythema right flank groin/thigh; pink erythema left groin extending to below knee)
Neurological: Awake and Alert
Lines: PICC
Objective Data
Lab Data
Lab Results
07/11/23 04:19
07/11/23 04:19
PT 26.5 Sec (11.4-14.6) H 07/10/23 13:02
INR 2.45 07/10/23 13:02
APTT 49.9 Sec (23.4-35.0) H 07/10/23 13:02
Estimated Creat Clear > 125 ml/min 07/11/23 04:19
Lactic Acid 1.6 mmol/L (0.7-2.0) 07/10/23 21:10
Total Bilirubin 0.8 mg/dl (0.2-1.3) 07/10/23 04:09
AST 26 U/L (17-59) 07/10/23 04:09
ALT 18 U/L (0-50) 07/10/23 04:09
Alkaline Phosphatase 133 U/L (38-126) H 07/10/23 04:09
Most recent labs reviewed.
Micro Results:
07/10/23 03:08 MRSA Screen - Final
Nose Staph aureus MRSA
07/09/23 22:44 Blood Culture - Preliminary
Blood/Venous No Growth in 24 hours- Final report to follow
07/09/23 22:44 Blood Culture - Preliminary
Blood/Venous No Growth in 24 hours- Final report to follow
07/09/23 23:51 Influenza Types A & B (NICKY) - Final
Nasal Swab Negative for Influenza A & B, NAAT
Negative results must be combined with clinical observations
and patient history.
Nucleic Acid Amplification test (NAAT)performed on the
[email or web address] platform.
07/09/23 22:45 Urine Culture - Pending
Urine
CXR: Extremely low lung volumes. No findings to suggest pneumonia.
Care Review
Plan reviewed with: Nurse (ICU nurse)
--- NOTE | 2023-07-11 11:53 | PTCARENOTE ---
Pt. wheelchair bound/lift @ baseline. Lifted from bed to chair for breakfast. Tolerating chair position. Minimal intake for breakfast. Weaned to RA, SpO3 96% no s/s of resp distress. Levo gtt weaned to off-see flow sheet, current BP 146/96 (MAP
110.) R DL PICC placed by VAT, repositioned, CXR taken, awaiting results for use of line. Urology, Dr. Campos, aware of leaking SPC. ID, Dr. Johnson, aware of LE (thigh) redness. Dr Shepherd to bedside, updated on pt.'s current status. Call bundy
remains w in reach.
[2023-07-11] MEDS: TOPROL XL 25 MG PO (13:56)
[2023-07-11] MEDS: 0.45% NACL with KCL 20 MEQ 1000 IV (13:56)
[2023-07-11] MEDS: MYLICON 80 MG PO ×2 (13:57→16:37)
--- NOTE | 2023-07-11 13:57 | CM ---
CM following with discharge planning.
Discussed in Rounds, reviewed pt's chart, met with pt.
Pt is a 68 year old male, admitted with primary dx of Severe sepsis likely�due�right thigh cellulitis vs CAUTI
Pt reports he has been a assisted care resident at [facility] since 2020, uses a power w/c to get around, requires total care and transported to a w/c by [employer]. Pt stated he has supportive and 2 children and they visit him and [facility] often. pt has
Medicaid 15 days bed hold status.
PCP: Aron Palacios
Pharmacy: [facility].
D/C plan: return back to [facility] for a termination clerk care.
CM will follow with discharge plan updates as hospitalization progresses
[2023-07-11 14:01] LABS: Glucose - Point of Care 105 mg/dl (70-99)
[2023-07-11] MEDS: MIRALAX 17 GRAMS PO (16:37)
--- NOTE | 2023-07-11 16:41 | WOUNDNOTE ---
BACKSIDE, TURNED TO L SIDE
--- NOTE | 2023-07-11 16:42 | WOUNDNOTE ---
R HIP AND THIGH
--- NOTE | 2023-07-11 16:43 | WOUNDNOTE ---
R FLANK AND LOWER BACK
--- NOTE | 2023-07-11 16:46 | WOUNDNOTE ---
WON RN note: Patient admitted with Cellulitis of hips and thighs, septic shock.
See H&P for complete history, lives at [facility].
PMH: MS with baclofen pump, diabetes, h/o pulmonary embolism and on Xarelto, HTN, hyperlipidemia, CAD, constipation, hypothyroidism, suprapubic catheter, urosepsis and chronic sacral and L ischium PI stage 4.
Wound Location and type/assessment: Patient known to service, compared to last seen on 11/10/22, PI wound on Sacrum smaller, unable to see base. L ischium PI has become larger. R ischium and heels are intact. Calazime in use to periwound. With
assistance from RN's Norma and Jazzy turned patient onto sides. Patient for transfer to [place] [id number], placed patient on [facility] air bed for transfer. Patient sat in recliner chair with air cushion for Lunch today via [employer] lift.
Appetite: Fair.
Pressure redistribution devices in place: Air bed 2 assist with turning, wedge in use. Pillow under calves. Air cushion.
Plan: All dressings changed, packed with gauze strips, 2x2 gauze then silicone foam. Adhesive foams to heels to protect. Called [facility] to send Iodoform packing strips to to use for next dressing change tomorrow.Will update nurse Jenniffer on [address]
West. Will confirm orders with Dr. Shepherd. Will update care plan and follow as needed.
--- NOTE | 2023-07-11 17:20 | PTCARENOTE ---
Report given to 4W RN and pt transported on clinical research monitor in bed to rm [id number], bed 01. @ bedside updated on pt. transfer. No further needs from this RN.
[2023-07-11] MEDS: XARELTO 20 MG PO (17:52)
[2023-07-11 17:58] LABS: Glucose - Point of Care 103 mg/dl (70-99)
--- NOTE | 2023-07-11 18:18 | PTCARENOTE ---
Received patient from ICU at 1700 , accompanied by . Awake alert oriented. On air bed. R Picc line dressing clean dry intact. Oriented to room and surroundings. Call bundy in reach.
[2023-07-11] MEDS: LIPITOR 20 MG PO (20:08)
[2023-07-11] MEDS: SENOKOT-S 2 TABLET PO (20:08)
[2023-07-11] MEDS: KCL 20 MEQ PO (20:08)
[2023-07-11] MEDS: VISBIOME 1 CAP PO (20:08)
[2023-07-11] MEDS: MELATONIN 6 MG PO (20:09)
[2023-07-11 21:39] LABS: Glucose - Point of Care 139 mg/dl (70-99)
[2023-07-11 21:51] LABS: Vancomycin Peak 28.1 ug/ml (18-26)
[2023-07-12] MEDS: MERREM 500 MG IV ×4 (02:22→20:57)
[2023-07-12] MEDS: STERILE WATER FOR INJECTION 10 ML IV ×4 (02:22→20:57)
[2023-07-12] MEDS: 0.45% NACL with KCL 20 MEQ 1000 IV ×2 (03:09→16:02)
[2023-07-12 03:15] VITALS: BP 125/58
--- NOTE | 2023-07-12 04:16 | PTCARENOTE ---
Patient stated that his suprapubic cath size was 'usually a 30 but what he has in now is a 10.'.....Upon reviewing pt. chart from dax wong, last documentation regarding suprapubic size was recorded on 03/30/23 and stated that the catheter
size was a #22/10cc. Nursing research kennel supervisor notified and urology cart placed at pt. bedside for AM cath exchange. VSS at this time, will continue to monitor
[2023-07-12] MEDS: CLEOCIN 50 IV ×2 (05:07→13:52)
[2023-07-12 06:00] VITALS: BMI 42.2
[2023-07-12] MEDS: SYNTHROID 150 MCG PO (06:00)
[2023-07-12] MEDS: VANCOCIN 275 MG IV (06:00)
[2023-07-12 06:25] LABS: Vancomycin Trough 18.2 ug/ml (5-20)
[2023-07-12 06:27] LABS: Hematocrit 28.6 % (39.0-52.0); Hemoglobin 9.3 g/dL (13.0-18.0); Mean Corp Hgb Conc. 32.5 g/dL (33.0-37.0); Mean Corpuscular Hgb 25.6 pg (27.0-31.0); Mean Corpuscular Volume 78.8 fL (80.0-94.0); Platelet Count 304 10^3/uL (130-400); Red Blood Cell Count 3.63 10^6/uL (4.70-6.10); Red Cell Dist. Width 16.5 % (11.5-14.5); White Blood Cell Count 21.7 10^3/uL (4.8-10.8)
[2023-07-12 06:35] LABS: Blood Urea Nitrogen 12 mg/dl (9-20); Calcium 7.7 mg/dl (8.4-10.2); Carbon Dioxide 26 mmol/L (22-30); Chloride 104 mmol/L (98-107); Estimated Creatinine Clearance > 125 ml/min; Glucose 116 mg/dl (70-99); Potassium 3.8 mmol/L (3.5-5.1); Sodium 132 mmol/L (135-145); eGFR > 60.00
[2023-07-12 07:00] VITALS: BP 112/65
[2023-07-12 07:35] LABS: Glucose - Point of Care 127 mg/dl (70-99)
[2023-07-12] MEDS: SENOKOT-S 2 TABLET PO ×2 (07:35→20:57)
[2023-07-12] MEDS: PROTONIX 40 MG PO (07:35)
[2023-07-12] MEDS: TOPROL XL 25 MG PO (07:36)
[2023-07-12] MEDS: VISBIOME 1 CAP PO ×2 (07:36→20:58)
[2023-07-12] MEDS: OSCAL CAL 500 500 MG PO ×2 (07:36→20:58)
[2023-07-12] MEDS: KCL 20 MEQ PO ×2 (07:36→20:58)
[2023-07-12] MEDS: MIRALAX 17 GRAMS PO (07:37)
[2023-07-12] MEDS: MAGNESIUM OXIDE 500 MG PO ×2 (07:37→20:58)
[2023-07-12] MEDS: ZETIA 10 MG PO (07:37)
[2023-07-12] MEDS: NOVOLOG FLEXPEN-LOW RESISTANCE SC ×3 (07:38→17:09)
[2023-07-12] MEDS: MYLICON 80 MG PO ×3 (07:40→16:31)
[2023-07-12 07:48] LABS: Nucleated Red Blood Cells % 0 % (-)
[2023-07-12 07:49] LABS: Absolute Neutrophils -Man Diff 21.2 10^3/uL (1.4-6.5); Band Neutrophils 17 % (0-3); Lymphocytes 1 % (20-51); Monocytes 1 % (2-9); Platelets Checked Yes; Segmented Neutrophils 81 % (42-75)
[2023-07-12 07:50] LABS: Anisocytosis 1+; Normal RBC Morphology No; Ovalocytes 1+; Total Cells Counted 100
[2023-07-12 07:52] LABS: Hypochromasia 1+
--- NOTE | 2023-07-12 08:11 | PHA.VAN.FU ---
Vancomycin Assessment / Plan
- Assessment
Renal Function: Stable
WBC's are: Trending Down
Concomitant Antimicrobials: meropenem, clindamycin
- Assessment - Therapeutic Drug Monitoring
Extrapolated Cmax (mcg/mL): 31.1
Peak level was drawn: Appropriately (drawn ~1.95H after end of previous infusion)
Extrapolated Cmin (mcg/mL): 18
Trough Drawn: Appropriately
Levels were drawn: At steady state (levels drawn after 3rd maintenance dose but may be continuing to accumulate)
Calculated AUC (mcg*h/mL): 577
Calculated ke: 0.0519
Calculated half life (H): 13.3
Calculated Vd (L): 83
Calculated Vanc CL (ml/min): 72
Patient does not follow population PK
Has history of prolonged half-life (calculated as 14H 07/28/22) and is similar today
Anticipate patient may be slower to accumulate and levels will further increase
Previously maintained stable random levels of ~12H with 1500mg once daily dosing
- Dosing Plan
Adjust Regimen to: Vanc 1500mg Q24H starting 07/13
- Monitoring Plan
No level(s) ordered at this time: consider levels in next few days
- Follow Up
Pharmacy will continue to follow.
Vancomycin Follow UP
- -
Patient Age: 68
Patient Sex: Male
Vancomycin Day #: 3
Indication: Skin And Soft Tissue
Requesting Provider: Dr Lafleur/ Dr Johnson
Pertinent Antimicrobial Allergies:
no pertinent antibiotic allergies
Height / Weight:
Height 5 ft 5 in
Actual Weight 115.122 kg
IBW in k.5
Adjusted BW in k.5
Pertinent Past Medical History: Paraplegic; Obese; Does not follow population PK
- Vital Signs / Lab Results
Temp Pulse Resp BP Pulse Ox
98.6 F 105 20 125/58 96
07/12/23 03:15 07/12/23 03:15 07/12/23 03:15 07/12/23 03:15 07/12/23 03:15
Lab Results - Hematology
07/09/23 07/10/23 07/11/23
22:45 04:09 04:19
WBC 42.7 H* 38.5 H 32.3 H
Band Neutrophils
07/12/23
05:41
WBC 21.7 H
Band Neutrophils 17 H
Lab Results - Chemistry
07/09/23 07/10/23 07/11/23
22:44 04:09 04:19
BUN 24 H 20 14
Creatinine 0.7 0.6 L 0.4 L
Estimated Creat Clear > 125 > 125 > 125
Albumin Cancelled 3.4 L
07/12/23
05:41
BUN 12
Creatinine 0.6 L
Estimated Creat Clear > 125
Albumin
07/09/23 07/10/23 07/10/23
22:45 04:09 04:10
Lactic Acid 3.6 H 4.8 H* Cancelled
07/10/23 07/10/23 07/10/23
08:06 13:02 16:49
Lactic Acid 3.4 H 2.2 H 2.4 H
07/10/23
21:10
Lactic Acid 1.6
Microbiology Results
07/09/23 22:44 Blood Culture - Preliminary
Blood/Venous No Growth in 48 hours- Final report to follow
07/09/23 22:44 Blood Culture - Preliminary
Blood/Venous No Growth in 48 hours- Final report to follow
07/09/23 22:45 Urine Culture - Preliminary
Urine
07/10/23 03:08 MRSA Screen - Final
Nose Staph aureus MRSA
Therapeutic Drug Monitoring
Vancomycin Peak 28.1 ug/ml (18-26) H 07/11/23 21:19
Vancomycin Trough 18.2 ug/ml (5-20) 07/12/23 05:41
[2023-07-12 11:10] VITALS: BP 135/74
[2023-07-12 12:14] LABS: Glucose - Point of Care 140 mg/dl (70-99)
--- NOTE | 2023-07-12 14:46 | W.PN.ID1 ---
Date of Service
Date of Service: July 12, 2023
Today's Communication
DC clinda.
Continue Vanco/meropenem.
Assessment / Plan
# Severe sepsis improving.
# ?Cellulitis - erythema bilateral thighs
# ? CAUTI, chronic suprapubic catheter changed 07/10.
-Fever resolved.
-Leukocytosis trending down
-blood cx's negative to date
-CXR negative
-Ucx pending
-AXR: moderate stool in colon
- hx of ESBL-E. coli in urine. MRSA colonization.
-Continue Vancomycin, meropenem, s/p clindamycin
# SVT
#Additional Medical History
Diabetes mellitus type 2
Hypothyroidism
Multiple sclerosis
Paraplegia
Chronic stage IV sacral decubitus
Supraventricular tachycardia
Chronic pain syndrome, narcotic dependent, has intrathecal baclofen pump
Neurogenic bladder with chronic suprapubic catheter
History of PE/DVT
Peripheral vascular disease
Chronic constipation
Right femur ORIF
SNF resident
Chief Complaint
-: Fever, Clinical Sepsis and Cellulitis
Subjective / Review of Systems
He reports rash is better.
Vital Signs / Physical Exam
Vital Signs
Vital Signs
Temp Pulse Resp BP Pulse Ox
98.0 F 108 18 135/74 98
07/12/23 11:10 07/12/23 11:10 07/12/23 11:10 07/12/23 11:10 07/12/23 11:10
Physical Exam
Constitutional: No Acute Distress and Comfortable
Cardiovascular: Regular Rate
Pulmonary: Clear
Skin: Other (Erythema on right groin/thigh/flank improving. Left thigh blanchable erythema increased, knee to lower leg mild erythema stable. )
Wound: Other (sacral wounds no surrounding erythema, no drainage.)
Neurological: AO x 3
Objective Data
Lab Data
Lab Results
07/12/23 05:41
07/12/23 05:41
PT 26.5 Sec (11.4-14.6) H 07/10/23 13:02
INR 2.45 07/10/23 13:02
APTT 49.9 Sec (23.4-35.0) H 07/10/23 13:02
Estimated Creat Clear > 125 ml/min 07/12/23 05:41
Lactic Acid 1.6 mmol/L (0.7-2.0) 07/10/23 21:10
Total Bilirubin 0.8 mg/dl (0.2-1.3) 07/10/23 04:09
AST 26 U/L (17-59) 07/10/23 04:09
ALT 18 U/L (0-50) 07/10/23 04:09
Alkaline Phosphatase 133 U/L (38-126) H 07/10/23 04:09
Most recent labs reviewed.
Micro Results:
07/09/23 22:45 Urine Culture - Preliminary
Urine
07/09/23 22:44 Blood Culture - Preliminary
Blood/Venous No Growth in 48 hours- Final report to follow
07/09/23 22:44 Blood Culture - Preliminary
Blood/Venous No Growth in 48 hours- Final report to follow
07/10/23 03:08 MRSA Screen - Final
Nose Staph aureus MRSA
07/09/23 23:51 Influenza Types A & B (NICKY) - Final
Nasal Swab Negative for Influenza A & B, NAAT
Negative results must be combined with clinical observations
and patient history.
Nucleic Acid Amplification test (NAAT)performed on the
[employer] platform.
CXR: Extremely low lung volumes. No findings to suggest pneumonia.
[2023-07-12 15:24] VITALS: BP 143/80
--- NOTE | 2023-07-12 15:48 | W.PN.URO.CBU ---
Today's Communication / Plan
-
obsrve for wetness around sp tube if wt sent d urine for culture and tiger text me one way or another
Assessment / Plan
-
i cnhanged pe request to 30cc balloon s tube will onbserve tfor wetmnes if stil wet will obtain ur cx and treat for spasms
Diagnosis
-
Date of Service: July 12, 2023
-
Patient Diagnosis:
Post Op Day:
Patient Diagnosis:neurogenic bladder retentionleaking arouns =d sp site
Post Op Day:
Subjective
-
still leaking
Objective
-
Vital Signs
Temp Pulse Resp BP Pulse Ox
99.8 F 102 18 143/80 97
07/12/23 15:24 07/12/23 15:24 07/12/23 15:24 07/12/23 15:24 07/12/23 15:24
Intake and Output
07/11/23 07/12/23 07/13/23
06:59 06:59 06:59
Intake Total 4296.6 / 4384.1 1222.5 / 1222.5
Output Total 1040 / 1040 1050 / 1050
Balance 3256.6 / 3344.1 172.5 / 172.5
Intake:
Oral fluids 200 / 200 480 / 480
IV fluids (Total) 2421.6 / 2509.1 742.5 / 742.5
Levo 371.6 / 379.1 22.5 / 22.5
Nss 1,000 ml @ 80 mls/hr IV . 1760 / 1840 720 / 720
[id number] VONDA Rx#:[id number]
calcium gluc 290 / 290
IV piggybacks 1675 / 1675
Output:
Suprapubic output 1040 / 1040 1050 / 1050
Laboratory Results
07/12/23 05:41
07/12/23 05:41
Review of Systems
-
: Difficulty Voiding
Physical Exam
-
General - well developed, well nourished, no acute distress
Chest - clear bilaterally
Abdomen - soft, non-tender, positive bowel sounds, no CVAT, no incisional pain or distention
Genitalia - normal
Rectal - normal
Skin - warm & dry with no rash
Neuro - AOx3, no motor deficits
Extremities - no clubbing, no cyanosis, no edema
Incision - clean, dry
Dressing - clean, dry, intact
Care Review
Data Reviewed
Discussed with: Hospitalist and Nursing
[2023-07-12] MEDS: MIRALAX PO (16:04)
--- NOTE | 2023-07-12 16:50 | W.PN.HOSP.TC ---
Today's Communication/Plan
-
follow WBC, continue IV abx, hopefully transition to oral in 1-2 days
Assessment / Plan
Assessment / Plan
Assessment/Plan
Severe sepsis likely�due�right thigh cellulitis vs CAUTI - (spreading erythema in bilateral upper thighs, UA consistent with UTI in pt with chronic suprapubic catheter)
Septic Shock
resolved, now off pressors
BP currently 147/75
Recent severe sepsis secondary to right leg cellulitis
History of of ESBL-E. coli in urine and MRSA colonization
Recent Urinary Tract Infection
Leukocytosis
Toxic Metabolic Encephalopathy markedly improved
WBC improving 42.7-->38.5-->32.3-->21.7
- Septic bolus IV NS
- Levophed has been stopped
- Continue Vancomycin and Meropenem
- IV Clindamycin stopped as per ID
- ID consulted, recommendations appreciated
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
SVT into the 180s with hypotension (SBP in the 70s) - very short-lived on July 10, 2023 AM
resolved, no further episodes, cardio recommends resumption of beta tianna as pressure allows
BP has been excellent most recently 143/80
-July 10, 2023 episode of hypotension and SVT resolved spontaneously, additional fluid bolus ordered
Iron deficiency anemia
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
-� wound care consult
Multiple sclerosis and paraplegia
Neurogenic bladder with chronic suprapubic catheter
Chronic pain syndrome/chronic opiate dependence
- on morphine and baclofen pain pump.
DMT2
�-hold metformin
- add Low SSI
Class II Obesity due to excess calories
Hyperlipidemia
- cont.� Statin, Zetia
HX DVT/IVC filter
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
Hypothyroidism
- cont. METER INSTALLER AND REMOVER Synthroid.
DVT Px: on chronic Xarelto
Code: Full
Anticipated Discharge: 24 - 48 hours
Subjective/Interval History
-
Date of Service: July 12, 2023
Much more alert and conversant
Objective Data
-
Labs:
Laboratory Results
07/12/23
05:41
WBC 21.7 H
Hgb 9.3 L
Hct 28.6 L
Plt Count 304
Sodium 132 L
Potassium 3.8
Chloride 104
Carbon Dioxide 26
BUN 12
Creatinine 0.6 L
Glucose 116 H
Calcium 7.7 L
Vital Signs:
Vital Signs
Temp Pulse Resp BP Pulse Ox
99.8 F 102 18 143/80 97
07/12/23 15:24 07/12/23 15:24 07/12/23 15:24 07/12/23 15:24 07/12/23 15:24
I&O
07/11/23 07/12/23 07/13/23
06:59 06:59 06:59
Intake Total 4296.6 / 4384.1 1222.5 / 1222.5
Output Total 1040 / 1040 1050 / 1050
Balance 3256.6 / 3344.1 172.5 / 172.5
Review of Systems
-
History Source: Patient and Coordinated Provider
Constitutional: Reports Fever (last nted fever 2/5 at 04:00)
Respiratory: Reports No Symptoms; Denies Cough
Cardiac: Reports No Symptoms; Denies Chest Pain
Abdomen/GI: Reports Nausea ('upset'); Denies Vomiting or Diarrhea
Physical Exam
-
General: No Apparent Distress
HEENT: Oxygen
Respiratory: Clear to Auscultation
Cardiac: Regular Rhythm and S1/S2
GI: Soft, Nontender, Nondistended and Other (Pain pump in the abdominal wall palpable)
Genito-urinary: Supra Pubic Tube (No erythema or drainage around the suprapubic catheter stoma site)
Musculoskeletal: Edema, Right Lower Extrem (2+edema) and Edema, Left Lower Extrem (2+edema)
Skin: Rash (Right thigh and R leg erythema improved, Rt>Lt)
Neuro: AO x 3
Psych: Calm
[2023-07-12 17:06] LABS: Glucose - Point of Care 121 mg/dl (70-99)
[2023-07-12] MEDS: XARELTO 20 MG PO (17:10)
[2023-07-12 19:15] VITALS: BP 135/74
[2023-07-12] MEDS: LIPITOR 20 MG PO (21:10)
[2023-07-12] MEDS: MELATONIN 6 MG PO (21:10)
[2023-07-12 22:14] LABS: Glucose - Point of Care 187 mg/dl (70-99)
[2023-07-12 23:10] VITALS: BP 127/75
[2023-07-13] MEDS: STERILE WATER FOR INJECTION 10 ML IV ×3 (02:51→13:41)
[2023-07-13] MEDS: MERREM 500 MG IV ×3 (02:51→13:40)
[2023-07-13 03:20] VITALS: BP 136/82
[2023-07-13 04:26] LABS: % Basophils 0.3 % (0-2); % Eosinophils 0.5 % (0-6); % Immature Granulocytes 1.5 % (0-0.5); % Monocytes 4.9 % (1.7-9.3); % Neutrophils 85.8 % (42.2-75.2); Absolute Basophils 0.1 10^3/uL (0-0.2); Absolute Eosinophils 0.1 10^3/uL (0-0.7); Absolute Immature Granulocytes 0.3 10^3/uL (0-0.05); Absolute Lymphocytes 1.4 10^3/uL (1.2-3.4); Absolute Neutrophils 17.2 10^3/uL (1.4-6.5); Hematocrit 27.9 % (39.0-52.0); Hemoglobin 9.3 g/dL (13.0-18.0); Mean Corp Hgb Conc. 33.3 g/dL (33.0-37.0); Mean Corpuscular Hgb 25.5 pg (27.0-31.0); Mean Corpuscular Volume 76.4 fL (80.0-94.0); Mean Platelet Volume 8.7 fL (7.4-10.4); Nucleated Red Blood Cells % 0 % (-); Platelet Count 266 10^3/uL (130-400); Red Blood Cell Count 3.65 10^6/uL (4.70-6.10); Red Cell Dist. Width 16.7 % (11.5-14.5)
[2023-07-13 04:55] LABS: Blood Urea Nitrogen 11 mg/dl (9-20); Calcium 7.6 mg/dl (8.4-10.2); Carbon Dioxide 23 mmol/L (22-30); Chloride 104 mmol/L (98-107); Estimated Creatinine Clearance > 125 ml/min; Glucose 128 mg/dl (70-99); Sodium 133 mmol/L (135-145); eGFR > 60.00
[2023-07-13] MEDS: VANCOCIN 300 MG IV (05:36)
[2023-07-13] MEDS: VANCOCIN 300 ML IV (05:36)
[2023-07-13] MEDS: SYNTHROID 150 MCG PO (05:37)
[2023-07-13 06:00] VITALS: BMI 43.4
[2023-07-13 07:46] LABS: Glucose - Point of Care 130 mg/dl (70-99)
[2023-07-13 08:03] VITALS: BP 120/66
[2023-07-13] MEDS: MIRALAX 17 GRAMS PO (08:13)
[2023-07-13] MEDS: NOVOLOG FLEXPEN-LOW RESISTANCE SC ×2 (08:26→17:43)
[2023-07-13] MEDS: MYLICON 80 MG PO ×3 (08:28→17:42)
[2023-07-13] MEDS: KCL 20 MEQ PO ×2 (08:37→20:16)
[2023-07-13] MEDS: MAGNESIUM OXIDE 500 MG PO ×2 (08:38→20:16)
--- NOTE | 2023-07-13 08:43 | PHA.VAN.FU ---
Vancomycin Assessment / Plan
- Assessment
Renal Function: Stable
WBC's are: Trending Down
In the past 24 hrs, patient has been: Afebrile
Concomitant Antimicrobials: meropenem
- Dosing Plan
Continue: Vanc 1500mg Q24H
- Monitoring Plan
No level(s) ordered at this time: consider levels in next few days
- Follow Up
Pharmacy will continue to follow.
Vancomycin Follow UP
- -
Patient Age: 68
Patient Sex: Male
Vancomycin Day #: 4
Indication: Skin And Soft Tissue
Requesting Provider: Dr Lafleur/ Dr Johnson
Pertinent Antimicrobial Allergies:
no pertinent antibiotic allergies
Height / Weight:
Height 5 ft 5 in
Actual Weight 118.388 kg
IBW in k.5
Adjusted BW in k.5
Pertinent Past Medical History: BMI ~43, MS (paraplegia)
- Vital Signs / Lab Results
Temp Pulse Resp BP Pulse Ox
98.7 F 104 17 120/66 94
07/13/23 08:03 07/13/23 08:03 07/13/23 08:03 07/13/23 08:03 07/13/23 08:03
Lab Results - Hematology
07/11/23 07/12/23 07/13/23
04:19 05:41 04:10
WBC 32.3 H 21.7 H 20.0 H
Band Neutrophils 17 H
Lab Results - Chemistry
07/11/23 07/12/23 07/13/23
04:19 05:41 04:10
BUN 14 12 11
Creatinine 0.4 L 0.6 L 0.5 L
Estimated Creat Clear > 125 > 125 > 125
07/10/23 07/10/23 07/10/23
13:02 16:49 21:10
Lactic Acid 2.2 H 2.4 H 1.6
Microbiology Results
07/09/23 22:44 Blood Culture - Preliminary
Blood/Venous No Growth in 72 hours- Final report to follow
07/09/23 22:44 Blood Culture - Preliminary
Blood/Venous No Growth in 72 hours- Final report to follow
07/09/23 22:45 Urine Culture - Preliminary
Urine
07/10/23 03:08 MRSA Screen - Final
Nose Staph aureus MRSA
Therapeutic Drug Monitoring
Vancomycin Peak 28.1 ug/ml (18-26) H 07/11/23 21:19
Vancomycin Trough 18.2 ug/ml (5-20) 07/12/23 05:41
[2023-07-13] MEDS: OSCAL CAL 500 500 MG PO ×2 (08:49→20:16)
[2023-07-13] MEDS: PROTONIX 40 MG PO (08:51)
[2023-07-13] MEDS: TOPROL XL 25 MG PO (08:53)
[2023-07-13] MEDS: SENOKOT-S 2 TABLET PO ×2 (08:53→20:16)
[2023-07-13] MEDS: ZETIA 10 MG PO (08:55)
[2023-07-13] MEDS: VISBIOME 1 CAP PO ×2 (08:55→20:16)
[2023-07-13] MEDS: FEOSOL 325 MG PO (08:59)
[2023-07-13] MEDS: DRISDOL (VITAMIN D2) 50000 UNITS PO (09:56)
--- NOTE | 2023-07-13 10:58 | CM ---
Per MD, possible transfer back to [facility] tomorrow.
IMM reviewed and signed.
[facility]
Report # [id number]
[2023-07-13 11:38] VITALS: BP 136/78
[2023-07-13 11:59] LABS: Glucose - Point of Care 175 mg/dl (70-99)
[2023-07-13] MEDS: NOVOLOG FLEXPEN-LOW RESISTANCE 1 UNITS SC (12:12)
--- NOTE | 2023-07-13 14:43 | W.PN.ID1 ---
Date of Service
Date of Service: July 13, 2023
Today's Communication
See below.
Assessment / Plan
# Severe sepsis - improving.
# Cellulitis - erythema bilateral thighs. LLE cellulitis with progression/worse
# ? CAUTI, chronic suprapubic catheter changed 07/10.
# hx of ESBL-E. coli in urine. MRSA colonization.
-Fever resolved.
-Leukocytosis trending down
-blood cx's negative to date
-CXR negative
-Ucx pending
-AXR: moderate stool in colon
-LLE cellulitis is worse. ? Strep pyogenes.
Add Linezolid 600mg po bid as toxin inhibitor.
Replace meropenem(d4) with Ertapenem for now.
DC IV Vancomycin.
BAUDILIO-Wrap LLE.
Weight is up. May benefit diuresis.
#Additional Medical History
Diabetes mellitus type 2
Hypothyroidism
Multiple sclerosis
Paraplegia
Chronic stage IV sacral decubitus
Supraventricular tachycardia
Chronic pain syndrome, narcotic dependent, has intrathecal baclofen pump
Neurogenic bladder with chronic suprapubic catheter
History of PE/DVT
Peripheral vascular disease
Chronic constipation
Right femur ORIF
SNF resident
Chief Complaint
-: Clinical Sepsis and Cellulitis
Subjective / Review of Systems
Feels OK.
Vital Signs / Physical Exam
Vital Signs
Vital Signs
Temp Pulse Resp BP Pulse Ox
98.3 F 102 18 136/78 95
07/13/23 11:38 07/13/23 11:38 07/13/23 11:38 07/13/23 11:38 07/13/23 11:38
Physical Exam
Constitutional: Comfortable
Cardiovascular: Regular Rate and S3/S4
Pulmonary: Clear
Gastrointestinal: Soft, Distended and Non Distended
Genito-Urinary: Turbid Urine (SPC)
Extremities: Edema (LLE increased edema 3 to 4+) and Erythema (Increased erythema Knee to ankle, + warmth, Left thigh patchy pink erythema stable. Right thigh erythema improving.)
Neurological: AO x 3
Objective Data
Lab Data
Lab Results
07/13/23 04:10
07/13/23 04:10
PT 26.5 Sec (11.4-14.6) H 07/10/23 13:02
INR 2.45 07/10/23 13:02
APTT 49.9 Sec (23.4-35.0) H 07/10/23 13:02
Estimated Creat Clear > 125 ml/min 07/13/23 04:10
Lactic Acid 1.6 mmol/L (0.7-2.0) 07/10/23 21:10
Total Bilirubin 0.8 mg/dl (0.2-1.3) 07/10/23 04:09
AST 26 U/L (17-59) 07/10/23 04:09
ALT 18 U/L (0-50) 07/10/23 04:09
Alkaline Phosphatase 133 U/L (38-126) H 07/10/23 04:09
Most recent labs reviewed.
Micro Results:
07/09/23 22:45 Urine Culture - Final
Urine Gram negative bacilli
Enterococcus species
07/09/23 22:44 Blood Culture - Preliminary
Blood/Venous No Growth in 72 hours- Final report to follow
07/09/23 22:44 Blood Culture - Preliminary
Blood/Venous No Growth in 72 hours- Final report to follow
07/10/23 03:08 MRSA Screen - Final
Nose Staph aureus MRSA
07/09/23 23:51 Influenza Types A & B (NICKY) - Final
Nasal Swab Negative for Influenza A & B, NAAT
Negative results must be combined with clinical observations
and patient history.
Nucleic Acid Amplification test (NAAT)performed on the
[employer] platform.
CXR: Extremely low lung volumes. No findings to suggest pneumonia.
Care Review
Plan reviewed with: Physician (Dr. Shepherd)
[2023-07-13] MEDS: MIRALAX PO (15:51)
[2023-07-13 15:54] VITALS: BP 125/60
--- NOTE | 2023-07-13 15:57 | W.PN.HOSP.TC ---
Today's Communication/Plan
-
venous doppler
start Lasix 40 mg daily
Assessment / Plan
Assessment / Plan
Assessment/Plan
Severe sepsis likely�due�right thigh cellulitis vs CAUTI - (spreading erythema in bilateral upper thighs, UA consistent with UTI in pt with chronic suprapubic catheter)
Septic Shock
resolved, now off pressors
BP currently 147/75
Recent severe sepsis secondary to bilateral leg cellulitis vs CAUTI
History of of ESBL-E. coli in urine and MRSA colonization
Recent Urinary Tract Infection
Leukocytosis
Toxic Metabolic Encephalopathy markedly improved
WBC improving 42.7-->38.5-->32.3-->21.7-->20k
- Septic bolus IV NS completed
- Levophed has been stopped
- Continue Zyvox and Ertapenem
- IV Clindamycin stopped as per ID
- ID consulted, recommendations appreciated
Left Leg edema has worsened in comparison to Rt.
Will order venous doppler to r/o DVT. If neg, then etiology would be fluid overload and will begin diuresis (pending results, will begin oral Lasix)
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
SVT into the 180s with hypotension (SBP in the 70s) - very short-lived on July 10, 2023 AM
resolved, no further episodes, cardio recommends resumption of beta tianna as pressure allows
BP has been excellent most recently 143/80
-July 10, 2023 episode of hypotension and SVT resolved spontaneously, additional fluid bolus ordered
Iron deficiency anemia
Hypokalemia better
3.4-->3.8-->4.0
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
-� wound care consult
Multiple sclerosis and paraplegia
Neurogenic bladder with chronic suprapubic catheter
Chronic pain syndrome/chronic opiate dependence
- on morphine and baclofen pain pump.
DMT2
�-hold metformin
- add Low SSI
Class II Obesity due to excess calories
Hyperlipidemia
- cont.� Statin, Zetia
HX DVT/IVC filter
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
Hypothyroidism
- cont. SOLE LEVELER MACHINE Synthroid.
DVT Px: on chronic Xarelto
Code: Full
Anticipated Discharge: 24 - 48 hours
Subjective/Interval History
-
Date of Service: July 13, 2023
Awake, alert, conversant
Objective Data
-
Labs:
Laboratory Results
07/13/23
04:10
WBC 20.0 H
Hgb 9.3 L
Hct 27.9 L
Plt Count 266
Sodium 133 L
Potassium 4.0
Chloride 104
Carbon Dioxide 23
BUN 11
Creatinine 0.5 L
Glucose 128 H
Calcium 7.6 L
Vital Signs:
Vital Signs
Temp Pulse Resp BP Pulse Ox
98.6 F 100 20 125/60 96
07/13/23 15:54 07/13/23 15:54 07/13/23 15:54 07/13/23 15:54 07/13/23 15:54
I&O
07/12/23 07/13/23 07/14/23
06:59 06:59 06:59
Intake Total 1222.5 / 1222.5 2160 / 2160
Output Total 1050 / 1050 1950 / 1950
Balance 172.5 / 172.5 210 / 210
Review of Systems
-
History Source: Patient and Coordinated Provider
Constitutional: Denies Fever (afebrile >48 hrs)
Respiratory: Reports No Symptoms; Denies Cough
Cardiac: Reports No Symptoms; Denies Chest Pain
Abdomen/GI: Reports Nausea ('upset'); Denies Vomiting or Diarrhea
Physical Exam
-
General: No Apparent Distress
HEENT: Oxygen
Respiratory: Clear to Auscultation
Cardiac: Regular Rhythm and S1/S2
GI: Soft, Nontender, Nondistended and Other (Pain pump in the abdominal wall palpable)
Genito-urinary: Supra Pubic Tube (No erythema or drainage around the suprapubic catheter stoma site)
Musculoskeletal: Edema, Right Lower Extrem (1+edema) and Edema, Left Lower Extrem (3+edema)
Skin: Rash (Right thigh and R leg erythema improved, Rt>Lt)
Neuro: AO x 3
Psych: Calm
[2023-07-13 17:34] LABS: Glucose - Point of Care 123 mg/dl (70-99)
[2023-07-13] MEDS: LASIX 40 MG PO (17:42)
[2023-07-13] MEDS: XARELTO 20 MG PO (17:42)
[2023-07-13] MEDS: INVANZ 60 MG IV (17:42)
[2023-07-13] MEDS: ZYVOX 600 MG PO ×2 (17:42→23:47)
[2023-07-13 20:19] VITALS: BP 121/73
[2023-07-13 21:26] LABS: Glucose - Point of Care 165 mg/dl (70-99)
[2023-07-13] MEDS: MELATONIN 6 MG PO (21:50)
[2023-07-13] MEDS: LIPITOR 20 MG PO (21:50)
[2023-07-13 23:05] VITALS: BP 99/59
[2023-07-14 03:25] VITALS: BP 114/65
[2023-07-14 05:01] LABS: % Basophils 0.4 % (0-2); % Eosinophils 1.3 % (0-6); % Immature Granulocytes 3.2 % (0-0.5); % Lymphocytes 9.4 % (20.5-51.1); % Monocytes 6.3 % (1.7-9.3); % Neutrophils 79.4 % (42.2-75.2); Absolute Basophils 0.1 10^3/uL (0-0.2); Absolute Eosinophils 0.3 10^3/uL (0-0.7); Absolute Immature Granulocytes 0.7 10^3/uL (0-0.05); Absolute Lymphocytes 1.9 10^3/uL (1.2-3.4); Absolute Monocytes 1.3 10^3/uL (0.1-0.6); Absolute Neutrophils 16.3 10^3/uL (1.4-6.5); Hematocrit 26.2 % (39.0-52.0); Hemoglobin 8.9 g/dL (13.0-18.0); Mean Corpuscular Hgb 25.4 pg (27.0-31.0); Mean Corpuscular Volume 74.6 fL (80.0-94.0); Mean Platelet Volume 8.7 fL (7.4-10.4); Nucleated Red Blood Cells % 0 % (-); Platelet Count 237 10^3/uL (130-400); Red Blood Cell Count 3.51 10^6/uL (4.70-6.10); White Blood Cell Count 20.5 10^3/uL (4.8-10.8)
[2023-07-14 05:28] LABS: Blood Urea Nitrogen 14 mg/dl (9-20); Calcium 7.8 mg/dl (8.4-10.2); Carbon Dioxide 29 mmol/L (22-30); Chloride 98 mmol/L (98-107); Estimated Creatinine Clearance > 125 ml/min; Glucose 140 mg/dl (70-99); Potassium 3.4 mmol/L (3.5-5.1); Sodium 135 mmol/L (135-145); eGFR > 60.00
[2023-07-14 06:00] VITALS: BMI 42.4
[2023-07-14] MEDS: SYNTHROID 150 MCG PO (06:12)
[2023-07-14 07:57] VITALS: BP 114/63
[2023-07-14 08:38] LABS: Glucose - Point of Care 140 mg/dl (70-99)
[2023-07-14] MEDS: NOVOLOG FLEXPEN-LOW RESISTANCE SC ×3 (08:47→16:54)
[2023-07-14] MEDS: MYLICON 80 MG PO ×3 (08:49→16:54)
[2023-07-14] MEDS: MIRALAX PO ×2 (08:49→16:54)
[2023-07-14] MEDS: VISBIOME 1 CAP PO ×2 (08:50→21:34)
[2023-07-14] MEDS: OSCAL CAL 500 500 MG PO ×2 (08:50→21:34)
[2023-07-14] MEDS: ZETIA 10 MG PO (08:50)
[2023-07-14] MEDS: LASIX 40 MG PO (08:50)
[2023-07-14] MEDS: MAGNESIUM OXIDE 500 MG PO ×2 (08:50→21:34)
[2023-07-14] MEDS: TOPROL XL 25 MG PO (08:50)
[2023-07-14] MEDS: PROTONIX 40 MG PO (08:50)
[2023-07-14] MEDS: KCL 20 MEQ PO ×2 (08:50→21:34)
[2023-07-14] MEDS: SENOKOT-S 2 TABLET PO ×2 (08:50→21:34)
[2023-07-14] MEDS: ZYVOX 600 MG PO ×2 (08:50→21:34)
--- NOTE | 2023-07-14 09:23 | W.PN.URO.CBU ---
Today's Communication / Plan
-
no gu intervenion
Assessment / Plan
-
sp tube dring and dry
Diagnosis
-
Date of Service: July 14, 2023
-
Patient Diagnosis:
Post Op Day:
Patient Diagnosis:
Post Op Day:
Patient Diagnosis:neurogenic bladder retentionleaking arouns =d sp site
Post Op Day:
Subjective
-
sp site dry since sp tube change
Objective
-
Vital Signs
Temp Pulse Resp BP Pulse Ox
98.5 F 95 18 114/63 94
07/14/23 07:57 07/14/23 07:57 07/14/23 07:57 07/14/23 07:57 07/14/23 07:57
Intake and Output
07/13/23 07/14/23 07/15/23
06:59 06:59 06:59
Intake Total 2160 / 2160 1680 / 1680
Output Total 1949 / 1949 3800 / 3800
Balance 210 / 210 -2120 / -2120
Intake:
Oral fluids 1680 / 1680
IV fluids (Total) 1760 / 1760
IV piggybacks 400 / 400
Output:
Urine, Redd 3800 / 3800
Suprapubic output 1949
Laboratory Results
07/14/23 04:52
07/14/23 04:52
Review of Systems
-
: Difficulty Voiding
Physical Exam
-
General - well developed, well nourished, no acute distress
Chest - clear bilaterally
Abdomen - soft, non-tender, positive bowel sounds, no CVAT, no incisional pain or distention
Genitalia - normal
Rectal - normal
Skin - warm & dry with no rash
Neuro - AOx3, no motor deficits
Extremities - no clubbing, no cyanosis, no edema
Incision - clean, dry
Dressing - clean, dry, intact
Counseling
-
no inteveton bu=y gu
Care Review
Data Reviewed
Discussed with: Nursing
--- NOTE | 2023-07-14 10:37 | W.PN.ID1 ---
Date of Service
Date of Service: July 14, 2023
Today's Communication
Continue Linezolid and Ertapenem for now.
Assessment / Plan
# Severe sepsis - improving.
# Cellulitis - erythema bilateral thighs. LLE cellulitis with progression/worse
# chronic suprapubic catheter, changed 07/13.
# hx of ESBL-E. coli in urine. MRSA colonization.
-Fever resolved.
-Leukocytosis trending down
-blood cx's negative to date
-CXR negative
-Ucx pending
-AXR: moderate stool in colon
-Peripheral vascular US: mild bilateral groin LAD, no acute DVT.
-LLE cellulitis progressed on 07/13/23, ? Strep pyogenes . 07/14/23 LLE cellulitis improved with abx change
Continue Linezolid 600mg po bid (d2) as toxin inhibitor.
Continue Ertapenem (d5 abx)
Continue BAUDILIO-Wrap LLE.
Responding to diuresis.
#Additional Medical History
Diabetes mellitus type 2
Hypothyroidism
Multiple sclerosis
Paraplegia
Chronic stage IV sacral decubitus
Supraventricular tachycardia
Chronic pain syndrome, narcotic dependent, has intrathecal baclofen pump
Neurogenic bladder with chronic suprapubic catheter
History of PE/DVT
Peripheral vascular disease
Chronic constipation
Right femur ORIF
SNF resident
Chief Complaint
-: Clinical Sepsis and Cellulitis
Subjective / Review of Systems
Leg feels better.
Vital Signs / Physical Exam
Vital Signs
Vital Signs
Temp Pulse Resp BP Pulse Ox
98.5 F 95 18 114/63 94
07/14/23 07:57 07/14/23 07:57 07/14/23 07:57 07/14/23 07:57 07/14/23 07:57
Physical Exam
Constitutional: Comfortable and Obese
Cardiovascular: Regular Rate and S1/S2
Pulmonary: Clear
Gastrointestinal: Soft, Non Tender and Non Distended
Genito-Urinary: Clear Urine (SPC) and Other (no scrotal edema)
Extremities: Edema (LLE edema much improved today.) and Erythema (LLE (groin to ankle) erythema decreased today. Right thigh erythema resolving.)
Neurological: AO x 3
Objective Data
Lab Data
Lab Results
07/14/23 04:52
07/14/23 04:52
PT 26.5 Sec (11.4-14.6) H 07/10/23 13:02
INR 2.45 07/10/23 13:02
APTT 49.9 Sec (23.4-35.0) H 07/10/23 13:02
Estimated Creat Clear > 125 ml/min 07/14/23 04:52
Lactic Acid 1.6 mmol/L (0.7-2.0) 07/10/23 21:10
Total Bilirubin 0.8 mg/dl (0.2-1.3) 07/10/23 04:09
AST 26 U/L (17-59) 07/10/23 04:09
ALT 18 U/L (0-50) 07/10/23 04:09
Alkaline Phosphatase 133 U/L (38-126) H 07/10/23 04:09
Most recent labs reviewed.
Micro Results:
07/09/23 22:44 Blood Culture - Preliminary
Blood/Venous No Growth in 4 days- Final report to follow
07/09/23 22:44 Blood Culture - Preliminary
Blood/Venous No Growth in 4 days- Final report to follow
07/09/23 22:45 Urine Culture - Final
Urine Gram negative bacilli
Enterococcus species
07/10/23 03:08 MRSA Screen - Final
Nose Staph aureus MRSA
07/09/23 23:51 Influenza Types A & B (NICKY) - Final
Nasal Swab Negative for Influenza A & B, NAAT
Negative results must be combined with clinical observations
and patient history.
Nucleic Acid Amplification test (NAAT)performed on the
[employer] platform.
CXR: Extremely low lung volumes. No findings to suggest pneumonia.
[2023-07-14 11:45] VITALS: BP 121/66
--- NOTE | 2023-07-14 11:50 | CM ---
Patient seen bedside.
Alert and ansering questions.
Patient is from [facility].
Plan: back to [facility] when stable, ambulance forms on chart.
[facility]
Report # [phone]
[2023-07-14 12:05] LABS: Glucose - Point of Care 142 mg/dl (70-99)
--- NOTE | 2023-07-14 14:45 | W.PN.HOSP.TC ---
Today's Communication/Plan
-
continue Lasix for now
follow WBC
Assessment / Plan
Assessment / Plan
Assessment/Plan
Severe sepsis likely�due�right thigh cellulitis vs CAUTI - (spreading erythema in bilateral upper thighs, UA consistent with UTI in pt with chronic suprapubic catheter)
Septic Shock
resolved, now off pressors
BP currently 121/66
Recent severe sepsis secondary to bilateral leg cellulitis vs CAUTI
History of of ESBL-E. coli in urine and MRSA colonization
Recent Urinary Tract Infection
Leukocytosis
Toxic Metabolic Encephalopathy markedly improved
WBC improving 42.7-->38.5-->32.3-->21.7-->20-->20.5k
- Septic bolus IV NS completed
Pt received a lot of fluid related to sepsis and currently demonstrating signicant edema
- Levophed has been stopped
- Continue Zyvox and Ertapenem
- IV Clindamycin stopped as per ID
- ID consulted, recommendations appreciated
Left Leg edema has worsened in comparison to Rt.
No sonographic evidence for acute lower extremity venous thrombosis.
Mild webbing in the vein of the left thigh suggesting chronic DVT.
Mild bilateral groin lymphadenopathy. New
Tx was Lasix. Wt had climbed up to 118.4 kg, now down to 115.7kg
will continue Lasix
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
SVT into the 180s with hypotension (SBP in the 70s) - very short-lived on July 10, 2023 AM
resolved, no further episodes, cardio recommends resumption of beta tianna as pressure allows
BP has been excellent most recently 143/80
-July 10, 2023 episode of hypotension and SVT resolved spontaneously,
Iron deficiency anemia
Hypokalemia better
3.4-->3.8-->4.0-->3.4
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
-� wound care consult
Multiple sclerosis and paraplegia
Neurogenic bladder with chronic suprapubic catheter
Chronic pain syndrome/chronic opiate dependence
- on morphine and baclofen pain pump.
DMT2
�-hold metformin
- add Low SSI
Class II Obesity due to excess calories
Hyperlipidemia
- cont.� Statin, Zetia
HX DVT/IVC filter
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
Hypothyroidism
- cont. SALES FIN[employer]CIAL ANALYST Synthroid.
reviewed with Dr. Johnson
DVT Px: on chronic Xarelto
Code: Full
Anticipated Discharge: 24 - 48 hours
Subjective/Interval History
-
Date of Service: July 14, 2023
Continues to be more alert and conversant
Objective Data
-
Labs:
Laboratory Results
07/14/23
04:52
WBC 20.5 H
Hgb 8.9 L
Hct 26.2 L
Plt Count 237
Sodium 135
Potassium 3.4 L
Chloride 98
Carbon Dioxide 29
BUN 14
Creatinine 0.6 L
Glucose 140 H
Calcium 7.8 L
Vital Signs:
Vital Signs
Temp Pulse Resp BP Pulse Ox
98 F 94 18 121/66 96
07/14/23 11:45 07/14/23 11:45 07/14/23 11:45 07/14/23 11:45 07/14/23 11:45
I&O
07/13/23 07/14/23 07/15/23
06:59 06:59 06:59
Intake Total 2160 / 2160 1680 / 1680
Output Total 1950 / 1950 3800 / 3800
Balance 210 / 210 -2120 / -0
Review of Systems
-
History Source: Patient and Coordinated Provider
Constitutional: Denies Fever (afebrile >48 hrs)
Respiratory: Reports No Symptoms; Denies Cough
Cardiac: Reports No Symptoms; Denies Chest Pain
Abdomen/GI: Reports Nausea ('upset'); Denies Vomiting or Diarrhea
Physical Exam
-
General: No Apparent Distress
HEENT: Oxygen
Respiratory: Clear to Auscultation
Cardiac: Regular Rhythm and S1/S2
GI: Soft, Nontender, Nondistended and Other (Pain pump in the abdominal wall palpable)
Genito-urinary: Supra Pubic Tube (No erythema or drainage around the suprapubic catheter stoma site)
Musculoskeletal: Edema, Right Lower Extrem (1+edema) and Edema, Left Lower Extrem (2+edema)
Skin: Rash (Right thigh and R leg erythema improved, Rt>Lt)
Neuro: AO x 3
Psych: Calm
[2023-07-14 15:16] VITALS: BP 102/59
[2023-07-14 17:12] LABS: Glucose - Point of Care 120 mg/dl (70-99)
[2023-07-14] MEDS: INVANZ 60 MG IV (17:33)
[2023-07-14] MEDS: XARELTO 20 MG PO (17:33)
[2023-07-14 19:07] VITALS: BP 134/76
[2023-07-14 21:27] LABS: Glucose - Point of Care 165 mg/dl (70-99)
[2023-07-14] MEDS: LIPITOR 20 MG PO (21:33)
[2023-07-14] MEDS: MELATONIN 6 MG PO (21:34)
[2023-07-14 23:47] VITALS: BP 107/61
[2023-07-15 03:40] VITALS: BP 116/66
[2023-07-15] MEDS: SYNTHROID 150 MCG PO (05:41)
[2023-07-15 05:57] VITALS: BMI 41.1
[2023-07-15 08:08] VITALS: BP 94/56
[2023-07-15 08:22] LABS: Glucose - Point of Care 118 mg/dl (70-99)
[2023-07-15] MEDS: NOVOLOG FLEXPEN-LOW RESISTANCE SC (08:28)
[2023-07-15 08:47] LABS: % Basophils 0.7 % (0-2); % Eosinophils 2.2 % (0-6); % Immature Granulocytes 5.7 % (0-0.5); % Lymphocytes 19.2 % (20.5-51.1); % Monocytes 7.4 % (1.7-9.3); % Neutrophils 64.8 % (42.2-75.2); Absolute Basophils 0.1 10^3/uL (0-0.2); Absolute Eosinophils 0.3 10^3/uL (0-0.7); Absolute Immature Granulocytes 0.8 10^3/uL (0-0.05); Absolute Lymphocytes 2.5 10^3/uL (1.2-3.4); Absolute Neutrophils 8.5 10^3/uL (1.4-6.5); Hematocrit 27.2 % (39.0-52.0); Mean Corp Hgb Conc. 33.1 g/dL (33.0-37.0); Mean Corpuscular Hgb 25.1 pg (27.0-31.0); Mean Corpuscular Volume 75.8 fL (80.0-94.0); Mean Platelet Volume 9.2 fL (7.4-10.4); Nucleated Red Blood Cells % 0 % (-); Platelet Count 307 10^3/uL (130-400); Red Blood Cell Count 3.59 10^6/uL (4.70-6.10); Red Cell Dist. Width 17.2 % (11.5-14.5); White Blood Cell Count 13.2 10^3/uL (4.8-10.8)
[2023-07-15 09:09] LABS: ALT (SGPT) 18 U/L (0-50); AST (SGOT) 25 U/L (17-59); Albumin 2.4 g/dl (3.5-5.0); Alkaline Phosphatase 150 U/L (38-126); Blood Urea Nitrogen 12 mg/dl (9-20); Calcium 7.6 mg/dl (8.4-10.2); Carbon Dioxide 33 mmol/L (22-30); Chloride 98 mmol/L (98-107); Estimated Creatinine Clearance > 125 ml/min; Glucose 118 mg/dl (70-99); Magnesium 1.9 mg/dl (1.6-2.3); Potassium 3.8 mmol/L (3.5-5.1); Sodium 134 mmol/L (135-145); Total Bilirubin 0.5 mg/dl (0.2-1.3); Total Protein 5.6 g/dl (6.3-8.2); eGFR > 60.00
--- NOTE | 2023-07-15 09:27 | W.PN.ID1 ---
Date of Service
Date of Service: July 15, 2023
Today's Communication
At time of discharge can transition to doxycycline 100mg po bid and amoxicillin 1g po tid through 07/23/23.
OK for dc from ID standpoint.
Assessment / Plan
# Severe sepsis - resolving
# Cellulitis - erythema bilateral thighs.
# chronic suprapubic catheter, changed 07/13.
# hx of ESBL-E. coli in urine. MRSA colonization.
-Fever resolved.
-Leukocytosis continues to improve
-blood cx's negative to date
-CXR negative
-Ucx pending
-AXR: moderate stool in colon
-Peripheral vascular US: mild bilateral groin LAD, no acute DVT.
-Right thigh cellulitis resolving.
-LLE cellulitis continues to improve.
Continue Linezolid 600mg po bid (d3) as toxin inhibitor.
Continue Ertapenem (d6 abx)
At time of discharge can transition to doxycycline 100mg po bid and amoxicillin 1g po tid through 07/23/23.
Continue BAUDILIO-Wrap LLE.
#Additional Medical History
Diabetes mellitus type 2
Hypothyroidism
Multiple sclerosis
Paraplegia
Chronic stage IV sacral decubitus
Supraventricular tachycardia
Chronic pain syndrome, narcotic dependent, has intrathecal baclofen pump
Neurogenic bladder with chronic suprapubic catheter
History of PE/DVT
Peripheral vascular disease
Chronic constipation
Right femur ORIF
SNF resident
Chief Complaint
-: Clinical Sepsis and Cellulitis
Subjective / Review of Systems
No complaints.
Vital Signs / Physical Exam
Vital Signs
Vital Signs
Temp Pulse Resp BP Pulse Ox
98.2 F 91 18 94/56 92
07/15/23 08:08 07/15/23 08:08 07/15/23 08:08 02/09/24 08:08 07/15/23 08:08
Physical Exam
Constitutional: No Acute Distress and Obese
Extremities: Other (LLE groin to ankle erythema continues to decrease, darker (not as bright), decreased warmth; Right thigh erythema resolving)
Objective Data
Lab Data
Lab Results
07/15/23 08:24
07/15/23 08:24
PT 26.5 Sec (11.4-14.6) H 07/10/23 13:02
INR 2.45 07/10/23 13:02
APTT 49.9 Sec (23.4-35.0) H 07/10/23 13:02
Estimated Creat Clear > 125 ml/min 07/15/23 08:24
Lactic Acid 1.6 mmol/L (0.7-2.0) 07/10/23 21:10
Total Bilirubin 0.5 mg/dl (0.2-1.3) 07/15/23 08:24
AST 25 U/L (17-59) 07/15/23 08:24
ALT 18 U/L (0-50) 07/15/23 08:24
Alkaline Phosphatase 150 U/L (38-126) H 07/15/23 08:24
Most recent labs reviewed.
Micro Results:
07/09/23 22:44 Blood Culture - Final
Blood/Venous No Growth - Final Report
07/09/23 22:44 Blood Culture - Final
Blood/Venous No Growth - Final Report
07/09/23 22:45 Urine Culture - Final
Urine Gram negative bacilli
Enterococcus species
07/10/23 03:08 MRSA Screen - Final
Nose Staph aureus MRSA
07/09/23 23:51 Influenza Types A & B (NICKY) - Final
Nasal Swab Negative for Influenza A & B, NAAT
Negative results must be combined with clinical observations
and patient history.
Nucleic Acid Amplification test (NAAT)performed on the
[employer] platform.
CXR: Extremely low lung volumes. No findings to suggest pneumonia.
Care Review
Plan reviewed with: Physician (Dr. Shepherd)
[2023-07-15] MEDS: PROTONIX 40 MG PO (10:15)
[2023-07-15] MEDS: MAGNESIUM OXIDE 500 MG PO (10:15)
[2023-07-15] MEDS: VISBIOME 1 CAP PO (10:16)
[2023-07-15] MEDS: KCL 20 MEQ PO (10:16)
[2023-07-15] MEDS: ZETIA 10 MG PO (10:17)
[2023-07-15] MEDS: OSCAL CAL 500 500 MG PO (10:17)
[2023-07-15] MEDS: SENOKOT-S 2 TABLET PO (10:18)
[2023-07-15] MEDS: TOPROL XL 25 MG PO (10:18)
[2023-07-15] MEDS: ZYVOX 600 MG PO (10:18)
[2023-07-15] MEDS: LASIX 40 MG PO (10:19)
[2023-07-15] MEDS: MYLICON 80 MG PO ×2 (10:19→15:05)
[2023-07-15] MEDS: MIRALAX 17 GRAMS PO (10:19)
[2023-07-15] MEDS: FEOSOL 325 MG PO (10:32)
[2023-07-15 11:01] VITALS: BP 118/86
[2023-07-15 11:29] LABS: Glucose - Point of Care 162 mg/dl (70-99)
[2023-07-15] MEDS: NOVOLOG FLEXPEN-LOW RESISTANCE 1 UNITS SC ×2 (13:34→17:41)
--- NOTE | 2023-07-15 14:16 | PN.CDI ---
CDI
- -
CDI:
Physician Documentation Request
Admit Date: 07/10/23 01:03
Dear Doctor Cora,
Clinical Indicators:
Patient admitted with sepsis.
07/14 PN, 'Severe sepsis likely�due�right thigh cellulitis vs CAUTI.'
07/14 ID note,' hx of ESBL-E. coli in urine,'
Current IV antibiotics: Linezolid 600mg po bid
Ertapenem 1000mg IV q 24h
Urine culture:
07/09/23 22:45 Urine Culture - Final
Urine Gram negative bacilli
Enterococcus species
Please clarify the following:
CAUTI was present on admission and is now resolved.
CAUTI was present on admission and is still being monitored, evaluated or treated
CAUTI was ruled out
Other
Unable to determine
Use of terms such as suspected, likely, concern for, or probable (associated with a specific diagnosis that is being evaluated, monitored, or treated as if it exists) are acceptable and can be coded in the inpatient setting, when documented at the
time of discharge.
Thank you,
GARY Edwards RN
CDI Specialist
available via tiger text
Please use your independent medical judgment in providing your response.
--- NOTE | 2023-07-15 14:37 | W.PN.HOSP.TC ---
Today's Communication/Plan
-
dc to SNF
Assessment / Plan
Assessment / Plan
Assessment/Plan
Severe sepsis likely�due�right thigh cellulitis vs CAUTI - (spreading erythema in bilateral upper thighs, UA consistent with UTI in pt with chronic suprapubic catheter)
CAUTI was present on admission and is now resolved.
Septic Shock
resolved, now off pressors
BP currently 121/66
Recent severe sepsis secondary to bilateral leg cellulitis vs CAUTI
History of of ESBL-E. coli in urine and MRSA colonization
Recent Urinary Tract Infection
Leukocytosis
Toxic Metabolic Encephalopathy markedly improved
WBC improving 42.7-->38.5-->32.3-->21.7-->20-->20.5-->13.2k
- Septic bolus IV NS completed
Pt received a lot of fluid related to sepsis and currently was demonstrating significant edema, reduced
- Levophed has been stopped
- stopping Zyvox and Ertapenem, To go on Doxycycline and Amoxicillin
- IV Clindamycin stopped as per ID
- ID consulted, recommendations appreciated
Left Leg edema has worsened in comparison to Rt.
No sonographic evidence for acute lower extremity venous thrombosis.
Mild webbing in the vein of the left thigh suggesting chronic DVT.
Mild bilateral groin lymphadenopathy. New
Tx was Lasix. Wt had climbed up to 118.4 kg-->115.7-->112kg
will continue Lasix
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
SVT into the 180s with hypotension (SBP in the 70s) - very short-lived on July 10, 2023 AM
resolved, no further episodes, cardio recommends resumption of beta tianna as pressure allows
BP has been excellent most recently 143/80
As per FRANCES Vieira painpump is managed at [facility]
-July 10, 2023 episode of hypotension and SVT resolved spontaneously,
Iron deficiency anemia
Hypokalemia better
3.4-->3.8-->4.0-->3.4-->3.8
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
-� wound care consult
Multiple sclerosis and paraplegia
Neurogenic bladder with chronic suprapubic catheter
Chronic pain syndrome/chronic opiate dependence
- on morphine and baclofen pain pump.
DMT2
�-resume metformin on dc
Class II Obesity due to excess calories
Hyperlipidemia
- cont.� Statin, Zetia
HX DVT/IVC filter
-on DRIP BOX TENDER Xarelto.
Hypothyroidism
- cont. DRIP BOX TENDER Synthroid.
reviewed with Dr. Johnson
DVT Px: on chronic Xarelto
Code: Full
cleared by ID to be dc, will dc now
see dictated note
More than 30 minutes spent in discharge including
Final examination of the patient
Summarizing hospital stay
Instructions for continuing care to all relevant caregivers
Preparation of discharge records, prescriptions, and referral forms
Total time spent (in minutes): 45
Anticipated Discharge: Today
Subjective/Interval History
-
Date of Service: July 15, 2023
Feels well and is anxiously awaiting dc
Objective Data
-
Labs:
Laboratory Results
07/15/23
08:24
WBC 13.2 H
Hgb 9.0 L
Hct 27.2 L
Plt Count 307 D
Sodium 134 L
Potassium 3.8
Chloride 98
Carbon Dioxide 33 H
BUN 12
Creatinine 0.6 L
Glucose 118 H
Calcium 7.6 L
Total Bilirubin 0.5
AST 25
ALT 18
Alkaline Phosphatase 150 H
Vital Signs:
Vital Signs
Temp Pulse Resp BP Pulse Ox
98.8 F 101 18 118/86 94
07/15/23 11:01 07/15/23 11:01 07/15/23 11:01 07/15/23 11:01 07/15/23 11:01
I&O
07/14/23 07/15/23 07/16/23
06:59 06:59 06:59
Intake Total 1680 / 1680 940 / 940
Output Total 3800 / 3800 2750 / 2750
Balance -2120 / -2120 -1810 / -1810
Review of Systems
-
History Source: Patient and Coordinated Provider
Constitutional: Denies Fever (afebrile >48 hrs)
Respiratory: Reports No Symptoms; Denies Cough
Cardiac: Reports No Symptoms; Denies Chest Pain
Abdomen/GI: Reports Nausea ('upset'); Denies Vomiting or Diarrhea
Physical Exam
-
General: No Apparent Distress
HEENT: Oxygen
Respiratory: Clear to Auscultation
Cardiac: Regular Rhythm and S1/S2
GI: Soft, Nontender, Nondistended and Other (Pain pump in the abdominal wall palpable)
Genito-urinary: Supra Pubic Tube (No erythema or drainage around the suprapubic catheter stoma site)
Musculoskeletal: Edema, Right Lower Extrem (1+edema) and Edema, Left Lower Extrem (1+edema)
Skin: Rash (Right thigh and R leg erythema improved, Rt>Lt, significantly less)
Neuro: AO x 3
Psych: Calm
--- NOTE | 2023-07-15 15:24 | W.DS.TRANS ---
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
-
Discharge Instructions:
Discharge Diagnosis/Procedures Sepsis - CAUTI
Diet Low Cholesterol,No added salt
Activity With assistance
Driving Restrictions No driving
Bathing Restrictions None
Blood Work CBC, BMP, UA with C&S in 10-14 days
Instructions:
Stand-Alone Forms:
Changes to Home Medications: Yes
Discharge Medications:
DC Medications w/original date entered in [employer]
acetaminophen 325 mg tablet 650 mg PO Q4HPRN PRN fever>100.4, mild pain 07/13/22
atorvastatin 20 mg tablet 20 mg PO HS High cholesterol 07/13/22
bisacodyl 10 mg rectal suppository 10 mg OK [id number] PRN if no bm on 3rd day 07/13/22
ezetimibe 10 mg tablet 10 mg PO DAILY High cholesterol 07/13/22
ferrous sulfate 325 mg (65 mg iron) tablet 325 mg PO MOWEFR Supplement 07/13/22
levothyroxine 150 mcg tablet 150 mcg PO DAILY@0630 Thyroid 07/13/22
magnesium hydroxide 400 mg/5 mL oral suspension (Milk of Magnesia) 30 ml PO HS PRN constipation 07/13/22
magnesium oxide 400 mg PO BID Electrolyte Repletion 07/13/22
metformin 500 mg tablet 500 mg PO BID@0830,1830 Diabetes 07/13/22
omeprazole 20 mg capsule,delayed release 20 mg PO HS Gastrointestinal issue 07/13/22
rivaroxaban 20 mg tablet (Xarelto) 20 mg PO QPM Blood clot prevention/tx 07/13/22
sennosides 8.6 mg-docusate sodium 50 mg tablet (Senokot-S) 2 tab-cap PO BID Constipation 07/13/22
Lactobac no.2-Bifidobac no.1-S. thermo 112.5 billion cell capsule (Visbiome) 1 cap PO BID Supplement 07/20/22
calcium carbonate 600 mg calcium (1,500 mg) tablet (Calcium) 600 mg PO BID Supplement 09/11/22
ergocalciferol (vitamin D2) 1,250 mcg (50,000 unit) capsule 1,250 mcg PO WE Supplement 09/11/22
Patient Own Medication Pump intrathecal .CONTINUOUS Pain 11/09/22
melatonin 5 mg tablet 6 mg PO HS Sleep 11/09/22
naloxegol 25 mg tablet (Movantik) 12.5 mg PO DAILY opoid induced constipatio 11/09/22
simethicone 80 mg chewable tablet 80 mg PO AC Gastrointestinal Issue 11/09/22
potassium chloride 20 mEq tablet,extended release(part/cryst) (Klor-Con M) 20 meq PO BID Electrolyte Repletion 11/10/22
metoprolol succinate 50 mg tablet,extended release 24 hr (Toprol XL) 50 mg PO DAILY hypertension 07/10/23
pantoprazole 40 mg tablet,delayed release 40 mg PO DAILY Gastrointestinal Issue 07/10/23
polyethylene glycol 3350 17 gram oral powder packet (HealthyLax) 17 g PO BID AT 0800,1600 Gastrointestinal Issue 07/10/23
amoxicillin 500 mg tablet 1,000 mg PO Q8H #48 tabs 07/15/23
doxycycline monohydrate 100 mg capsule 100 mg PO BID #16 caps 07/15/23
furosemide 40 mg tablet 40 mg PO DAILY #30 tabs 07/15/23
metoprolol succinate 25 mg tablet,extended release 24 hr 25 mg PO DAILY #30 tabs 07/15/23
Home Medication Changes
Amox and Doxy added for 1 week
Lasix added until weight back to bsseline
low dose Toprol added
Pending Results: No
[2023-07-15 16:30] VITALS: BP 97/61
--- NOTE | 2023-07-15 16:56 | CM ---
CM following re: d/c planning
Chart reviewed
Pt is medically stable for d/c
CM called Cristina at [facility] to inform of the same
Previous CM completed transport forms and transport confirmed for 6:30pm
Pt is a LTC patient at the facility, no additional d/c needs to note
PLAN; d/c to [facility]
Report: [phone]
[2023-07-15] MEDS: MYLICON PO (17:40)
[2023-07-15] MEDS: MIRALAX PO (17:40)
[2023-07-15] MEDS: XARELTO 20 MG PO (17:40)
[2023-07-15] MEDS: INVANZ 60 MG IV (17:41)
[2023-07-15 17:42] LABS: Glucose - Point of Care 172 mg/dl (70-99)
--- NOTE | 2023-07-15 19:14 | PTCARENOTE ---
Dressings changed to ischium and sacrum per MD order. BAUDILIO wrap removed from LLE, skin intact. LLE rewrapped.
== END 2023-07-15 19:15 | DRG 698 ==
LOC: 4 WEST ACU 01:03
PROVIDERS: Clinical Nurse Specialist Family Health; Emergency Medicine; Nurse Practitioner Family; ADMITTING PHYSICIAN Internal Medicine; ATTENDING PHYSICIAN Internal Medicine; CONSULT PHYSICIAN Internal Medicine; CONSULT PHYSICIAN Internal Medicine Infectious Disease; CONSULT PHYSICIAN Specialist; EMERGENCY PHYSICIAN Emergency Medicine; OTHER PHYSICIAN Internal Medicine Pulmonary Disease; OTHER PHYSICIAN Specialist
PROC: 0T2BX0Z Change Drainage Device in Bladder, External Approach (ICD-10-PCS; 2023-07-10)
DX: T83.518A Infection and inflammatory reaction due to other urinary catheter, initial encounter (principal); A41.9 Sepsis, unspecified organism; L89.154 Pressure ulcer of sacral region, stage 4; R65.21 Severe sepsis with septic shock; G92.8 Other toxic encephalopathy; L03.115 Cellulitis of right lower limb; Z68.41 Body mass index [BMI] 40.0-44.9, adult; F11.20 Opioid dependence, uncomplicated; G82.20 Paraplegia, unspecified; L03.116 Cellulitis of left lower limb; I47.19 Other supraventricular tachycardia; E87.20 Acidosis, unspecified; G35 Multiple sclerosis; E66.01 Morbid (severe) obesity due to excess calories; Z11.52 Encounter for screening for COVID-19; K59.03 Drug induced constipation; E11.51 Type 2 diabetes mellitus with diabetic peripheral angiopathy without gangrene; G89.4 Chronic pain syndrome; E03.9 Hypothyroidism, unspecified; K59.81 Ogilvie syndrome; E78.5 Hyperlipidemia, unspecified; I25.10 Atherosclerotic heart disease of native coronary artery without angina pectoris; I10 Essential (primary) hypertension; Z74.01 Bed confinement status; Z79.01 Long term (current) use of anticoagulants; Z86.711 Personal history of pulmonary embolism; Z86.718 Personal history of other venous thrombosis and embolism; Y84.6 Urinary catheterization as the cause of abnormal reaction of the patient, or of later complication, without mention of misadventure at the time of the procedure; Z93.59 Other cystostomy status; D50.9 Iron deficiency anemia, unspecified; E87.6 Hypokalemia; N31.9 Neuromuscular dysfunction of bladder, unspecified; L89.320 Pressure ulcer of left buttock, unstageable; E83.51 Hypocalcemia
CPT/HCPCS: 71045; 71046; 74018; 80048; 80053; 80202; 81003; 81015; 82962; 83036; 83605; 83735; 85025; 85027; 85610; 85730; 87040; 87070; 87077; 87086; 87147; 87502; 87811; 93005; 93970; 96365; 96367; 99285; J1335; J3480

== ENCOUNTER → 2023-07-20 09:41 | Outpatient (REF) | payer MEDICARE, SELFPAY ==
[2023-07-20 11:17] LABS: Blood Urea Nitrogen 26 mg/dl (9-20); Calcium 8.5 mg/dl (8.4-10.2); Carbon Dioxide 34 mmol/L (22-30); Chloride 97 mmol/L (98-107); Glucose 113 mg/dl (70-99); Potassium 4.1 mmol/L (3.5-5.1); Sodium 137 mmol/L (135-145); eGFR > 60.00
[2023-07-20 13:50] LABS: Urine Albumin Trace (Neg - Trace); Urine Bilirubin Negative (Negative); Urine Character Clear (Clear); Urine Color Yellow; Urine Glucose Negative (Negative); Urine Ketone Negative (Negative); Urine Leukocyte Negative (Negative); Urine Nitrite Negative (Negative); Urine Occult Blood Trace (Negative); Urine Urobilinogen Negative (Neg - 1+)
[2023-07-20 14:05] LABS: Urine Red Blood Cell 0-2 /HPF (0-2); Urine White Cell 0-2 /HPF (0-5)
[2023-07-20 14:13] LABS: Urine Bacteria Few (Negative)
== END ==
LOC: OLABN 09:41
PROVIDERS: ATTENDING PHYSICIAN Student in an Organized Health Care Education/Training Program
DX: N39.0 Urinary tract infection, site not specified (principal); I10 Essential (primary) hypertension
CPT/HCPCS: 36415; 80048; 81003; 81015; 87086

== ENCOUNTER → 2023-07-27 12:27 | Outpatient (REF) | payer MEDICARE, OTHER, SELFPAY ==
[2023-07-27 13:10] LABS: % Basophils 1.3 % (0-2); % Eosinophils 2.2 % (0-6); % Immature Granulocytes 0.3 % (0-0.5); % Lymphocytes 36.8 % (20.5-51.1); % Monocytes 7.2 % (1.7-9.3); % Neutrophils 52.2 % (42.2-75.2); Absolute Basophils 0.1 10^3/uL (0-0.2); Absolute Eosinophils 0.2 10^3/uL (0-0.7); Absolute Lymphocytes 2.6 10^3/uL (1.2-3.4); Absolute Monocytes 0.5 10^3/uL (0.1-0.6); Absolute Neutrophils 3.6 10^3/uL (1.4-6.5); Hematocrit 29.6 % (39.0-52.0); Hemoglobin 9.2 g/dL (13.0-18.0); Mean Corp Hgb Conc. 31.1 g/dL (33.0-37.0); Mean Corpuscular Hgb 24.9 pg (27.0-31.0); Mean Platelet Volume 10.5 fL (7.4-10.4); Nucleated Red Blood Cells % 0 % (-); Platelet Count 373 10^3/uL (130-400); Red Cell Dist. Width 17.4 % (11.5-14.5); White Blood Cell Count 6.9 10^3/uL (4.8-10.8)
== END ==
LOC: OLABN 12:27
PROVIDERS: ATTENDING PHYSICIAN Student in an Organized Health Care Education/Training Program
DX: N39.0 Urinary tract infection, site not specified (principal)
CPT/HCPCS: 36415; 85025

== ENCOUNTER → 2023-08-27 08:51 | Outpatient (REF) | payer MEDICARE, OTHER, SELFPAY ==
[2023-08-27 09:29] LABS: % Basophils 1.3 % (0-2); % Eosinophils 3.2 % (0-6); % Immature Granulocytes 0.1 % (0-0.5); % Monocytes 8.3 % (1.7-9.3); % Neutrophils 59.1 % (42.2-75.2); Absolute Basophils 0.1 10^3/uL (0-0.2); Absolute Eosinophils 0.2 10^3/uL (0-0.7); Absolute Lymphocytes 2.1 10^3/uL (1.2-3.4); Absolute Monocytes 0.6 10^3/uL (0.1-0.6); Absolute Neutrophils 4.5 10^3/uL (1.4-6.5); Hematocrit 33.2 % (39.0-52.0); Hemoglobin 10.6 g/dL (13.0-18.0); Mean Corp Hgb Conc. 31.9 g/dL (33.0-37.0); Mean Corpuscular Hgb 25.3 pg (27.0-31.0); Mean Corpuscular Volume 79.2 fL (80.0-94.0); Mean Platelet Volume 9.9 fL (7.4-10.4); Nucleated Red Blood Cells % 0 % (-); Platelet Count 359 10^3/uL (130-400); Red Blood Cell Count 4.19 10^6/uL (4.70-6.10); Red Cell Dist. Width 17.8 % (11.5-14.5); White Blood Cell Count 7.6 10^3/uL (4.8-10.8)
[2023-08-27 09:35] LABS: Urine Albumin Trace (Neg - Trace); Urine Bilirubin Negative (Negative); Urine Character Clear (Clear); Urine Color Yellow; Urine Glucose Negative (Negative); Urine Ketone Negative (Negative); Urine Leukocyte 1+ (Negative); Urine Nitrite Negative (Negative); Urine Occult Blood 1+ (Negative); Urine Urobilinogen Negative (Neg - 1+)
[2023-08-27 09:37] LABS: ALT (SGPT) 17 U/L (0-50); AST (SGOT) 24 U/L (17-59); Albumin 3.5 g/dl (3.5-5.0); Alkaline Phosphatase 121 U/L (38-126); Blood Urea Nitrogen 29 mg/dl (9-20); Calcium 8.8 mg/dl (8.4-10.2); Carbon Dioxide 32 mmol/L (22-30); Chloride 97 mmol/L (98-107); Glucose 101 mg/dl (70-99); Magnesium 2.2 mg/dl (1.6-2.3); Potassium 4.1 mmol/L (3.5-5.1); Sodium 136 mmol/L (135-145); Total Bilirubin 0.6 mg/dl (0.2-1.3); Total Protein 7.3 g/dl (6.3-8.2); eGFR > 60.00
[2023-08-27 10:13] LABS: Urine Amorphous Seen; Urine Squamous Cell 0-2 /LPF (Few); Urine Triple Phosphate Crystal Seen
[2023-08-27 10:14] LABS: Urine Hyaline Cast 0-2 /LPF (0-2)
[2023-08-27 10:15] LABS: Urine Bacteria Many (Negative)
== END ==
LOC: OLABN 08:51
PROVIDERS: ATTENDING PHYSICIAN Student in an Organized Health Care Education/Training Program
DX: N39.0 Urinary tract infection, site not specified (principal); R39.15 Urgency of urination
CPT/HCPCS: 80053; 81003; 81015; 83735; 85025; 87086

== ENCOUNTER → 2023-08-30 01:45 | Outpatient (REF) | payer MEDICARE, OTHER, SELFPAY ==
[2023-08-30 11:52] LABS: Urine Albumin Trace (Neg - Trace); Urine Bilirubin Negative (Negative); Urine Character Very Cloudy (Clear); Urine Color Yellow; Urine Glucose Negative (Negative); Urine Ketone Negative (Negative); Urine Leukocyte 2+ (Negative); Urine Nitrite Positive (Negative); Urine Occult Blood Negative (Negative); Urine Specific Gravity 1.015 (<1.030); Urine Urobilinogen Negative (Neg - 1+)
[2023-08-30 12:10] LABS: Urine Bacteria Many (Negative); Urine Red Blood Cell 0-2 /HPF (0-2); Urine Squamous Cell 0-2 /LPF (Few); Urine Triple Phosphate Crystal Present; Urine White Cell 0-2 /HPF (0-5)
== END ==
LOC: OLABN 01:45
PROVIDERS: ATTENDING PHYSICIAN Student in an Organized Health Care Education/Training Program
DX: R39.15 Urgency of urination (principal)
CPT/HCPCS: 81003; 81015; 87077; 87086; 87186

== ENCOUNTER 2023-09-01 14:36 | Emergency (ER) | payer MEDICARE, OTHER, SELFPAY ==
[2023-09-01 14:39] VITALS: BP 120/69
[2023-09-01 14:45] VITALS: BMI 33.6
[2023-09-01 15:00] VITALS: BP 104/59
[2023-09-01 15:15] LABS: % Eosinophils 3.2 % (0-6); % Immature Granulocytes 0.3 % (0-0.5); % Lymphocytes 19.7 % (20.5-51.1); % Monocytes 6.8 % (1.7-9.3); Absolute Basophils 0.1 10^3/uL (0-0.2); Absolute Eosinophils 0.3 10^3/uL (0-0.7); Absolute Lymphocytes 1.8 10^3/uL (1.2-3.4); Absolute Monocytes 0.6 10^3/uL (0.1-0.6); Absolute Neutrophils 6.3 10^3/uL (1.4-6.5); Hematocrit 35.7 % (39.0-52.0); Hemoglobin 11.3 g/dL (13.0-18.0); Mean Corp Hgb Conc. 31.7 g/dL (33.0-37.0); Mean Platelet Volume 9.5 fL (7.4-10.4); Nucleated Red Blood Cells % 0 % (-); Platelet Count 363 10^3/uL (130-400); Red Blood Cell Count 4.52 10^6/uL (4.70-6.10); Red Cell Dist. Width 17.9 % (11.5-14.5); White Blood Cell Count 9.1 10^3/uL (4.8-10.8)
[2023-09-01 15:28] LABS: ALT (SGPT) 14 U/L (0-50); AST (SGOT) 18 U/L (17-59); Albumin 3.7 g/dl (3.5-5.0); Alkaline Phosphatase 120 U/L (38-126); Blood Urea Nitrogen 24 mg/dl (9-20); Calcium 9.1 mg/dl (8.4-10.2); Carbon Dioxide 31 mmol/L (22-30); Chloride 99 mmol/L (98-107); Estimated Creatinine Clearance 86 ml/min; Glucose 136 mg/dl (70-99); Lipase 76 U/L (23-300); Potassium 4.1 mmol/L (3.5-5.1); Sodium 136 mmol/L (135-145); Total Bilirubin 0.5 mg/dl (0.2-1.3); Total Protein 7.8 g/dl (6.3-8.2); eGFR > 60.00
[2023-09-01 16:00] VITALS: BP 112/69
--- NOTE | 2023-09-01 16:07 | ED.GENMED ---
History of Present Illness
General
Chief Complaint: Abdominal Pain
Source: patient
Exam Limitations: none
Time Seen by Provider: 09/01/23 15:48
Nursing documentation reviewed up to this point in time: agreed with
Travel History
Have you had any contact with someone who has COVID-19?: No
Do you have any symptoms of coronavirus? Fever > 100 degrees, chills, cough, shortness of breath, sore throat, loss of taste or smell, muscle aches, or headache?: No
History of Present Illness
History of Present Illness:
Patient to ED for evalation of generalized abdominal pain. States symptoms started 5 days ago. Reports occasional loose stool No vomiting. Denies fever/chills. Brought to ED via EMS for eval.
Past History
Past History
ED Past Medical History: CAD, Cancer (Skin CA), HTN, Hypercholesterolemia, NIDDM, Hypothyroidism, Other (Multiple sclerosis, PE, PVD, Pressure ulcers, DVT, Sleep apnea, Anemia, ) and Other (prior vasovagal episodes related to constipation issues,
chronic constipation)
ED Past Surgical History: Appendectomy, Orthopedic (Right femur), Tonsilectomy (Adenoids), Urological (Suprapubic catheter) and Other (Baclofen pump insertion. IVC filter)
Social History
Tobacco: Non-smoker
Alcohol: None
Drug: None
Personal:
Living: half-way
Employment: Not employed
Family History
Family History: Other (Reviewed and noncontributory)
Review of Systems
Review of Systems
Allergies reviewed?: Yes
All Other Systems: ROS reviewed and negative except as documented in HPI and ROS
Constitutional: Reports no symptoms
EENT: Reports no symptoms
Respiratory: Reports no symptoms
Cardiac: Reports no symptoms
ABD/GI: Reports abdominal pain (generalized) and other (occasional loose stools)
: Reports no symptoms
Musculoskeletal: Reports no symptoms
Skin: Reports other (chronic pressure ulcer buttocks)
Neurological: Reports no symptoms
Psychiatric: Reports no symptoms
Phy Exam
General Physical Exam
General Presentation: well appearing and no apparent distress
General age: appears stated age
General Skin: dry
General Habitus: normal
General Mental: alert
Cardiovascular Exam
Cardiovascular Exam: regular rate/rhythm
Pulmonary Exam
Pulmonary Exam: lungs clear and no respiratory distress
Gastrointestinal Exam
Gastrointestinal Exam: normal bowel sounds, soft, no organomegaly, non distended and no cva tenderness
External Findings: other (suprapubic cath)
Palpation: generalized: Moderate tenderness
Musculoskeletal Exam
Musculoskeletal Exam: neuro vasc intact and other (Hx MS. Unable to ambulate control lower extemities)
Skin Exam
Skin Exam: normal color, warm/dry and no rash
Psychiatric Exam
Psychiatric Exam: normal mood/affect
Course
Orders/Labs/Results
Orders:
Orders
09/01/23 14:54
Complete Blood Count/With Diff Urgent
Comprehensive Metabolic Panel Urgent
Lipase Urgent
09/01/23 16:05
CT Abd/pel W Iv And Oral Contr Urgent
Comment:
Reason For Exam: generalized abd. pain
Urinalysis Reflex To Culture Urgent
Iohexol [Omnipaque] See Protocol PO NOW STA
09/01/23 16:06
0.9% Sodium Chloride 1000 ml [Nss] 1,000 ml IV BOLUS
Abnormal Lab Results
09/01/23
14:54
RBC 4.52 L 10^6/uL
(4.70-6.10)
Hgb 11.3 L g/dL
(13.0-18.0)
Hct 35.7 L %
(39.0-52.0)
MCV 79.0 L fL
(80.0-94.0)
MCH 25.0 L pg
(27.0-31.0)
MCHC 31.7 L g/dL
(33.0-37.0)
RDW 17.9 H %
(11.5-14.5)
Lymphocytes % 19.7 L %
(20.5-51.1)
Carbon Dioxide 31 H mmol/L
(22-30)
BUN 24 H mg/dl
(9-20)
Glucose 136 H mg/dl
(70-99)
09/01/23 14:54
09/01/23 14:54
Vital Signs
Initial and Last Documented VS:
Initial Vital Signs
Temp Pulse Resp BP Pulse Ox
98.4 F 79 19 120/69 97
09/01/23 14:39 09/01/23 14:39 09/01/23 14:39 09/01/23 14:39 09/01/23 14:39
Last Documented Vital Signs
Temp Pulse Resp BP Pulse Ox
98.4 F 69 20 112/60 97
09/01/23 14:39 09/01/23 18:30 09/01/23 18:30 09/01/23 18:00 09/01/23 18:30
*Radiology
Radiology exam reviewed: radiology read reviewed
*Pulse Oximetry
Patient hypoxic: no
*Critical Care Note
Total Time (30-74mins, 75-104mins- exclusive of procedures): Not Applicable
Update Note
Update Note:
Patient and spouse notified of CT findings. He is discharged back to [facility], will followup with PCP
ED Attending Note
-
Portions of this chart may have been created with voice recognition software.� Occasional wrong word or��sound alike� substitutions may have occurred due to the inherent limitations of voice recognition software.
Discharge Plan
Departure
Patient Disposition: Home (Routine Discharge)
Date of Disposition: 09/01/23
Time of Disposition: 20:42
Patient with high blood pressure during this ER visit?: No
Condition: Good
Covid-19: Not Applicable
Discharge Problem:
Abdominal pain
Instructions: Abdominal Pain
Prescriptions:
No Action
metformin 500 mg Tablet
500 mg PO BID@0830,1830
atorvastatin 20 mg Tablet
20 mg PO HS
sennosides-docusate sodium [Senokot-S] 8.6-50 mg Tablet
2 tab-cap PO BID
magnesium hydroxide [Milk of Magnesia] 400 mg/5 mL Suspension
30 ml PO HS PRN (Reason: constipation)
ferrous sulfate 325 mg (65 mg iron) Tablet
325 mg PO MOWEFR
levothyroxine 150 mcg Tablet
150 mcg PO DAILY@0630
omeprazole 20 mg Capsule,Delayed Release(Dr/Ec)
20 mg PO HS
Xarelto 20 mg Tablet
20 mg PO QPM
magnesium oxide 400 mg magnesium Tablet
400 mg PO BID
acetaminophen 325 MG tablet
650 mg PO Q4HPRN PRN (Reason: fever>100.4, mild pain)
bisacodyl 10 MG suppository
10 mg [place] [id number] PRN (Reason: if no bm on 3rd day)
ezetimibe 10 MG tablet
10 mg PO DAILY
Visbiome 112.5 billion cell Capsule
1 cap PO BID
calcium carbonate [Calcium 600] 600 mg calcium (1,500 mg) Tablet
600 mg PO BID
ergocalciferol (vitamin D2) 1,250 mcg (50,000 unit) Capsule
1,250 mcg PO WE
simethicone 80 mg Tablet,Chewable
80 mg PO AC
melatonin 5 mg Tablet
6 mg PO HS
Movantik 25 mg tablet
12.5 mg PO DAILY
Patient Own Medication Pump
intrathecal .CONTINUOUS
Rx Instructions:
baclofen and morphine
potassium chloride [Klor-Con M20] 20 mEq tablet,ER particles/crystals
20 meq PO BID
metoprolol succinate [Toprol XL] 50 mg tablet extended release 24 hr
50 mg PO DAILY
polyethylene glycol 3350 [HealthyLax] 17 gram powder in packet
17 g PO BID AT 0800,1600
Rx Instructions:
Every other day
pantoprazole 40 mg tablet,delayed release (DR/EC)
40 mg PO DAILY
furosemide 40 mg Tablet
40 mg PO DAILY Qty: 30 0RF
Rx Instructions:
follow wt and change to prn when wt back to prior baseline
metoprolol succinate 25 mg Tablet Extended Release 24 Hr
25 mg PO DAILY Qty: 30 0RF
doxycycline monohydrate 100 mg capsule
100 mg PO BID Qty: 16 0RF
Rx Instructions:
through 07/23
amoxicillin 500 mg tablet
1,000 mg PO Q8H Qty: 48 0RF
Rx Instructions:
through 07/23
Referrals:
Seng Lockett DO [Family Provider] - Follow up in 2-3 days
Interventions
Interventions:
*Risk Screen - Suicide Last Done: 09/01/23 14:39
*General Assessment Last Done: 09/01/23 14:39
*Neglect/Abuse Screening Last Done: 09/01/23 14:39
BP-Mcyteg-Uzesedsvsa Assessment Last Done: 09/01/23 15:38
Discharge Date and Time
Print Language: THAI
[2023-09-01] MEDS: OMNIPAQUE 50 ML PO (16:26)
[2023-09-01] MEDS: NSS 1000 IV (16:27)
[2023-09-01 17:00] VITALS: BP 120/65
[2023-09-01 18:00] VITALS: BP 112/60
== END 2023-09-01 21:50 | disposition home or self-care (01) ==
LOC: EMR 14:36
PROVIDERS: EMERGENCY PHYSICIAN Emergency Medicine; FAMILY PHYSICIAN Family Medicine
DX: R10.84 Generalized abdominal pain (principal); I25.10 Atherosclerotic heart disease of native coronary artery without angina pectoris; I10 Essential (primary) hypertension; E78.00 Pure hypercholesterolemia, unspecified; E11.51 Type 2 diabetes mellitus with diabetic peripheral angiopathy without gangrene; E03.9 Hypothyroidism, unspecified; G35 Multiple sclerosis; G47.30 Sleep apnea, unspecified; Z85.828 Personal history of other malignant neoplasm of skin; Z86.718 Personal history of other venous thrombosis and embolism; Z90.49 Acquired absence of other specified parts of digestive tract
CPT/HCPCS: 99284; 96360; 74177; 80053; 83690; 85025; Q9967

== ENCOUNTER → 2023-09-07 12:50 | Outpatient (REF) | payer MEDICARE, OTHER, SELFPAY | LOC: CLAB 12:50 | PROVIDERS: ATTENDING PHYSICIAN Student in an Organized Health Care Education/Training Program | DX: R19.7 Diarrhea, unspecified (principal) | CPT/HCPCS: 87324; 87449 ==

== ENCOUNTER → 2023-10-26 12:00 | Outpatient (REF) | payer MEDICARE, OTHER, SELFPAY | LOC: DHSLP 12:00 | PROVIDERS: ATTENDING PHYSICIAN Internal Medicine; FAMILY PHYSICIAN Student in an Organized Health Care Education/Training Program | DX: G47.33 Obstructive sleep apnea (adult) (pediatric) (principal); R09.02 Hypoxemia | CPT/HCPCS: 95800 ==

== ENCOUNTER → 2024-01-02 13:17 | Outpatient (REF) | payer MEDICARE, OTHER, SELFPAY ==
[2024-01-02 14:39] LABS: PSA, Total - Screen 0.18 ng/ml (0.0-4.0)
== END ==
LOC: OLABN 13:17
PROVIDERS: ATTENDING PHYSICIAN Student in an Organized Health Care Education/Training Program
DX: Z12.5 Encounter for screening for malignant neoplasm of prostate (principal)
CPT/HCPCS: 36415; G0103

== ENCOUNTER → 2024-02-22 11:25 | Outpatient (REF) | payer MEDICARE, OTHER, SELFPAY ==
[2024-02-22 13:26] LABS: Glycohemoglobin (HgbA1c) 7.4 % (4.0-5.6)
== END ==
LOC: OLABN 11:25
PROVIDERS: ATTENDING PHYSICIAN Student in an Organized Health Care Education/Training Program
DX: Z00.00 Encounter for general adult medical examination without abnormal findings (principal); Z79.84 Long term (current) use of oral hypoglycemic drugs
CPT/HCPCS: 36415; 83036

== ENCOUNTER → 2024-03-05 12:14 | Outpatient (REF) | payer MEDICARE, OTHER, SELFPAY ==
[2024-03-05 13:34] LABS: TSH 3.87 uIU/ml (0.47-4.68)
== END ==
LOC: OLABN 12:14
PROVIDERS: ATTENDING PHYSICIAN Student in an Organized Health Care Education/Training Program
DX: E03.9 Hypothyroidism, unspecified (principal)
CPT/HCPCS: 36415; 84443

== ENCOUNTER → 2024-07-15 12:30 | Outpatient (REF) | payer MEDICARE, OTHER, SELFPAY | LOC: OLAB 12:30 | PROVIDERS: ATTENDING PHYSICIAN Student in an Organized Health Care Education/Training Program | DX: Z48.00 Encounter for change or removal of nonsurgical wound dressing (principal) | CPT/HCPCS: 87070; 87077; 87205 ==

== ENCOUNTER 2024-07-19 11:44 | Emergency (ER) | payer MEDICARE, OTHER, SELFPAY ==
[2024-07-19] VITALS (8 sets, daily range): BP systolic 101–126; BP diastolic 65–79
--- NOTE | 2024-07-19 12:15 | ED.GENMED ---
History of Present Illness
General
Chief Complaint: Abdominal Pain
Source: patient, family and shelter
Exam Limitations: none
Time Seen by Provider: 07/19/24 11:47
Nursing documentation reviewed up to this point in time: agreed with
History of Present Illness
History of Present Illness:
Patient is a 69-year-old male with past medical history of MS PE CAD hypertension from [facility] presents to the ER for abdominal distention vomiting. Patient vomited once yesterday and in the middle of the night. Reports he has not passed
gas today . Lst BM was Tuesday . Pt denies any fever .
Patient was sent here to the ER from shelter for further evaluation. Patient did have an x-ray done today of his abdomen which shows no dilated bowel to suggest ileus or constipation no other concerning symptoms.
Past History
Past History
ED Past Medical History: CAD, Cancer (Skin CA), HTN, Hypercholesterolemia, NIDDM, Hypothyroidism, Other (Multiple sclerosis, PE, PVD, Pressure ulcers, DVT, Sleep apnea, Anemia, ) and Other (prior vasovagal episodes related to constipation issues,
chronic constipation)
ED Past Surgical History: Appendectomy, Orthopedic (Right femur), Tonsilectomy (Adenoids), Urological (Suprapubic catheter) and Other (Baclofen pump insertion. IVC filter)
Social History
Tobacco: Non-smoker
Alcohol: None
Drug: None
Personal:
Living: shelter
Employment: Not employed
Family History
Family History: Other (Reviewed and noncontributory)
Review of Systems
Review of Systems
Allergies reviewed?: Yes
All Other Systems: ROS reviewed and negative except as documented in HPI and ROS
Constitutional: Reports no symptoms
Respiratory: Reports no symptoms; Denies trouble breathing
Cardiac: Reports no symptoms
ABD/GI: Reports other (Abdominal distention decreased gas production); Denies nausea or vomiting
: Reports no symptoms
Musculoskeletal: Reports no symptoms
Skin: Reports no symptoms
Neurological: Reports no symptoms
Psychiatric: Reports no symptoms
Phy Exam
General Physical Exam
General Presentation: no apparent distress
General age: appears stated age
General Skin: warm and dry
General Habitus: normal
General Mental: alert
General Hydration: appears well hydrated
Cardiovascular Exam
Cardiovascular Exam: regular rate/rhythm, no murmur and normal peripheral pulses
Pulmonary Exam
Pulmonary Exam: lungs clear and no respiratory distress
Gastrointestinal Exam
Gastrointestinal Exam: normal bowel sounds, soft and other (non tender )
Neurological Exam
Neurological Exam: alert and oriented x3
Musculoskeletal Exam
Musculoskeletal Exam: full ROM
Skin Exam
Skin Exam: normal color and warm/dry
Psychiatric Exam
Psychiatric Exam: normal mood/affect
Course
Orders/Labs/Results
Orders:
Orders
07/19/24 11:56
Electrocardiogram (*1) Urgent
Reason for Study: Abdominal Pain
EKG- Treatment ONCE
07/19/24 12:14
CMP [Comprehensive Metabolic Panel] Urgent
Complete Blood Count/With Diff Urgent
Lipase Urgent
07/19/24 12:49
CT Abd/Pel (IV only)-DH only Urgent
Comment:
Reason For Exam: abd pain/vomiting
Abnormal Lab Results
07/19/24
12:14
RBC 4.14 L 10^6/uL
(4.70-6.10)
Hgb 10.2 L g/dL
(13.0-18.0)
Hct 33.1 L %
(39.0-52.0)
MCH 24.6 L pg
(27.0-31.0)
MCHC 30.8 L g/dL
(33.0-37.0)
RDW 15.9 H %
(11.5-14.5)
Absolute Neuts (auto) 6.7 H 10^3/uL
(1.4-6.5)
Lymphocytes % 18.6 L %
(20.5-51.1)
BUN 21 H mg/dl
(9-20)
Glucose 181 H mg/dl
(70-99)
AST 14 L U/L
(17-59)
Alkaline Phosphatase 158 H U/L
(38-126)
Albumin 3.1 L g/dl
(3.5-5.0)
07/19/24 12:14
07/19/24 12:14
Vital Signs
Initial and Last Documented VS:
Initial Vital Signs
Pulse Resp Pulse Ox
84 15 91
07/19/24 11:57 07/19/24 11:57 07/19/24 11:57
Last Documented Vital Signs
Temp Pulse Resp BP Pulse Ox
97 F 67 10 103/77 94
07/19/24 12:01 07/19/24 19:15 07/19/24 19:15 07/19/24 19:00 07/19/24 12:01
MDM/Problems Addressed
MDM/Problems Addressed:
Patient was sent for evaluation abdominal pain abdomen soft and nontender on exam questionable distention however no acute distress on exam and patient has been comfortable here in the ER CAT scan done and negative.
Patient has a known sacral decub this is not new and chronic/chronic osteomyelitis
Pt stable for d/c home
*Radiology
Radiology exam reviewed: radiology read reviewed
*Pulse Oximetry
Patient hypoxic: no
*Critical Care Note
Total Time (30-74mins, 75-104mins- exclusive of procedures): Not Applicable
ED Attending Note
-
Portions of this chart may have been created with voice recognition software.� Occasional wrong word or��sound alike� substitutions may have occurred due to the inherent limitations of voice recognition software.
Discharge Plan
Departure
Patient Disposition: Home (Routine Discharge)
Date of Disposition: 07/19/24
Time of Disposition: 15:41
Patient with high blood pressure during this ER visit?: No
Condition: Fair
Covid-19: Not Applicable
Discharge Problem:
Abdominal pain
Instructions: Abdominal Pain
Prescriptions:
No Action
metformin 500 mg Tablet
500 mg PO BID@0830,1830
atorvastatin 20 mg Tablet
20 mg PO HS
sennosides-docusate sodium [Senokot-S] 8.6-50 mg Tablet
2 tab-cap PO BID
magnesium hydroxide [Milk of Magnesia] 400 mg/5 mL Suspension
30 ml PO HS PRN (Reason: constipation)
ferrous sulfate 325 mg (65 mg iron) Tablet
325 mg PO MOWEFR
levothyroxine 150 mcg Tablet
150 mcg PO DAILY@0630
omeprazole 20 mg Capsule,Delayed Release(Dr/Ec)
20 mg PO HS
Xarelto 20 mg Tablet
20 mg PO QPM
magnesium oxide 400 mg magnesium Tablet
400 mg PO BID
acetaminophen 325 MG tablet
650 mg PO Q4HPRN PRN (Reason: fever>100.4, mild pain)
bisacodyl 10 MG suppository
10 mg VT [id number] PRN (Reason: if no bm on 3rd day)
ezetimibe 10 MG tablet
10 mg PO DAILY
Visbiome 112.5 billion cell Capsule
1 cap PO BID
calcium carbonate [Calcium 600] 600 mg calcium (1,500 mg) Tablet
600 mg PO BID
ergocalciferol (vitamin D2) 1,250 mcg (50,000 unit) Capsule
1,250 mcg PO WE
simethicone 80 mg Tablet,Chewable
80 mg PO AC
melatonin 5 mg Tablet
6 mg PO HS
Movantik 25 mg tablet
12.5 mg PO DAILY
Patient Own Medication Pump
intrathecal .CONTINUOUS
Rx Instructions:
baclofen and morphine
potassium chloride [Klor-Con M20] 20 mEq tablet,ER particles/crystals
20 meq PO BID
metoprolol succinate [Toprol XL] 50 mg tablet extended release 24 hr
50 mg PO DAILY
polyethylene glycol 3350 [HealthyLax] 17 gram powder in packet
17 g PO BID AT 0800,1600
Rx Instructions:
Every other day
pantoprazole 40 mg tablet,delayed release (DR/EC)
40 mg PO DAILY
furosemide 40 mg Tablet
40 mg PO DAILY Qty: 30 0RF
Rx Instructions:
follow wt and change to prn when wt back to prior baseline
metoprolol succinate 25 mg Tablet Extended Release 24 Hr
25 mg PO DAILY Qty: 30 0RF
doxycycline monohydrate 100 mg capsule
100 mg PO BID Qty: 16 0RF
Rx Instructions:
through 07/23
amoxicillin 500 mg tablet
1,000 mg PO Q8H Qty: 48 0RF
Rx Instructions:
through 07/23
Referrals:
UNKNOWN - PT DOES,NOT KNOW [Family Provider] -
Activity Restrictions/Additional Instructions:
Ct scan was unremarkable . Labs were unremarkable here in the ED.
patient to follow-up with his family doctor in the next of days return if any worsening of symptoms.
Interventions
Interventions:
*Risk Screen - Suicide Last Done: 07/19/24 11:58
*General Assessment Last Done: 07/19/24 19:49
*Neglect/Abuse Screening Last Done: 07/19/24 11:58
ED- Fall Risk Assessment Last Done: 07/19/24 11:58
*ED COVID-19 Vaccine History Last Done: 07/19/24 11:57
*Nursing Disposition Last Done: 07/19/24 19:49
UL-Bpvamf-Jliwmhlwdw Assessment Last Done: 07/19/24 11:58
Discharge Date and Time
Discharge Date/Time: 07/19/24 19:51
Print Language: FAROESE
[2024-07-19 12:37] LABS: % Basophils 0.7 % (0-2); % Eosinophils 1.4 % (0-6); % Immature Granulocytes 0.3 % (0-0.5); % Lymphocytes 18.6 % (20.5-51.1); % Monocytes 5.4 % (1.7-9.3); % Neutrophils 73.6 % (42.2-75.2); Absolute Basophils 0.1 10^3/uL (0-0.2); Absolute Eosinophils 0.1 10^3/uL (0-0.7); Absolute Lymphocytes 1.7 10^3/uL (1.2-3.4); Absolute Monocytes 0.5 10^3/uL (0.1-0.6); Absolute Neutrophils 6.7 10^3/uL (1.4-6.5); Hematocrit 33.1 % (39.0-52.0); Hemoglobin 10.2 g/dL (13.0-18.0); Mean Corp Hgb Conc. 30.8 g/dL (33.0-37.0); Mean Corpuscular Hgb 24.6 pg (27.0-31.0); Mean Platelet Volume 8.9 fL (7.4-10.4); Nucleated Red Blood Cells % 0 % (-); Platelet Count 359 10^3/uL (130-400); Red Blood Cell Count 4.14 10^6/uL (4.70-6.10); Red Cell Dist. Width 15.9 % (11.5-14.5); White Blood Cell Count 9.1 10^3/uL (4.8-10.8)
[2024-07-19 13:05] LABS: ALT (SGPT) < 10 U/L (0-50); AST (SGOT) 14 U/L (17-59); Albumin 3.1 g/dl (3.5-5.0); Alkaline Phosphatase 158 U/L (38-126); Blood Urea Nitrogen 21 mg/dl (9-20); Calcium 8.5 mg/dl (8.4-10.2); Carbon Dioxide 30 mmol/L (22-30); Chloride 99 mmol/L (98-107); Glucose 181 mg/dl (70-99); Lipase 43 U/L (23-300); Potassium 4.7 mmol/L (3.5-5.1); Sodium 135 mmol/L (135-145); Total Bilirubin 0.3 mg/dl (0.2-1.3); Total Protein 6.8 g/dl (6.3-8.2); eGFR > 60.00
--- NOTE | 2024-07-19 13:25 | EDRN ---
Pt has chronic wounds of sacral/ buttocks , lt lat ankle that are managed by [facility]. He had the wound care team today redress these areas
== END 2024-07-19 19:51 | disposition home or self-care (01) ==
LOC: EMR 11:44
PROVIDERS: EMERGENCY PHYSICIAN Emergency Medicine
DX: R11.10 Vomiting, unspecified (principal); R14.0 Abdominal distension (gaseous); I10 Essential (primary) hypertension; E11.51 Type 2 diabetes mellitus with diabetic peripheral angiopathy without gangrene; E03.9 Hypothyroidism, unspecified; E78.00 Pure hypercholesterolemia, unspecified; G35 Multiple sclerosis; G47.30 Sleep apnea, unspecified; D64.9 Anemia, unspecified; Z86.718 Personal history of other venous thrombosis and embolism; Z85.828 Personal history of other malignant neoplasm of skin; Z79.84 Long term (current) use of oral hypoglycemic drugs; I25.10 Atherosclerotic heart disease of native coronary artery without angina pectoris; Z88.8 Allergy status to other drugs, medicaments and biological substances; Z91.013 Allergy to seafood
CPT/HCPCS: 99284; 74177; 80053; 83690; 85025; 93005; Q9967

== ENCOUNTER → 2024-08-27 09:15 | Outpatient (REF) | payer MEDICARE, OTHER, SELFPAY ==
[2024-08-27 12:49] LABS: TSH 3.58 uIU/ml (0.47-4.68)
== END ==
LOC: OLABN 09:15
PROVIDERS: ATTENDING PHYSICIAN Student in an Organized Health Care Education/Training Program
DX: E03.9 Hypothyroidism, unspecified (principal)
CPT/HCPCS: 36415; 84443

== ENCOUNTER → 2024-09-03 11:12 | Outpatient (REF) | payer MEDICARE, OTHER, SELFPAY ==
[2024-09-03 13:01] LABS: Blood Urea Nitrogen 30 mg/dl (9-20); Calcium 8.4 mg/dl (8.4-10.2); Carbon Dioxide 30 mmol/L (22-30); Chloride 101 mmol/L (98-107); Glucose 273 mg/dl (70-99); HDL Cholesterol 40 mg/dl; LDL Cholesterol, Calculated 79 mg/dl; Magnesium 2.1 mg/dl (1.6-2.3); Potassium 4.2 mmol/L (3.5-5.1); Sodium 140 mmol/L (135-145); Total Cholesterol 144 mg/dl (50-199); Triglyceride 128 mg/dl (10-149); Very Low Density Lipoprotein 25 mg/dl (0-30); eGFR > 60.00
== END ==
LOC: OLABN 11:12
PROVIDERS: ATTENDING PHYSICIAN Student in an Organized Health Care Education/Training Program
DX: E78.3 Hyperchylomicronemia (principal)
CPT/HCPCS: 36415; 80048; 80061; 83735

== ENCOUNTER → 2024-09-19 10:24 | Outpatient (REF) | payer MEDICARE, OTHER, SELFPAY ==
[2024-09-19 13:01] LABS: Blood Urea Nitrogen 29 mg/dl (9-20); Calcium 8.7 mg/dl (8.4-10.2); Carbon Dioxide 29 mmol/L (22-30); Chloride 101 mmol/L (98-107); Glucose 131 mg/dl (70-99); Potassium 4.5 mmol/L (3.5-5.1); Sodium 140 mmol/L (135-145); eGFR > 60.00
== END ==
LOC: OLABN 10:24
PROVIDERS: ATTENDING PHYSICIAN Student in an Organized Health Care Education/Training Program
DX: I10 Essential (primary) hypertension (principal)
CPT/HCPCS: 36415; 80048

== ENCOUNTER → 2024-09-21 09:59 | Outpatient (REF) | payer MEDICARE, OTHER, SELFPAY ==
[2024-09-21 11:08] LABS: Hematocrit 34.1 % (39.0-52.0); Hemoglobin 10.6 g/dL (13.0-18.0); Mean Corp Hgb Conc. 31.1 g/dL (33.0-37.0); Mean Corpuscular Hgb 24.6 pg (27.0-31.0); Mean Corpuscular Volume 79.1 fL (80.0-94.0); Mean Platelet Volume 9.4 fL (7.4-10.4); Platelet Count 351 10^3/uL (130-400); Red Blood Cell Count 4.31 10^6/uL (4.70-6.10); Red Cell Dist. Width 17.4 % (11.5-14.5)
== END ==
LOC: OLABN 09:59
PROVIDERS: ATTENDING PHYSICIAN Student in an Organized Health Care Education/Training Program
DX: I10 Essential (primary) hypertension (principal)
CPT/HCPCS: 36415; 85027

== ENCOUNTER → 2024-09-21 23:15 | Outpatient (REF) | payer MEDICARE, OTHER, SELFPAY ==
[2024-09-22 11:36] LABS: Urine Albumin 2+ (Neg - Trace); Urine Bilirubin Negative (Negative); Urine Character Clear (Clear); Urine Color Yellow; Urine Glucose Negative (Negative); Urine Ketone Negative (Negative); Urine Leukocyte 3+ (Negative); Urine Nitrite Positive (Negative); Urine Occult Blood 1+ (Negative); Urine Urobilinogen Negative (Neg - 1+)
[2024-09-22 12:09] LABS: Urine Bacteria Many (Negative); Urine White Cell 30-40 /HPF (0-5)
== END ==
LOC: OLABN 23:15
PROVIDERS: ATTENDING PHYSICIAN Student in an Organized Health Care Education/Training Program
DX: D72.829 Elevated white blood cell count, unspecified (principal); Z93.59 Other cystostomy status
CPT/HCPCS: 81003; 81015; 87086

== ENCOUNTER → 2024-11-02 11:21 | Outpatient (REF) | payer MEDICARE, OTHER, SELFPAY ==
[2024-11-02 12:51] LABS: ALT (SGPT) < 10 U/L (0-50); AST (SGOT) 16 U/L (17-59); Albumin 3.2 g/dl (3.5-5.0); Alkaline Phosphatase 144 U/L (38-126); Direct Bilirubin 0.2 mg/dl (0.0-0.4); Total Bilirubin 0.5 mg/dl (0.2-1.3); Total Protein 6.7 g/dl (6.3-8.2)
[2024-11-02 13:38] LABS: GGTP 17 U/L (15-73)
== END ==
LOC: OLABN 11:21
PROVIDERS: ATTENDING PHYSICIAN Student in an Organized Health Care Education/Training Program
DX: R52 Pain, unspecified (principal); R10.9 Unspecified abdominal pain; Z79.899 Other long term (current) drug therapy
CPT/HCPCS: 36415; 80076; 82977

== ENCOUNTER 2024-12-31 22:09 | Emergency (ER) | payer MEDICARE, OTHER, SELFPAY ==
[2024-12-31 22:11] VITALS: BP 105/65
[2024-12-31 22:30] VITALS: BMI 35.9
[2024-12-31 22:39] LABS: Urine Character Clear (Clear)
[2024-12-31 22:40] LABS: Hematocrit 35.0 % (39.0-52.0); Hemoglobin 10.7 g/dL (13.0-18.0); Mean Corp Hgb Conc. 30.6 g/dL (33.0-37.0); Mean Corpuscular Volume 78.1 fL (80.0-94.0); Nucleated Red Blood Cells % 0 % (-); Platelet Count 380 10^3/uL (130-400); Red Cell Dist. Width 17.4 % (11.5-14.5)
[2024-12-31 22:45] LABS: Urine Squamous Cell 0-2 /LPF (Few)
[2024-12-31 22:47] LABS: Urine White Cell 26-30 /HPF (0-5)
[2024-12-31 22:54] LABS: ALT (SGPT) < 10 U/L (0-50); AST (SGOT) 12 U/L (17-59); Albumin 3.4 g/dl (3.5-5.0); Alkaline Phosphatase 125 U/L (38-126); Blood Urea Nitrogen 22 mg/dl (9-20); Calcium 8.5 mg/dl (8.4-10.2); Carbon Dioxide 36 mmol/L (22-30); Chloride 96 mmol/L (98-107); Estimated Creatinine Clearance > 125 ml/min; Glucose 149 mg/dl (70-99); Lipase 47 U/L (23-300); Potassium 3.9 mmol/L (3.5-5.1); Sodium 136 mmol/L (135-145); Total Protein 7.2 g/dl (6.3-8.2); eGFR > 60.00
[2024-12-31 23:39] VITALS: BP 93/57
--- NOTE | 2024-12-31 23:45 | ED.GENMED ---
History of Present Illness
General
Chief Complaint: Abdominal Pain
Source: patient
Exam Limitations: none
Time Seen by Provider: 12/31/24 23:40
Nursing documentation reviewed up to this point in time: agreed with
History of Present Illness
History of Present Illness:
Note:
CHIEF COMPLAINT(S)
Abdominal pain and nausea.
HISTORY OF PRESENT ILLNESS
The patient is a 69-year-old male with a history of neurogenic bladder due to multiple sclerosis, coronary artery disease, hypertension, hyperlipidemia, diabetes, hypothyroidism, presenting with a complaint of abdominal pain and persistent nausea.
The patient reports that the abdominal discomfort has been ongoing for approximately one month. The pain is localized to the middle of the abdomen and is associated with a feeling of nausea almost daily. Despite the nausea, the patient reports
having regular bowel movements. The abdominal pain does not radiate to the back and is distinct from any pain experienced during previous urinary tract infections. The patient received liquid ondansetron (Zofran) en route to the hospital, which
provided some relief of symptoms. The patient has a suprapubic catheter, which was last changed three days ago, and reports urinary tract infections in the past, typically about two per year. Current symptoms of potential urinary tract infection
include leakage and occasional fever, although there is no fever today according to recent vital signs. The patient has a history of being hospitalized in the intensive care unit a few years ago with an unspecified condition described as a file
'coming out a lot' and was very sick during that time. The patient also has pressure wounds, with a new wound recently identified on the right side, although it does not cause significant discomfort and it was dressed by wound care staff at
[facility][1]. The patient also feels like his abdomen has been distended. He denies vomiting. There is noted to be a mild small bowel ileus on x-ray that was done at the senior care.
ADDITIONAL HISTORY OBTAINED FROM SOURCES OTHER THAN THE PATIENT
According to the patients caregiver, there have been daily incidences of nausea, usually alleviated somewhat by meals when palatable food is available.
SOCIAL DETERMINANTS AFFECTING HEALTH
The patient resides at [facility][1], where menu options may occasionally affect his willingness to eat, potentially impacting nutritional status.
MEDICATIONS
The patient reports receiving ondansetron for nausea and some type of proton pump inhibitor for gastroesophageal symptoms. He reports that the Zofran improves his stomach symptoms
PHYSICAL EXAM
Nursing notes reviewed and vital signs reviewed.
General: Patient is well appearing and in no acute distress; non-toxic
Skin: Warm and dry, no rashes or lesions
Head: Normocephalic, atraumatic
Eyes: Sclera non-icteric. EOMs intact.
Cardiac: Regular rate and rhythm, no murmurs
Pulm: Normal respiratory effort, no wheezes, rales, rhonchi
Abdomen: Mild abdominal distention noted, mild periumbilical tenderness palpation, no rebound tenderness, no guard
Neuro: CN II-XII intact, no focal neurologic deficits.
Psychiatric: Appropriate mood and affect.
PLAN
CBC, CMP, lipase, urinalysis, CT abdomen pelvis with IV contrast
DIFFERENTIAL DIAGNOSIS
The Differential Diagnosis includes, in no particular order and is not limited to:
1. Partial bowel obstruction
2. Ileus
3. Gastroparesis
4. Gastritis
5. Peptic ulcer disease
6. Pancreatitis
7. Cholecystitis
8. Urinary tract infection
9. Appendicitis
10. Diverticulitis
CHART REVIEW
Reviewed ER physician documentation from 07/19/2024 patient seen for abdominal pain and vomiting distention, he had a unremarkable workup and he was discharged home, reviewed ER physician documentation from 09/01/2023 patient seen for similar symptoms
he had CAT scan done and unremarkable workup
Reviewed discharge summary from 07/15/2023 patient seen for septic shock requiring pressors associated with a catheter associated infection
Reducers removed on 11/15/2022 patient for severe sepsis secondary to right leg cellulitis
MDM/DISPOSITION
The patient is a 69-year-old male with a history of neurogenic bladder due to multiple sclerosis, coronary artery disease, hypertension, hyperlipidemia, diabetes, hypothyroidism, presenting with a complaint of abdominal pain and persistent nausea.
The patient reports that the abdominal discomfort has been ongoing for approximately one month. Zofran does improve his symptoms. He has not seen a concrete gun operator as an outpatient multiple years. He was sent in because his x-ray as outpatient
showed a mild small bowel ileus. Patient denies any fevers. Physical exam patient is well-appearing no acute distress he is some abdominal ascension noted with some palpable tenderness periumbilically. He is afebrile. His lab work shows no
leukocytosis and he does have elevated BUN/creatinine ratio suggesting dehydration did give IV fluids. His CT scan does show moderate stool burden. This may have been responsible for mild ileus noted on x-ray. Patient does follow a stool regimen
of Colace and MiraLAX daily. He states he has been having bowel movements. Discussed small frequent meals that may help with symptoms and increase hydration. No clear findings on CAT scan explain his symptoms although chronic constipation may
explain his chronic abdominal pain. Discussed conservative management at home. Patient has not had any pelvic pain or fever but looking at his urinalysis, there is some bacteria which is not uncommon for suprapubic catheter however there is
nitrates noted. These are almost always present on his urinalysis. Considering there is no clear etiology patient's pain today and he feels like his chronic pain has gotten worse recently, will cover with antibiotics pending urine culture, did
review previous urine cultures which shows ESBL as well as Proteus which is susceptibility acute Augmentin. Patient stable for discharge.
Past History
Past History
ED Past Medical History: CAD, Cancer (Skin CA), HTN, Hypercholesterolemia, NIDDM, Hypothyroidism, Other (Multiple sclerosis, PE, PVD, Pressure ulcers, DVT, Sleep apnea, Anemia, ) and Other (prior vasovagal episodes related to constipation issues,
chronic constipation)
ED Past Surgical History: Appendectomy, Orthopedic (Right femur), Tonsilectomy (Adenoids), Urological (Suprapubic catheter) and Other (Baclofen pump insertion. IVC filter)
Social History
Tobacco: Non-smoker
Alcohol: None
Drug: None
Personal:
Living: senior care
Employment: Not employed
Family History
Family History: Other (Reviewed and noncontributory)
Review of Systems
Review of Systems
All Other Systems: ROS reviewed and negative except as documented in HPI and ROS
Phy Exam
Physical Exam
Physical Exam:
see hpi
Course
Orders/Labs/Results
Orders:
Orders
12/31/24 22:30
Complete Blood Count/With Diff Urgent
Comprehensive Metabolic Panel Urgent
Lipase Urgent
Urine Microscopic Reflex Cult Urgent
Urine Reflex Culture from UA [Urinalysis Reflex To Culture] Urgent
Date Specimen was Collected: 12/31/24
Time Specimen was Collected: 22:21
Urine Culture Urgent
MARA Source: U
Specimen Description:
Date Specimen was Collected: 12/31/24
Time Specimen was Collected: 22:21
12/31/24 23:58
0.9% Sodium Chloride 500 ml [Nss] 500 ml IV BOLUS
Pantoprazole [Protonix IV] 40 mg IV NOW STA
01/01/25 00:00
CT Abd/pelvis W Iv Cont Urgent
Comment:
Reason For Exam: periumbilical pain
Abnormal Lab Results
12/31/24
22:30
RBC 4.48 L 10^6/uL
(4.70-6.10)
Hgb 10.7 L g/dL
(13.0-18.0)
Hct 35.0 L %
(39.0-52.0)
MCV 78.1 L fL
(80.0-94.0)
MCH 23.9 L pg
(27.0-31.0)
MCHC 30.6 L g/dL
(33.0-37.0)
RDW 17.4 H %
(11.5-14.5)
Absolute Neuts (auto) 6.8 H 10^3/uL
(1.4-6.5)
Chloride 96 L mmol/L
(98-107)
Carbon Dioxide 36 H mmol/L
(22-30)
BUN 22 H mg/dl
(9-20)
Glucose 149 H mg/dl
(70-99)
AST 12 L U/L
(17-59)
Albumin 3.4 L g/dl
(3.5-5.0)
Ur Occult Blood Reflex 3+ A
(Negative)
Urine Nitrite (Reflex) Positive A
(Negative)
Leukocyte Esterase Rfl 3+ A
(Negative)
Urine RBC 11-15 A /HPF
(0-2)
Urine WBC (Reflex) 26-30 A /HPF
(0-5)
Urine Bacteria (Reflex) Many A
(Negative)
Urine Albumin (Reflex) 1+ A
(Neg - Trace)
12/31/24 22:30
12/31/24 22:30
Vital Signs
Initial and Last Documented VS:
Initial Vital Signs
Temp Pulse Resp BP Pulse Ox
98.2 F 75 20 105/65 94
12/31/24 22:11 12/31/24 22:11 12/31/24 22:11 12/31/24 22:11 12/31/24 22:11
Last Documented Vital Signs
Temp Pulse Resp BP Pulse Ox
98.2 F 75 19 108/63 95
12/31/24 22:11 01/01/25 05:07 01/01/25 05:07 01/01/25 05:07 01/01/25 02:45
*Pulse Oximetry
SaO2: 94
Oxygen Mode of Delivery: Room air
Patient hypoxic: no
*Critical Care Note
Total Time (30-74mins, 75-104mins- exclusive of procedures): Not Applicable
ED Attending Note
-
Portions of this chart may have been created with voice recognition software.� Occasional wrong word or��sound alike� substitutions may have occurred due to the inherent limitations of voice recognition software.
Discharge Plan
Departure
Patient Disposition: Home (Routine Discharge)
Date of Disposition: 01/01/25
Time of Disposition: 02:41
Patient with high blood pressure during this ER visit?: No
Condition: Good
Discharge Problem:
Abdominal pain, Abnormal urinalysis
Instructions: Urinary Incontinence, Adult ED, Abdominal Pain
Prescriptions:
New
amoxicillin-pot clavulanate 875-125 mg tablet
1 tab PO BID 7 Days Qty: 14 0RF
No Action
metformin 500 mg Tablet
500 mg PO BID@0830,1830
atorvastatin 20 mg Tablet
20 mg PO HS
sennosides-docusate sodium [Senokot-S] 8.6-50 mg Tablet
2 tab-cap PO BID
magnesium hydroxide [Milk of Magnesia] 400 mg/5 mL Suspension
30 ml PO HS PRN (Reason: constipation)
ferrous sulfate 325 mg (65 mg iron) Tablet
325 mg PO MOWEFR
levothyroxine 150 mcg Tablet
150 mcg PO DAILY@0630
magnesium oxide 400 mg magnesium Tablet
400 mg PO BID
acetaminophen 325 MG tablet
650 mg PO Q4HPRN PRN (Reason: fever>100.4, mild pain)
bisacodyl 10 MG suppository
10 mg MS [id number] PRN (Reason: if no bm on 3rd day)
Visbiome 112.5 billion cell Capsule
1 cap PO BID
calcium carbonate [Calcium 600] 600 mg calcium (1,500 mg) Tablet
600 mg PO BID
simethicone 80 mg Tablet,Chewable
80 mg PO AC
Patient Own Medication Pump
intrathecal .CONTINUOUS
Rx Instructions:
baclofen and morphine
potassium chloride [Klor-Con M20] 20 mEq tablet,ER particles/crystals
20 meq PO BID
metoprolol succinate [Toprol XL] 50 mg tablet extended release 24 hr
50 mg PO DAILY
polyethylene glycol 3350 [HealthyLax] 17 gram powder in packet
17 g PO BID AT 0800,1600
Rx Instructions:
Every other day
furosemide 40 mg Tablet
40 mg PO DAILY Qty: 30 0RF
Rx Instructions:
follow wt and change to prn when wt back to prior baseline
metoprolol succinate 25 mg Tablet Extended Release 24 Hr
25 mg PO DAILY Qty: 30 0RF
cholecalciferol (vitamin D3) [Vitamin D3] 125 mcg (5,000 unit) Tablet
125 mcg PO WEEKLY
naloxone [Narcan] 0.4 mg/mL Solution
0.4 mg SC ONCE PRN (Reason: opioid overdose)
omeprazole 10 mg Capsule,Delayed Release(Dr/Ec)
10 mg PO DAILY
melatonin 10 mg Tablet
10 mg PO HS
Eliquis 5 mg Tablet
5 mg PO BID
ondansetron HCl [Zofran] 4 mg Tablet
4 mg PO Q6H PRN (Reason: nausea/vomiting )
glucagon HCl [Glucagon (HCl) Emergency Kit] 1 mg Recon Soln
1 mg SC Q15M PRN (Reason: hypoglycemia)
Referrals:
Aron Palacios DO [Family Provider, Family Practice]
Jason Jaffe DO [Active, Gastroenterology] - Call in 1-3 days for appt
Activity Restrictions/Additional Instructions:
Your urinalysis was abnormal. It was sent to culture. Antibiotic was sent to your pharmacy, please take one tablet once daily for 7 days.
Please continue to use your Zofran as needed. Please call the attached number to schedule appointment to see gastroenterology in follow up.
Please continue your stool regimen. PLEASE RETURN TO THE EMERGENCY DEPARTMENT SHOULD YOU DEVELOP ACUTE WORSENING OF HER SYMPTOMS, FEVERS OR CHILLS, INTRACTABLE NAUSEA OR VOMITING, INABILITY TO TOLERATE ORAL INTAKE, CHEST PAIN, SHORTNESS OF BREATH,
RECTAL BLEEDING, DARK TARRY STOOLS, VOMITING OF BLOOD, OR ANY OTHER SIGNS OR SYMPTOMS WORRISOME TO YOU.
Interventions
Interventions:
*Risk Screen - Suicide Last Done: 12/31/24 22:11
*General Assessment Last Done: 12/31/24 22:11
*Neglect/Abuse Screening Last Done: 12/31/24 22:11
*ED- Fall Risk Assessment Last Done: 12/31/24 22:19
*ED COVID-19 Vaccine History Last Done: 12/31/24 22:11
*Nursing Disposition Last Done: 01/01/25 05:16
GX-Zhupby-Yrehigmmjj Assessment Last Done: 12/31/24 22:30
Discharge Date and Time
Discharge Date/Time: 01/01/25 05:17
Print Language: JORDANIAN
[2025-01-01] VITALS: BP 107/71
[2025-01-01] MEDS: NSS 500 IV (00:26)
[2025-01-01] MEDS: PROTONIX IV 40 MG IV (00:29)
[2025-01-01 02:01] VITALS: BP 111/72
[2025-01-01 05:07] VITALS: BP 108/63
== END 2025-01-01 05:17 | disposition home or self-care (01) ==
LOC: EMR 22:09
PROVIDERS: Emergency Medicine; EMERGENCY PHYSICIAN Student in an Organized Health Care Education/Training Program; FAMILY PHYSICIAN Student in an Organized Health Care Education/Training Program
DX: R10.9 Unspecified abdominal pain (principal); R82.90 Unspecified abnormal findings in urine; R11.0 Nausea; I25.10 Atherosclerotic heart disease of native coronary artery without angina pectoris; I10 Essential (primary) hypertension; E78.00 Pure hypercholesterolemia, unspecified; E11.51 Type 2 diabetes mellitus with diabetic peripheral angiopathy without gangrene; E11.69 Type 2 diabetes mellitus with other specified complication; G35 Multiple sclerosis; E03.9 Hypothyroidism, unspecified; G47.30 Sleep apnea, unspecified; Z85.828 Personal history of other malignant neoplasm of skin; Z86.718 Personal history of other venous thrombosis and embolism; Z87.440 Personal history of urinary (tract) infections; Z90.49 Acquired absence of other specified parts of digestive tract
CPT/HCPCS: 99284; 96374; 96361; 74177; 80053; 81003; 81015; 83690; 85025; 87086; Q9967

== ENCOUNTER → 2025-02-25 11:01 | Outpatient (REF) | payer MEDICARE, OTHER, SELFPAY ==
[2025-02-25 12:51] LABS: TSH 2.17 uIU/ml (0.47-4.68)
== END ==
LOC: OLABN 11:01
PROVIDERS: ATTENDING PHYSICIAN Student in an Organized Health Care Education/Training Program
DX: E03.9 Hypothyroidism, unspecified (principal)
CPT/HCPCS: 36415; 84443

== ENCOUNTER → 2025-03-26 07:50 | Outpatient (REF) | payer MEDICARE, OTHER, SELFPAY | LOC: WOUND 07:50 | PROVIDERS: ATTENDING PHYSICIAN Surgery; FAMILY PHYSICIAN Student in an Organized Health Care Education/Training Program | DX: L89.154 Pressure ulcer of sacral region, stage 4 (principal); L89.324 Pressure ulcer of left buttock, stage 4; M86.9 Osteomyelitis, unspecified; G35.D Multiple sclerosis, unspecified | CPT/HCPCS: 99203 ==

== ENCOUNTER → 2025-04-10 09:56 | Outpatient (REF) | payer MEDICARE, OTHER, SELFPAY | LOC: MRI 09:56 | PROVIDERS: ATTENDING PHYSICIAN Student in an Organized Health Care Education/Training Program | DX: M86.68 Other chronic osteomyelitis, other site (principal) | CPT/HCPCS: 72197; A9575 ==

== ENCOUNTER → 2025-04-29 11:09 | Outpatient (REF) | payer MEDICARE, OTHER, SELFPAY ==
[2025-04-29 11:52] LABS: Hematocrit 32.4 % (39.0-52.0); Hemoglobin 9.7 g/dL (13.0-18.0); Mean Corp Hgb Conc. 29.9 g/dL (33.0-37.0); Mean Corpuscular Volume 77.7 fL (80.0-94.0); Nucleated Red Blood Cells % 0 % (-); Platelet Count 447 10^3/uL (130-400); Red Cell Dist. Width 19.2 % (11.5-14.5)
[2025-04-29 12:05] LABS: ALT (SGPT) < 10 U/L (0-50); AST (SGOT) 13 U/L (17-59); Albumin 3.0 g/dl (3.5-5.0); Alkaline Phosphatase 123 U/L (38-126); Blood Urea Nitrogen 24 mg/dl (9-20); Calcium 8.5 mg/dl (8.4-10.2); Carbon Dioxide 33 mmol/L (22-30); Chloride 101 mmol/L (98-107); Glucose 126 mg/dl (70-99); Magnesium 2.2 mg/dl (1.6-2.3); Sodium 138 mmol/L (135-145); Total Protein 6.7 g/dl (6.3-8.2); eGFR > 60.00
[2025-04-29 12:11] LABS: Potassium 4.2 mmol/L (3.5-5.1)
== END ==
LOC: OLABN 11:09
PROVIDERS: ATTENDING PHYSICIAN Student in an Organized Health Care Education/Training Program
DX: I48.91 Unspecified atrial fibrillation (principal)
CPT/HCPCS: 36415; 80053; 83735; 85025

== ENCOUNTER → 2025-04-30 10:46 | Outpatient (REF) | payer MEDICARE, OTHER, SELFPAY ==
[2025-04-30 12:14] LABS: Urine Character Clear (Clear)
[2025-04-30 12:24] LABS: Urine Red Blood Cell 0-2 /HPF (0-2); Urine Squamous Cell 0-2 /LPF (Few); Urine White Cell 26-30 /HPF (0-5)
== END ==
LOC: OLABN 10:46
PROVIDERS: ATTENDING PHYSICIAN Student in an Organized Health Care Education/Training Program
DX: D72.829 Elevated white blood cell count, unspecified (principal); Z93.59 Other cystostomy status
CPT/HCPCS: 81003; 81015; 87077; 87086; 87186

== ENCOUNTER → 2025-05-06 10:47 | Outpatient (REF) | payer MEDICARE, OTHER, SELFPAY ==
[2025-05-06 12:39] LABS: Hematocrit 32.7 % (39.0-52.0); Hemoglobin 9.6 g/dL (13.0-18.0); Mean Corp Hgb Conc. 29.4 g/dL (33.0-37.0); Mean Corpuscular Volume 79.0 fL (80.0-94.0); Nucleated Red Blood Cells % 0 % (-); Platelet Count 458 10^3/uL (130-400); Red Cell Dist. Width 19.1 % (11.5-14.5)
[2025-05-06 12:43] LABS: ALT (SGPT) < 10 U/L (0-50); AST (SGOT) 11 U/L (17-59); Albumin 3.2 g/dl (3.5-5.0); Alkaline Phosphatase 130 U/L (38-126); Blood Urea Nitrogen 23 mg/dl (9-20); Calcium 8.3 mg/dl (8.4-10.2); Carbon Dioxide 33 mmol/L (22-30); Chloride 99 mmol/L (98-107); Glucose 89 mg/dl (70-99); Potassium 4.7 mmol/L (3.5-5.1); Sodium 136 mmol/L (135-145); Total Protein 6.9 g/dl (6.3-8.2); eGFR > 60.00
== END ==
LOC: OLABN 10:47
PROVIDERS: ATTENDING PHYSICIAN Student in an Organized Health Care Education/Training Program
DX: I48.91 Unspecified atrial fibrillation (principal)
CPT/HCPCS: 36415; 80053; 85025